=== PATIENT | female | born 1940 | race Caucasian/White ===

== ENCOUNTER 2022-01-09 09:20 | Inpatient (IN) ==
[2022-01-09] MEDS ORDERED: 0.9 % SODIUM CHLORIDE 1,000 ML IV ONE (09:34)
[2022-01-09] MEDS ORDERED: PANTOPRAZOLE 40 MG VIAL IV ONE (09:34)
[2022-01-09] MEDS ORDERED: 0.9 % SODIUM CHLORIDE 250 ML IV SCH ×4 (09:45→21:18)
[2022-01-09] MEDS ORDERED: PANTOPRAZOLE 80 MG in 0.9 % SODIUM CHLORIDE 100 ML IV SCH (09:45)
[2022-01-09] MEDS ORDERED: DESMOPRESSIN ACETATE 20 MCG in 0.9 % SODIUM CHLORIDE 50 ML IV ONE (09:49)
[2022-01-09 10:07] LABS: POC Blood Urea Nitrogen 57 mg/dL (6-20); POC CO2 9 mmol/L (22-30); POC Calcium, Ionized 1.04 mmEq/L (1.16-1.32); POC Chloride 89 mEq/L (96-108); POC Creatinine 3.7 mg/dL (0.6-1.2); POC Glucose, Random > 700 mg/dL; POC Hematocrit 40 % (36-48); POC Potassium 6.6 mEql/L (3.3-5.1); POC Sodium 118 mEq/L (133-145)
[2022-01-09] MEDS ORDERED: CALCIUM CHLORIDE 1,000 MG in DEXTROSE 5% IN WATER 50 ML IV ONE (10:12)
--- NOTE | 2022-01-09 10:13 | EKG ---
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 Measurements Intervals [place] Rate: 89 P: SC: QRS: 108 QRSD: 124 T: -24 QT: 434 QTc: 529 Interpretive Statements Accelerated junctional rhythm Right bundle branch block Inferior and Lateral ST depressions suggestive of ischemia BORDERLINE ST ELEVATION, ANTERIOR LEADS Electronically Signed On 01-09-2022 10:13:07 PDT by Darrell Carter M.D. /store/[email or web address]/[id number]
[2022-01-09] MEDS ORDERED: VANCOMYCIN 1,500 MG in 0.9 % SODIUM CHLORIDE 500 ML IV ONE (10:46)
[2022-01-09] MEDS ORDERED: CEFEPIME 2 GM VIAL IV ONE (10:46)
[2022-01-09] MEDS ORDERED: LACTATED RINGERS 1,000 ML IV ONE ×2 (10:47)
[2022-01-09] MEDS ORDERED: PHYTONADIONE 10 MG in 0.9 % SODIUM CHLORIDE 50 ML IV ONE (10:48)
[2022-01-09 10:58] LABS: Partial Thromboplastin Time 43.7 sec (20.0-37.0)
--- NOTE | 2022-01-09 11:05 | XRay Report ---
INDICATION: GI BLEED TECHNIQUE: AP supine chest x-ray COMPARISON: None FINDINGS: Right central venous catheter with its tip at the junction of the superior vena cava and right atrium. No pneumothorax identified on this AP, supine radiograph. Lungs are abnormal. Vascularity is prominent and there is probable interstitial pulmonary edema. Atypical pneumonia is possible. Heart size is at the upper limits of normal considering AP, supine positioning. IMPRESSION: 1. Right central venous catheter at the aortocaval junction 2. No pneumothorax identified on supine radiograph 3. Abnormal lungs may represent pulmonary edema or atypical pneumonia. Interpreted and Authenticated by: Darrell Wagner 01/09/22
[2022-01-09 11:16] LABS: ALT/SGPT 10 U/L (<40); AST/SGOT 10 U/L (<32); Albumin 3.5 gm/dL (3.2-5.2); Albumin/Globulin Ratio 1.3 (1.0-2.3); Alkaline Phosphatase 78 U/L (39-117); Bilirubin,Total 0.4 mg/dL (0.1-1.0); Blood Urea Nitrogen 67 mg/dL (8-23); Calcium 8.7 mg/dL (8.6-10.4); Carbon Dioxide 6 mmol/L (22-30); Chloride 73 mmol/L (96-108); Globulin 2.6 gm/dL (2.2-3.7); Glomerular Filtration Rate 10; Glucose 1253 mg/dL (70-105)
[2022-01-09] MEDS: NOREPINEPHRINE BITARTRATE 16 MG in 0.9 % SODIUM CHLORIDE 234 ML IV SCH (11:35)
[2022-01-09] MEDS: INSULIN REGULAR, HUMAN 50 UNIT in 0.9 % SODIUM CHLORIDE 99.5 ML IV SCH ×2 (11:44→21:44)
[2022-01-09 11:45] LABS: Basophils # (Auto) 0.02 K/mcL (0.00-0.30); Basophils % (Auto) 0.1 % (0.0-2.0); Eosinophils # (Auto) 0 K/mcL (0.00-0.70); Eosinophils % (Auto) 0 % (0.0-7.0); Hematocrit 41.7 % (34.1-44.9); Hemoglobin 12.5 g/dL (11.2-15.7); Lymphocytes # (Auto) 0.78 K/mcL (1.50-4.80); Lymphocytes % (Auto) 5.5 % (15.5-49.0); Mean Cell Volume 107.2 fL (80.0-100.0); Mean Platelet Volume 13.3 fL (7.4-10.4); Monocytes # (Auto) 0.51 K/mcL (0.10-0.90); Monocytes % (Auto) 3.6 % (1.0-12.0); Neutrophils % (Auto) 90.8 % (38.0-78.0); Platelet Count 107 K/mcL (140-440); RBC 3.89 M/mcL (3.59-5.38); Red Cell Distribution Width 13.2 % (11.5-14.5); WBC 14.2 K/mcL (4.5-11.0)
--- NOTE | 2022-01-09 12:51 | Emergency Department Note ---
HPI General Chief complaint: Blood Sugar Problem Stated complaint: Low blood pressure, elevated blood sugar Time Seen by Provider: 01/09/22 09:26 Source: patient and EMS Mode of arrival: EMS Limitations: no limitations History of Present Illness HPI Narrative: Narrative: 81-year-old female with history of CKD 4, diabetes, hypertension, hyperlipidemia, atrial fibrillation on anticoagulation with Coumadin, history based on prior chart with patient unable to really provide much information on her history presents via EMS for evaluation of report of syncopal events and coffee ground emesis. On EMS arrival, she is awake and alert, does not really know what happened. To me she denies any acute complaints. She denies headache or dizziness. She denies focal weakness. She denies numbness or tingling. She denies chest pain or shortness of breath. She denies any abdominal pain or nausea. She denies dysuria or frequency that she is aware of. She denies any known black tarry stools or any bloody stools. She is not really sure about any medication changes. EM caveat invoked for poor historian, but patient is alert and oriented and able to answer other questions appropriately. On arrival she is severely hypotensive, seen immediately in room Related Data Home Medications Medication Instructions Recorded Confirmed insulin lispro [Humalog KwikPen 37 units SUB-Q TID 04/13/16 01/10/22 Insulin] blood sugar diagnostic (Precision #20 each 09/10/17 01/01/22 Xtra Test) pen needle, diabetic 31 gauge x #30 each 09/10/17 01/01/22/16" (Easy Comfort Pen [place]) carvedilol 6.25 mg tablet 6.25 mg PO BID tab 04/27/18 01/09/22 iron, carbonyl 45 mg tablet 45 mg PO QHS tab 04/27/18 01/09/22 warfarin 5 mg tablet 5 mg PO QDAY tab 06/22/19 01/09/22 triamterene 37.5 1 cap PO QDAY 08/23/19 01/09/22 mg-hydrochlorothiazide 25 mg capsule alendronate 70 mg tablet 70 mg PO QWEEK 01/21/21 01/09/22 losartan 50 mg tablet 50 mg PO BID 01/09/22 01/09/22 nystatin 100,000 unit/gram topical 1 applic TOPICAL BID PRN 01/09/22 01/09/22 powder simvastatin 20 mg tablet 1 tab PO HS 01/09/22 01/09/22 Previous Rx's Medication Instructions Recorded cholecalciferol (vitamin D3) 50 2,000 unit PO QDAY #90 cap 12/20/17 mcg (2,000 unit) capsule insulin glargine 100 unit/mL (3 18 unit (0.18 mL) SUB-Q QHS #15 ml 09/19/18 mL) subcutaneous pen (Lantus Solostar U-100 Insulin) Allergies Allergy/AdvReac Type Severity Reaction Status Date / Time No Known Drug Allergies Allergy Verified 01/01/22 12:31 Review of Systems ROS ROS Narrative: Narrative: All systems ED: reviewed and negative except as stated. 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 (Chronic) CKD (chronic kidney disease) stage 4, GFR 15-29 ml/min (Chronic) Degenerative disc disease, lumbar (Acute) Secondary hyperparathyroidism of renal origin (Chronic) Localized edema due to fluid overload (Acute) Vitamin D deficiency (Chronic) Atrial fibrillation (Chronic) Iron deficiency anemia (Acute) Diastolic dysfunction (Acute) Cardiomegaly (Acute) Pulmonary hypertension (Acute) Hyperlipidemia (Acute) Hypertension (Acute) Osteoporosis (Acute) Heart trouble (Acute) Type II diabetes mellitus (Acute) Depression (Acute) Cancer (Acute) Arthritis (Acute) Medical History (Updated 01/10/22 @ 22:23 by Stan Cummins DO) Arthritis Atrial fibrillation Cancer Cardiomegaly Depression Diastolic dysfunction Heart trouble Hyperlipidemia Hypertension Iron deficiency anemia Osteoporosis Pulmonary hypertension Type II diabetes mellitus Vitamin D deficiency Surgical History Hx of colonoscopy Family History Father Stroke Social History Smoking Status: Never smoker Alcohol Intake Frequency: does not drink Substance Use: does not use Exam Narrative Narrative: Narrative: General Limitations: no limitations General appearance: Present sleepy and other (Awake but pale and acutely ill- appearing with fatigue but is able to answer questions) Head Head: Present atraumatic and normocephalic Eye Eye: Present PERRL, EOMI and other (Conjunctival pallor); Absent nystagmus ENT ENT: Present mucous membranes dry and other (Evidence of recent emesis which appears black) Neck Neck: Present normal inspection and full ROM; Absent tenderness or meningismus Chest Chest: Present normal inspection and symmetric chest wall rise; Absent tenderness Respiratory Respiratory: Present other (Tachypneic but otherwise normal); Absent respiratory distress, rales/crackles or wheezes Cardiovascular Cardiovascular: Present normal rhythm and tachycardia; Absent systolic murmur or diastolic murmur Adbominal Abdominal: Present soft; Absent distention or tenderness Rectal Rectal: Present heme (-) stool; Absent black stool Extremities Extremities: Present normal inspection and full ROM Back Back: Present normal inspection and full ROM; Absent CVA tenderness (R) or CVA tenderness (L) Neurological Neurological: Present oriented X3, CN II-XII intact and other (Sleepy but otherwise normal, answers questions poorly but oriented to person place location and events); Absent motor sensory deficit Skin Skin: Present cool, dry, pallor and other Course Vital Signs Vital signs: Vital Signs Temperature 97.4 F 01/09/22 09:24 Pulse Rate 108 H 01/09/22 09:24 Respiratory Rate 18 01/09/22 09:24 Blood Pressure 71/45 01/09/22 09:24 Pulse Oximetry (%) 98 01/09/22 09:24 Temperature 97.8 F 01/10/22 20:38 Pulse Rate 94 H 01/10/22 21:01 Respiratory Rate 33 H 01/10/22 21:01 Blood Pressure 98/64 01/10/22 21:01 Pulse Oximetry (%) 96 01/10/22 21:01 [facility] Narrative Medical decision making narrative: Narrative: Patient arrived with acute severe illness and shock with evidence of upper GI bleed with coffee-ground emesis. IV access tablets immediately and fluid bolus started, called for blood but patient is alert and oriented and refused blood transfusion. She was willing product transfused but denies blood, so deferred to crystalloid. She is on Coumadin which was reversed with 4 units of FFP. She has known severe chronic kidney disease so was given desmopressin for possible uremic bleeding. Her blood pressure did not rapidly recover, so pressors were started and central line access was obtained. She was found to be severely hyperglycemic to and following obtaining her potassium level, insulin drip was started. She was noted to be hyperkalemic and she was given calcium as well. She was given large volume fluid bolus, found to have severe metabolic acidosis likely multifactorial so bicarbonate drip was started as well. She was also found to have acute on chronic kidney disease. Given the severity of her illness, she was given day of antibiotics for possible septic etiology cultures were drawn. Lactate was elevated and did not clear with initial fluids. She is very high risk for decompensation and from this critical illness and we did closely discuss CODE STATUS, patient adamantly refuses CPR or intubation as well as any extensive surgical intervention, EGD, or dialysis. She is willing to have supportive care and see if her renal function recovers. She reports that if it is not and she is getting worse she would like to be kept comfortable but has no discomfort right now. With GI bleed edition she was given Protonix bolus, but case was discussed with GI and no indication for EGD even if patient were willing. She had prolonged stay in the emergency department and was frequently monitored for insulin adjustment, mental status, pressor changes Medical Records Medical records reviewed: Yes I reviewed the patient's medical records. Lab Data Lab results reviewed: Yes I reviewed the patient's lab results. Result diagrams: 01/10/22 17:38 01/10/22 19:54 Labs: Lab Results 01/09/22 01/09/22 01/09/22 Range/Units 09:35 09:35 09:35 WBC 14.2 H (4.5-11.0) K/mcL RBC 3.89 (3.59-5.38) M/mcL Hgb 12.5 (11.2-15.7) g/dL Hct 41.7 (34.1-44.9) % POC Hct 40 (36-48) % MCV 107.2 H (80.0-100.0) fL MCH 32.1 (26.0-34.0) pg MCHC 30.0 L (31.0-36.0) g/dL RDW 13.2 (11.5-14.5) % Plt Count 107 L (140-440) K/mcL MPV 13.3 H (7.4-10.4) fL Neut % (Auto) 90.8 H (38.0-78.0) % Lymph % (Auto) 5.5 L (15.5-49.0) % [place] % (Auto) 3.6 (1.0-12.0) % Eos % (Auto) 0 (0.0-7.0) % Baso % (Auto) 0.1 (0.0-2.0) % Lymph # (Auto) 0.78 L (1.50-4.80) K/mcL [place] # (Auto) 0.51 (0.10-0.90) K/mcL Eos # (Auto) 0 (0.00-0.70) K/mcL Baso # (Auto) 0.02 (0.00-0.30) K/mcL Absolute Neutrophils 12.84 H (1.80-8.00) K/mcL APTT 43.7 H (20.0-37.0) sec VBG Lactic Acid (0.5-2.0) mmol/L POC Sodium 118 L* (133-145) mEq/L Sodium 116 L* (133-145) mmol/L POC Potassium 6.6 H* (3.3-5.1) mEql/L Potassium 6.6 H* (3.3-5.1) mmol/L POC Chloride 89 L (96-108) mEq/L Chloride 73 L (96-108) mmol/L Carbon Dioxide 6 L* (22-30) mmol/L POC Total CO2 9 L* (22-30) mmol/L Anion Gap 37.0 H (8.0-16.0) POC BUN 57 H (6-20) mg/dL BUN 67 H (8-23) mg/dL Creatinine 3.8 H (0.6-1.1) mg/dL POC Creatinine 3.7 H (0.6-1.2) mg/dL GFR Calculation 10 Glucose 1253 H* (70-105) mg/dL POC Glucose > 700 H* mg/dL Calcium 8.7 (8.6-10.4) mg/dL POC WB Ioniz Calcium 1.04 L (1.16-1.32) mmEq/L Total Bilirubin 0.4 (0.1-1.0) mg/dL AST 10 (<32) U/L ALT 10 (<40) U/L Alkaline Phosphatase 78 (39-117) U/L Troponin T (<0.03) ng/mL Total Protein 6.1 (5.9-8.4) gm/dL Albumin 3.5 (3.2-5.2) gm/dL Globulin 2.6 (2.2-3.7) gm/dL Albumin/Globulin Ratio 1.3 (1.0-2.3) Urine Color Urine Appearance (Clear) Urine pH (5.0-9.0) Ur Specific [place] (1.000-1.035) Urine Protein (Negative) mg/dL Urine Glucose (UA) (Negative) mg/dL Urine Ketones (Negative) mg/dL Urine Occult Blood (Negative) mg/dL Urine Nitrate (Negative) Urine Bilirubin (Negative) mg/dL Urine Urobilinogen mg/dL Ur Leukocyte Esterase (Negative) /uL Urine RBC (0-3) /hpf Urine WBC (0-4) /hpf Ur Squamous Epith Cells (0-4) /hpf Urine Bacteria (0) /hpf Hyaline Casts (0-2) /lph Urine Mucus (None) /hpf Ur Culture Indicated? 01/09/22 01/09/22 01/09/22 Range/Units 09:35 09:49 12:54 WBC (4.5-11.0) K/mcL RBC (3.59-5.38) M/mcL Hgb (11.2-15.7) g/dL Hct (34.1-44.9) % POC Hct (36-48) % MCV (80.0-100.0) fL MCH (26.0-34.0) pg MCHC (31.0-36.0) g/dL RDW (11.5-14.5) % Plt Count (140-440) K/mcL MPV (7.4-10.4) fL Neut % (Auto) (38.0-78.0) % Lymph % (Auto) (15.5-49.0) % [place] % (Auto) (1.0-12.0) % Eos % (Auto) (0.0-7.0) % Baso % (Auto) (0.0-2.0) % Lymph # (Auto) (1.50-4.80) K/mcL [place] # (Auto) (0.10-0.90) K/mcL Eos # (Auto) (0.00-0.70) K/mcL Baso # (Auto) (0.00-0.30) K/mcL Absolute Neutrophils (1.80-8.00) K/mcL APTT (20.0-37.0) sec VBG Lactic Acid 4.1 H* (0.5-2.0) mmol/L POC Sodium (133-145) mEq/L Sodium 125 L (133-145) mmol/L POC Potassium (3.3-5.1) mEql/L Potassium 5.9 H* (3.3-5.1) mmol/L POC Chloride (96-108) mEq/L Chloride 81 L (96-108) mmol/L Carbon Dioxide 7 L* (22-30) mmol/L POC Total CO2 (22-30) mmol/L Anion Gap 37.0 H (8.0-16.0) POC BUN (6-20) mg/dL BUN 65 H (8-23) mg/dL Creatinine 3.6 H (0.6-1.1) mg/dL POC Creatinine (0.6-1.2) mg/dL GFR Calculation 11 Glucose 1094 H* (70-105) mg/dL POC Glucose mg/dL Calcium 8.8 (8.6-10.4) mg/dL POC WB Ioniz Calcium (1.16-1.32) mmEq/L Total Bilirubin (0.1-1.0) mg/dL AST (<32) U/L ALT (<40) U/L Alkaline Phosphatase (39-117) U/L Troponin T 0.03 H (<0.03) ng/mL Total Protein (5.9-8.4) gm/dL Albumin (3.2-5.2) gm/dL Globulin (2.2-3.7) gm/dL Albumin/Globulin Ratio (1.0-2.3) Urine Color Urine Appearance (Clear) Urine pH (5.0-9.0) Ur Specific [place] (1.000-1.035) Urine Protein (Negative) mg/dL Urine Glucose (UA) (Negative) mg/dL Urine Ketones (Negative) mg/dL Urine Occult Blood (Negative) mg/dL Urine Nitrate (Negative) Urine Bilirubin (Negative) mg/dL Urine Urobilinogen mg/dL Ur Leukocyte Esterase (Negative) /uL Urine RBC (0-3) /hpf Urine WBC (0-4) /hpf Ur Squamous Epith Cells (0-4) /hpf Urine Bacteria (0) /hpf Hyaline Casts (0-2) /lph Urine Mucus (None) /hpf Ur Culture Indicated? 01/09/22 01/09/22 01/09/22 Range/Units 12:54 13:53 14:46 WBC (4.5-11.0) K/mcL RBC (3.59-5.38) M/mcL Hgb (11.2-15.7) g/dL Hct (34.1-44.9) % POC Hct 39 (36-48) % MCV (80.0-100.0) fL MCH (26.0-34.0) pg MCHC (31.0-36.0) g/dL RDW (11.5-14.5) % Plt Count (140-440) K/mcL MPV (7.4-10.4) fL Neut % (Auto) (38.0-78.0) % Lymph % (Auto) (15.5-49.0) % [place] % (Auto) (1.0-12.0) % Eos % (Auto) (0.0-7.0) % Baso % (Auto) (0.0-2.0) % Lymph # (Auto) (1.50-4.80) K/mcL [place] # (Auto) (0.10-0.90) K/mcL Eos # (Auto) (0.00-0.70) K/mcL Baso # (Auto) (0.00-0.30) K/mcL Absolute Neutrophils (1.80-8.00) K/mcL APTT (20.0-37.0) sec VBG Lactic Acid 4.4 H* (0.5-2.0) mmol/L POC Sodium 126 L (133-145) mEq/L Sodium 123 L 123 L (133-145) mmol/L POC Potassium 5.2 H (3.3-5.1) mEql/L Potassium 5.1 5.2 H (3.3-5.1) mmol/L POC Chloride 95 L (96-108) mEq/L Chloride 81 L 82 L (96-108) mmol/L Carbon Dioxide 7 L* 8 L* (22-30) mmol/L POC Total CO2 11 L (22-30) mmol/L Anion Gap 35.0 H 33.0 H (8.0-16.0) POC BUN 63 H (6-20) mg/dL BUN 62 H 64 H (8-23) mg/dL Creatinine 3.6 H 3.7 H (0.6-1.1) mg/dL POC Creatinine 3.4 H (0.6-1.2) mg/dL GFR Calculation 11 11 Glucose 1003 H* 1001 H* (70-105) mg/dL POC Glucose > 700 H* mg/dL Calcium 9.0 8.9 (8.6-10.4) mg/dL POC WB Ioniz Calcium 1.15 L (1.16-1.32) mmEq/L Total Bilirubin (0.1-1.0) mg/dL AST (<32) U/L ALT (<40) U/L Alkaline Phosphatase (39-117) U/L Troponin T (<0.03) ng/mL Total Protein (5.9-8.4) gm/dL Albumin (3.2-5.2) gm/dL Globulin (2.2-3.7) gm/dL Albumin/Globulin Ratio (1.0-2.3) Urine Color Urine Appearance (Clear) Urine pH (5.0-9.0) Ur Specific [place] (1.000-1.035) Urine Protein (Negative) mg/dL Urine Glucose (UA) (Negative) mg/dL Urine Ketones (Negative) mg/dL Urine Occult Blood (Negative) mg/dL Urine Nitrate (Negative) Urine Bilirubin (Negative) mg/dL Urine Urobilinogen mg/dL Ur Leukocyte Esterase (Negative) /uL Urine RBC (0-3) /hpf Urine WBC (0-4) /hpf Ur Squamous Epith Cells (0-4) /hpf Urine Bacteria (0) /hpf Hyaline Casts (0-2) /lph Urine Mucus (None) /hpf Ur Culture Indicated? 01/09/22 01/09/22 01/09/22 Range/Units 15:43 16:30 17:49 WBC (4.5-11.0) K/mcL RBC (3.59-5.38) M/mcL Hgb (11.2-15.7) g/dL Hct (34.1-44.9) % POC Hct 35 L (36-48) % MCV (80.0-100.0) fL MCH (26.0-34.0) pg MCHC (31.0-36.0) g/dL RDW (11.5-14.5) % Plt Count (140-440) K/mcL MPV (7.4-10.4) fL Neut % (Auto) (38.0-78.0) % Lymph % (Auto) (15.5-49.0) % [place] % (Auto) (1.0-12.0) % Eos % (Auto) (0.0-7.0) % Baso % (Auto) (0.0-2.0) % Lymph # (Auto) (1.50-4.80) K/mcL [place] # (Auto) (0.10-0.90) K/mcL Eos # (Auto) (0.00-0.70) K/mcL Baso # (Auto) (0.00-0.30) K/mcL Absolute Neutrophils (1.80-8.00) K/mcL APTT (20.0-37.0) sec VBG Lactic Acid (0.5-2.0) mmol/L POC Sodium 128 L (133-145) mEq/L Sodium 125 L (133-145) mmol/L POC Potassium 4.5 (3.3-5.1) mEql/L Potassium 4.8 (3.3-5.1) mmol/L POC Chloride 96 (96-108) mEq/L Chloride 83 L (96-108) mmol/L Carbon Dioxide 11 L (22-30) mmol/L POC Total CO2 14 L (22-30) mmol/L Anion Gap 31.0 H (8.0-16.0) POC BUN 60 H (6-20) mg/dL BUN 64 H (8-23) mg/dL Creatinine 3.5 H (0.6-1.1) mg/dL POC Creatinine 3.4 H (0.6-1.2) mg/dL GFR Calculation 12 Glucose 921 H* (70-105) mg/dL POC Glucose > 700 H* mg/dL Calcium 9.3 (8.6-10.4) mg/dL POC WB Ioniz Calcium 1.09 L (1.16-1.32) mmEq/L Total Bilirubin (0.1-1.0) mg/dL AST (<32) U/L ALT (<40) U/L Alkaline Phosphatase (39-117) U/L Troponin T (<0.03) ng/mL Total Protein (5.9-8.4) gm/dL Albumin (3.2-5.2) gm/dL Globulin (2.2-3.7) gm/dL Albumin/Globulin Ratio (1.0-2.3) Urine Color Yellow Urine Appearance Hazy A (Clear) Urine pH 5.0 (5.0-9.0) Ur Specific [place] 1.020 (1.000-1.035) Urine Protein Negative (Negative) mg/dL Urine Glucose (UA) >=500 A (Negative) mg/dL Urine Ketones 20 A (Negative) mg/dL Urine Occult Blood 0.03 (Negative) mg/dL Urine Nitrate Negative (Negative) Urine Bilirubin Negative (Negative) mg/dL Urine Urobilinogen Negative mg/dL Ur Leukocyte Esterase Negative (Negative) /uL Urine RBC 1 (0-3) /hpf Urine WBC 3 (0-4) /hpf Ur Squamous Epith Cells 0 (0-4) /hpf Urine Bacteria None (0) /hpf Hyaline Casts 7 H (0-2) /lph Urine Mucus Few A (None) /hpf Ur Culture Indicated? No 01/09/22 01/09/22 Range/Units 18:01 19:55 WBC (4.5-11.0) K/mcL RBC (3.59-5.38) M/mcL Hgb (11.2-15.7) g/dL Hct (34.1-44.9) % POC Hct 37 (36-48) % MCV (80.0-100.0) fL MCH (26.0-34.0) pg MCHC (31.0-36.0) g/dL RDW (11.5-14.5) % Plt Count (140-440) K/mcL MPV (7.4-10.4) fL Neut % (Auto) (38.0-78.0) % Lymph % (Auto) (15.5-49.0) % [place] % (Auto) (1.0-12.0) % Eos % (Auto) (0.0-7.0) % Baso % (Auto) (0.0-2.0) % Lymph # (Auto) (1.50-4.80) K/mcL [place] # (Auto) (0.10-0.90) K/mcL Eos # (Auto) (0.00-0.70) K/mcL Baso # (Auto) (0.00-0.30) K/mcL Absolute Neutrophils (1.80-8.00) K/mcL APTT (20.0-37.0) sec VBG Lactic Acid (0.5-2.0) mmol/L POC Sodium 130 L (133-145) mEq/L Sodium 125 L (133-145) mmol/L POC Potassium 4.4 (3.3-5.1) mEql/L Potassium 4.4 (3.3-5.1) mmol/L POC Chloride 96 (96-108) mEq/L Chloride 86 L (96-108) mmol/L Carbon Dioxide 11 L (22-30) mmol/L POC Total CO2 16 L (22-30) mmol/L Anion Gap 28.0 H (8.0-16.0) POC BUN 61 H (6-20) mg/dL BUN 65 H (8-23) mg/dL Creatinine 3.6 H (0.6-1.1) mg/dL POC Creatinine 3.5 H (0.6-1.2) mg/dL GFR Calculation 11 Glucose 801 H* (70-105) mg/dL POC Glucose 658 H* mg/dL Calcium 9.0 (8.6-10.4) mg/dL POC WB Ioniz Calcium 1.14 L (1.16-1.32) mmEq/L Total Bilirubin (0.1-1.0) mg/dL AST (<32) U/L ALT (<40) U/L Alkaline Phosphatase (39-117) U/L Troponin T (<0.03) ng/mL Total Protein (5.9-8.4) gm/dL Albumin (3.2-5.2) gm/dL Globulin (2.2-3.7) gm/dL Albumin/Globulin Ratio (1.0-2.3) Urine Color Urine Appearance (Clear) Urine pH (5.0-9.0) Ur Specific [place] (1.000-1.035) Urine Protein (Negative) mg/dL Urine Glucose (UA) (Negative) mg/dL Urine Ketones (Negative) mg/dL Urine Occult Blood (Negative) mg/dL Urine Nitrate (Negative) Urine Bilirubin (Negative) mg/dL Urine Urobilinogen mg/dL Ur Leukocyte Esterase (Negative) /uL Urine RBC (0-3) /hpf Urine WBC (0-4) /hpf Ur Squamous Epith Cells (0-4) /hpf Urine Bacteria (0) /hpf Hyaline Casts (0-2) /lph Urine Mucus (None) /hpf Ur Culture Indicated? ED POC Tests ED POC Tests: KATHY - SARS Antigen Negative EKG Data EKG #1: EKG attestation: Yes I reviewed and interpreted this EKG. EKG results narrative: Atrial fibrillation at a rate of 89. Right axis. QTC 529. Right bundle branch block. Inferior T wave inversions, no acute ST changes. Abnormal EK Procedures CVP Indication: Venous access and Hemodynamically unstable Location: IJ Preparation: Sterile field and Chlorhexidine Anesthesia: Lidocaine Amount: 3mL Post Procedure: Adequate blood return, Adequate fluid flow and Equal bilateral breath sounds Patient Tolerated: Well Complications: None Other: Verbal consent obtained directly from patient. Ultrasound utilized with Seldinger technique, no complications CC TIME Critical Care Time Attestation: Approximately 180 minutes of critical care time was used in order to assess and manage the high probability of imminent or life threatening deterioration to DKA, multisystem organ failure which required my highest level of preparedness and interventions with frequent patient assessments. This time is excluding time spent on separately billable procedures. Discharge Plan Patient/Caregiver Discharge Instructions Pt seen by ASSISTANT [employer]CC[employer] COACH/PA only: No Clinical Impression: Diabetic keto-acidosis, Acute renal failure, Acute upper gastrointestinal bleeding Patient Disposition: Xfer As Inpt ([facility]) Discharge Date/Time: 01/09/22 20:56 Discharge Location: [facility]
[2022-01-09] MEDS: 0.9 % SODIUM CHLORIDE 250 ML IV SCH ×2 (13:40→23:20)
--- NOTE | 2022-01-09 14:04 | Cat Scan Report ---
INDICATION: shock, ? septic COMPARISON: Chest x-ray dated 01/09/2022 TECHNIQUE: Axial images were obtained through the abdomen and pelvis. Sagittally and coronally reformatted images. FINDINGS: Lung bases:Suboptimally evaluated as this patient is unable to suspend respiration. No parenchymal consolidation. There are interstitial infiltrates which may represent pulmonary edema. Interstitial pneumonia is possible. There is no pleural fluid. There is cardiomegaly with biatrial cardiac enlargement. Liver:Negative to the limits of noncontrast enhanced examination. Liver contour is smooth without evidence for cirrhosis Gallbladder, bilary:Previous cholecystectomy. No intrahepatic bile duct dilatation. Common bile measures 11 mm. No detectable choledocholithiasis Spleen:No splenomegaly Pancreas:No pancreatic mass. No peripancreatic abnormality Adrenal glands:Negative Kidneys,ureters,bladder:No solid renal mass. No hydronephrosis. No obstructing or nonobstructing calculi. No hydroureter. No ureteral calculus. No bladder stone. No detectable bladder mass. Gastrointestinal:Positive sigmoid diverticulosis. No diverticulitis. No detectable colonic mass Negative small bowel. No mechanical small bowel obstruction. No bowel wall thickening. No focal abnormality. Stomach is distended and fluid-filled. Esophagogastric tube should be considered Appendix: The appendix is not well visualized. No evidence for appendicitis Vascular:There is calcification of the abdominal aorta. No abdominal aortic aneurysm Lymphatic:No retroperitoneal adenopathy. No significant mesenteric adenopathy. Mesentery, peritoneum: There is minimal free pelvic fluid. No intra-abdominal abscess. No pneumoperitoneum Reproductive:Uterus is not identified. No pelvic mass Musculoskeletal:There is compression deformity of the L3 superior endplate. No evidence for acute compression fractures. No cortical destruction. No findings of osteomyelitis. Sacrum is negative. Pelvis is negative. No anterior abdominal wall or inguinal hernia. No subcutaneous gas bubbles or abscess. IMPRESSION: 1. Bibasilar pulmonary parenchymal infiltrates may represent pulmonary edema or interstitial pneumonia 2. Cardiomegaly and biatrial enlargement 3. Previous cholecystectomy. Prominent common bile duct without intrahepatic bile duct dilatation 4. Sigmoid diverticulosis. No diverticulitis 5. Distended fluid-filled stomach. Esophagogastric tube should be considered 6. Minimal free intraperitoneal fluid in the pelvis. No intra-abdominal abscess The exam was performed using radiation dose optimization techniques including, but not limited to, automated exposure control, adjustment of the mA and/or kV according to patient size and use of iterative reconstruction technique. Interpreted and Authenticated by: Darrell Wagner 01/09/22
[2022-01-09 15:06] LABS: POC Blood Urea Nitrogen 63 mg/dL (6-20); POC CO2 11 mmol/L (22-30); POC Calcium, Ionized 1.15 mmEq/L (1.16-1.32); POC Chloride 95 mEq/L (96-108); POC Creatinine 3.4 mg/dL (0.6-1.2); POC Glucose, Random > 700 mg/dL; POC Hematocrit 39 % (36-48); POC Potassium 5.2 mEql/L (3.3-5.1); POC Sodium 126 mEq/L (133-145)
[2022-01-09 15:28] LABS: Blood Urea Nitrogen 65 mg/dL (8-23); Calcium 8.8 mg/dL (8.6-10.4); Carbon Dioxide 7 mmol/L (22-30); Chloride 81 mmol/L (96-108); Glomerular Filtration Rate 11; Glucose 1094 mg/dL (70-105)
[2022-01-09] MEDS ORDERED: WATER IV ONE (15:28)
[2022-01-09] MEDS ORDERED: POTASSIUM CHLORIDE IV ONE (15:28)
[2022-01-09] MEDS ORDERED: DEXTROSE 5% IV ONE (15:28)
[2022-01-09] MEDS: SODIUM BICARBONATE VIAL 150 MEQ in WATER FOR INJECTION,STERILE 850 ML IV SCH (15:35)
[2022-01-09 15:43] LABS: Blood Urea Nitrogen 62 mg/dL (8-23); Carbon Dioxide 7 mmol/L (22-30); Chloride 81 mmol/L (96-108); Glomerular Filtration Rate 11; Glucose 1003 mg/dL (70-105)
[2022-01-09] MEDS ORDERED: INSULIN REGULAR, HUMAN 1 UNIT/0.01 ML UNIT IV ONE ×5 (15:43→23:17)
[2022-01-09 16:20] LABS: Blood Urea Nitrogen 64 mg/dL (8-23); Calcium 8.9 mg/dL (8.6-10.4); Carbon Dioxide 8 mmol/L (22-30); Chloride 82 mmol/L (96-108); Glomerular Filtration Rate 11; Glucose 1001 mg/dL (70-105)
[2022-01-09 16:40] LABS: Blood Urea Nitrogen 64 mg/dL (8-23); Calcium 9.3 mg/dL (8.6-10.4); Carbon Dioxide 11 mmol/L (22-30); Chloride 83 mmol/L (96-108)
[2022-01-09 16:58] LABS: Glomerular Filtration Rate 12; Glucose 921 mg/dL (70-105)
[2022-01-09 17:42] LABS: Appearance,Urine HAZY (Clear); Bilirubin,Urine Negative (Negative); Color,Urine YELLOW; Culture Indicated,Urine No; Glucose,Urine (UA) >=500 mg/dL (Negative); Ketones,Urine 20 mg/dL (Negative); Leukocyte Esterase,Urine Negative /uL (Negative); Mucus,Urine FEW /hpf; Nitrate,Urine Negative (Negative); Protein,Urine Negative (Negative); Urine Blood 0.03 mg/dL (Negative); Urine Hyaline Cast 7 /lph (0-2); Urine RBC 1 /hpf (0-3); Urine Squamous Epithelial Cell 0 /hpf (0-4); Urine WBC 3 /hpf (0-4); Urobilinogen,Urine Negative
[2022-01-09 18:01] LABS: POC Blood Urea Nitrogen 60 mg/dL (6-20); POC CO2 14 mmol/L (22-30); POC Calcium, Ionized 1.09 mmEq/L (1.16-1.32); POC Chloride 96 mEq/L (96-108); POC Creatinine 3.4 mg/dL (0.6-1.2); POC Glucose, Random > 700 mg/dL; POC Hematocrit 35 % (36-48); POC Potassium 4.5 mEql/L (3.3-5.1); POC Sodium 128 mEq/L (133-145)
--- NOTE | 2022-01-09 19:28 | Internal Med History&Physical ---
HPI History of Present Illness Patient information: Note initiated : 01/09/22 at 7:17 pm Service Date, if different from initiated Date: [] Patient: Maribel Reaves 81 y/o F admitted on for Low blood pressure, elevated blood sugar. Chief Complaint: [] History of present illness: Ms. Reaves is a 81 year old male with a history of hypertension, hyperlipidemia, insulin-dependent type 2 diabetes mellitus, atrial fibrillation on Coumadin, left ventricular diastolic dysfunction, pulmonary hypertension, chronic kidney disease stage IV who presented to the emergency department via EMS after a syncopal event and coffee ground emesis. In the emergency department the patient was found to be in shock, diabetic ketoacidosis as well as a lactic acidosis complicated by an acute on chronic kidney disease injury. There is concern for septic shock, the patient was started on broad-spectrum antibiotics, IV fluid resuscitation, Levophed for vasopressor support, and insulin infusion for diabetic ketoacidosis as well as a bicarbonate IV infusion for severe metabolic acidosis. Sepsis work-up included a urinalysis which was not suggestive of a UTI, chest x-ray which was suggestive of pulmonary vascular congestion, a CT abdomen pelvis showed bibasilar pulmonary parenchymal infiltrates that could represent pulmonary edema or interstitial pneumonia, cardiomegaly, previous cholecystectomy with prominent common bile duct without intrahepatic duct dilat ion, a distended fluid-filled stomach otherwise no clear reported evidence of an infectious process. Blood cultures were drawn in the ED. The patient required an right IJ central line placement. CODE STATUS was reviewed with the patient, the patient wishes to be DNR/DNI but is okay with medical management including vasopressor medications for shock. Hospital medicine was consulted for admissio n. Review of system Constitutional: no fever, fatigue, or weight loss Eyes: no vision changes or pain Cardiovascular: no chest pain, no palpitations Respiratory: no cough or dyspnea Gastrointestinal: no abdominal pain, no nausea, vomiting, or diarrhea Genitourinary: no dysuria or difficulty voiding Musculoskeletal: no arthralgia or myalgia Integumentary: no skin lesion or wound Neurological: no focal weakness or numbness Psychiatric: no anxiety or depression Physical exam Head: Atraumatic, normal inspection. Eyes: normal appearance, no scleral icterus. Neck: Right IJ central line, full ROM Respiratory: no respiratory distress. Cardiovascular: normal rate and rhythm, S1, S2. GI/Abdominal: soft, nontender, no guarding. Extremities: 1+ bilateral pitting edema. Neurological: CN II-XII intact, intact motor, intact sensation. Psychiatric: Withdrawn, impaired short-term memory. Skin: warm, normal color PFSH PFSH All Active Problems Hypertension in stage 4 chronic kidney disease due to type 2 diabetes mellitus (Chronic) CKD (chronic kidney disease) stage 4, GFR 15-29 ml/min (Chronic) Degenerative disc disease, lumbar (Acute) Secondary hyperparathyroidism of renal origin (Chronic) Localized edema due to fluid overload (Acute) Vitamin D deficiency (Chronic) Atrial fibrillation (Chronic) Iron deficiency anemia (Acute) Diastolic dysfunction (Acute) Cardiomegaly (Acute) Pulmonary hypertension (Acute) Hyperlipidemia (Acute) Hypertension (Acute) Osteoporosis (Acute) Heart trouble (Acute) Type II diabetes mellitus (Acute) Depression (Acute) Cancer (Acute) Arthritis (Acute) Medical History Arthritis Atrial fibrillation Cancer Cardiomegaly Depression Diastolic dysfunction Heart trouble Hyperlipidemia Hypertension Iron deficiency anemia Osteoporosis Pulmonary hypertension Type II diabetes mellitus Vitamin D deficiency Surgical History Hx of colonoscopy Family History Father Stroke Social History 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 marital status: physical activity: walking and swimming frequency: 3-4 times per week alcohol intake frequency: does not drink substance use type: does not use seatbelt use: always MEDS/ALLERGIES Home Medications and Allergies Home Medications Medication Instructions Recorded Confirmed Type insulin lispro [Humalog KwikPen 37 units SUB-Q TID 04/13/16 01/01/22 History Insulin] blood sugar diagnostic (Precision #20 each 09/10/17 01/01/22 History Xtra Test) pen needle, diabetic 31 gauge x #30 each 09/10/17 01/01/22 History 3/16" (Easy Comfort Pen [place]) cholecalciferol (vitamin D3) 50 2,000 unit PO QDAY #90 cap 12/20/17 01/09/22 Rx mcg (2,000 unit) capsule carvedilol 6.25 mg tablet 6.25 mg PO BID tab 04/27/18 01/09/22 History iron, carbonyl 45 mg tablet 45 mg PO QHS tab 04/27/18 01/09/22 History insulin glargine 100 unit/mL (3 18 unit (0.18 mL) SUB-Q QHS #15 ml 09/19/18 01/09/22 Rx mL) subcutaneous pen (Lantus Solostar U-100 Insulin) warfarin 5 mg tablet 5 mg PO QDAY tab 06/22/19 01/09/22 History triamterene 37.5 1 cap PO QDAY 08/23/19 01/09/22 History mg-hydrochlorothiazide 25 mg capsule alendronate 70 mg tablet 70 mg PO QWEEK 01/21/21 01/09/22 History losartan 50 mg tablet 50 mg PO BID 01/09/22 01/09/22 History nystatin 100,000 unit/gram topical 1 applic TOPICAL BID PRN 01/09/22 01/09/22 History powder simvastatin 20 mg tablet 1 tab PO HS 01/09/22 01/09/22 History Allergies Allergy/AdvReac Type Severity Reaction Status Date / Time No Known Drug Allergies Allergy Verified 01/01/22 12:31 EXAM Constitutional Vitals: Temp Pulse Resp BP Pulse Ox 97.4 F 76 18 126/78 99 01/09/22 09:24 01/09/22 18:30 01/09/22 18:40 01/09/22 18:40 01/09/22 18:40 DATA Data Completed and Pending Labs: Labs from last 24 hours 01/09/22 01/09/22 01/09/22 18:01 17:49 16:30 WBC RBC Hgb Hct POC Hct 35 L MCV MCH MCHC RDW Plt Count MPV Neut % (Auto) Lymph % (Auto) [place] % (Auto) Eos % (Auto) Baso % (Auto) Lymph # (Auto) [place] # (Auto) Eos # (Auto) Baso # (Auto) Absolute Neutrophils POC PT POC INR APTT VBG Lactic Acid POC Sodium 128 L Sodium Pending POC Potassium 4.5 Potassium Pending POC Chloride 96 Chloride Pending Carbon Dioxide Pending POC Total CO2 14 L Anion Gap Pending POC BUN 60 H BUN Pending Creatinine Pending POC Creatinine 3.4 H GFR Calculation Pending Glucose Pending POC Glucose > 700 H* Calcium Pending POC WB Ioniz Calcium 1.09 L Total Bilirubin AST ALT Alkaline Phosphatase Troponin T Total Protein Albumin Globulin Albumin/Globulin Ratio Urine Color Yellow Urine Appearance Hazy A Urine pH 5.0 Ur Specific Guild 1.020 Urine Protein Negative Urine Glucose (UA) >=500 A Urine Ketones 20 A Urine Occult Blood 0.03 Urine Nitrate Negative Urine Bilirubin Negative Urine Urobilinogen Negative Ur Leukocyte Esterase Negative Urine RBC 1 Urine WBC 3 Ur Squamous Epith Cells 0 Urine Bacteria None Hyaline Casts 7 H Urine Mucus Few A Ur Culture Indicated? No 01/09/22 01/09/22 01/09/22 15:43 14:46 13:53 WBC RBC Hgb Hct POC Hct 39 MCV MCH MCHC RDW Plt Count MPV Neut % (Auto) Lymph % (Auto) [place] % (Auto) Eos % (Auto) Baso % (Auto) Lymph # (Auto) [place] # (Auto) Eos # (Auto) Baso # (Auto) Absolute Neutrophils POC PT POC INR APTT VBG Lactic Acid POC Sodium 126 L Sodium 125 L 123 L 123 L POC Potassium 5.2 H Potassium 4.8 5.2 H 5.1 POC Chloride 95 L Chloride 83 L 82 L 81 L Carbon Dioxide 11 L 8 L* 7 L* POC Total CO2 11 L Anion Gap 31.0 H 33.0 H 35.0 H POC BUN 63 H BUN 64 H 64 H 62 H Creatinine 3.5 H 3.7 H 3.6 H POC Creatinine 3.4 H GFR Calculation 12 11 11 Glucose 921 H* 1001 H* 1003 H* POC Glucose > 700 H* Calcium 9.3 8.9 9.0 POC WB Ioniz Calcium 1.15 L Total Bilirubin AST ALT Alkaline Phosphatase Troponin T Total Protein Albumin Globulin Albumin/Globulin Ratio Urine Color Urine Appearance Urine pH Ur Specific Guild Urine Protein Urine Glucose (UA) Urine Ketones Urine Occult Blood Urine Nitrate Urine Bilirubin Urine Urobilinogen Ur Leukocyte Esterase Urine RBC Urine WBC Ur Squamous Epith Cells Urine Bacteria Hyaline Casts Urine Mucus Ur Culture Indicated? 01/09/22 01/09/22 01/09/22 12:54 12:54 09:49 WBC RBC Hgb Hct POC Hct MCV MCH MCHC RDW Plt Count MPV Neut % (Auto) Lymph % (Auto) [place] % (Auto) Eos % (Auto) Baso % (Auto) Lymph # (Auto) [place] # (Auto) Eos # (Auto) Baso # (Auto) Absolute Neutrophils POC PT POC INR APTT VBG Lactic Acid 4.4 H* 4.1 H* POC Sodium Sodium 125 L POC Potassium Potassium 5.9 H* POC Chloride Chloride 81 L Carbon Dioxide 7 L* POC Total CO2 Anion Gap 37.0 H POC BUN BUN 65 H Creatinine 3.6 H POC Creatinine GFR Calculation 11 Glucose 1094 H* POC Glucose Calcium 8.8 POC WB Ioniz Calcium Total Bilirubin AST ALT Alkaline Phosphatase Troponin T Total Protein Albumin Globulin Albumin/Globulin Ratio Urine Color Urine Appearance Urine pH Ur Specific Guild Urine Protein Urine Glucose (UA) Urine Ketones Urine Occult Blood Urine Nitrate Urine Bilirubin Urine Urobilinogen Ur Leukocyte Esterase Urine RBC Urine WBC Ur Squamous Epith Cells Urine Bacteria Hyaline Casts Urine Mucus Ur Culture Indicated? 01/09/22 01/09/22 01/09/22 09:35 09:35 09:35 WBC RBC Hgb Hct POC Hct 40 MCV MCH MCHC RDW Plt Count MPV Neut % (Auto) Lymph % (Auto) [place] % (Auto) Eos % (Auto) Baso % (Auto) Lymph # (Auto) [place] # (Auto) Eos # (Auto) Baso # (Auto) Absolute Neutrophils POC PT Pending POC INR Pending APTT 43.7 H VBG Lactic Acid POC Sodium 118 L* Sodium 116 L* POC Potassium 6.6 H* Potassium 6.6 H* POC Chloride 89 L Chloride 73 L Carbon Dioxide 6 L* POC Total CO2 9 L* Anion Gap 37.0 H POC BUN 57 H BUN 67 H Creatinine 3.8 H POC Creatinine 3.7 H GFR Calculation 10 Glucose 1253 H* POC Glucose > 700 H* Calcium 8.7 POC WB Ioniz Calcium 1.04 L Total Bilirubin 0.4 AST 10 ALT 10 Alkaline Phosphatase 78 Troponin T 0.03 H Total Protein 6.1 Albumin 3.5 Globulin 2.6 Albumin/Globulin Ratio 1.3 Urine Color Urine Appearance Urine pH Ur Specific Guild Urine Protein Urine Glucose (UA) Urine Ketones Urine Occult Blood Urine Nitrate Urine Bilirubin Urine Urobilinogen Ur Leukocyte Esterase Urine RBC Urine WBC Ur Squamous Epith Cells Urine Bacteria Hyaline Casts Urine Mucus Ur Culture Indicated? 01/09/22 09:35 WBC 14.2 H RBC 3.89 Hgb 12.5 Hct 41.7 POC Hct MCV 107.2 H MCH 32.1 MCHC 30.0 L RDW 13.2 Plt Count 107 L MPV 13.3 H Neut % (Auto) 90.8 H Lymph % (Auto) 5.5 L [place] % (Auto) 3.6 Eos % (Auto) 0 Baso % (Auto) 0.1 Lymph # (Auto) 0.78 L [place] # (Auto) 0.51 Eos # (Auto) 0 Baso # (Auto) 0.02 Absolute Neutrophils 12.84 H POC PT POC INR APTT VBG Lactic Acid POC Sodium Sodium POC Potassium Potassium POC Chloride Chloride Carbon Dioxide POC Total CO2 Anion Gap POC BUN BUN Creatinine POC Creatinine GFR Calculation Glucose POC Glucose Calcium POC WB Ioniz Calcium Total Bilirubin AST ALT Alkaline Phosphatase Troponin T Total Protein Albumin Globulin Albumin/Globulin Ratio Urine Color Urine Appearance Urine pH Ur Specific Guild Urine Protein Urine Glucose (UA) Urine Ketones Urine Occult Blood Urine Nitrate Urine Bilirubin Urine Urobilinogen Ur Leukocyte Esterase Urine RBC Urine WBC Ur Squamous Epith Cells Urine Bacteria Hyaline Casts Urine Mucus Ur Culture Indicated? A/P Narrative A/P Narrative: Assessment: 81 year old male with a history of hypertension, hyperlipidemia, insulin-dependent type 2 diabetes mellitus, atrial fibrillation on Coumadin, left ventricular diastolic dysfunction, pulmonary hypertension, chronic kidney disease stage IV who presented to the emergency department via EMS after a syncopal event and coffee ground emesis. In the emergency department, the patient was found to be hypotensive requiring vasopressor support and large amount of IV fluid. There is concern the patient has septic shock as her lactic acid was elevated at 4.4. The patient was also found to be in diabetic ketoacidosis. The patient received desmopressin in the ED for possible uremic bleeding. #Shock, possibly due to sepsis #Combined diabetic ketoacidosis and lactic acidosis #Acute on chronic kidney disease IV injury #Concern for upper GI bleed. #Syncopal episode. #Atrial fibrillation on Coumadin #Type 2 diabetes mellitus #Essential hypertension #Hyperlipidemia #Obesity BMI 33 Plan -Vancomycin and cefepime IV for now. -IV fluid with sodium bicarbonate for now. -Levophed to maintain SBP greater than 90. -Follow lactic acid until downtrending. -Follow blood cultures. -Insulin infusion per diabetic ketoacidosis protocol. -Trend VBG, renal function panel, magnesium until DKA resolved. -Trend hemoglobin, if downtrending consult GI. -Holding Coumadin. -If hemoglobin trends down, reverse INR. -Type and screen. -Protonix IV twice daily for concern of GI bleed. -Follow renal function and urine output, avoid nephrotoxic meds. -Hold home Coreg, losartan, hydrochlorothiazide, triamterene. -Consider NG tube for suctioning if the patient develops emesis. -N.p.o. for now. -DVT prophylaxis: SCD due to concern for GI bleed. -CODE STATUS: DNR/DNI -Disposition: TBD Time Spent With Patient Time: Total time spent is greater than 50% in coordination of care (as documented) at patient's floor/unit and/or counseling patient:
[2022-01-09 19:35] LABS: Blood Urea Nitrogen 65 mg/dL (8-23); Carbon Dioxide 11 mmol/L (22-30); Chloride 86 mmol/L (96-108); Glomerular Filtration Rate 11; Glucose 801 mg/dL (70-105)
[2022-01-09] MEDS ORDERED: POTASSIUM CHLORIDE 20 MEQ in DEXTROSE 5% IN WATER 100 ML IV ONE (19:37)
[2022-01-09 20:07] LABS: POC Blood Urea Nitrogen 61 mg/dL (6-20); POC CO2 16 mmol/L (22-30); POC Calcium, Ionized 1.14 mmEq/L (1.16-1.32); POC Chloride 96 mEq/L (96-108); POC Creatinine 3.5 mg/dL (0.6-1.2); POC Glucose, Random 658 mg/dL (70-105); POC Hematocrit 37 % (36-48); POC Potassium 4.4 mEql/L (3.3-5.1); POC Sodium 130 mEq/L (133-145)
[2022-01-09] MEDS ORDERED: VANCOMYCIN PER PHARMACY IV SCH (21:18)
[2022-01-09] MEDS ORDERED: INSULIN REGULAR, HUMAN 1 UNIT/0.01 ML UNIT ONE ×3 (21:39→23:25)
[2022-01-09] MEDS: 0.9 % SODIUM CHLORIDE 10 ML SYRINGE IV SCH (22:02)
[2022-01-09 22:34] LABS: POC Calcium, Ionized 1.14 mmEq/L (1.16-1.32); POC Creatinine 3.5 mg/dL (0.6-1.2); POC Potassium 4.8 mEql/L (3.3-5.1)
[2022-01-09 22:36] LABS: ABG Methemoglobin 0.2 % (0.4-1.5); Total Hemoglobin 13.7 gm/Dl (12.0-15.0); VBG Base Excess -8 (-2-3); VBG HCO3 16.6 mmol/L (24.0-28.0); VBG Oxygen Saturation 72.9 % (40.0-70.0); VBG PCO2 32.1 mmHg (41.0-51.0); VBG PH 7.33 U (7.32-7.42); VBG PO2 37.8 mmHg (25.0-40.0); VBG Total CO2 17.6 mmol/L (25.0-29.0)
[2022-01-09] MEDS: PANTOPRAZOLE 40 MG VIAL IV SCH (23:09)
[2022-01-09 23:10] LABS: ALT/SGPT 13 U/L (<40); AST/SGOT 17 U/L (<32); Albumin 3.8 gm/dL (3.2-5.2); Albumin/Globulin Ratio 1.5 (1.0-2.3); Alkaline Phosphatase 78 U/L (39-117); Bilirubin,Direct < 0.2 mg/dL (0-0.3); Bilirubin,Total 0.5 mg/dL (0.1-1.0); Blood Urea Nitrogen 65 mg/dL (8-23); Calcium 9.4 mg/dL (8.6-10.4); Carbon Dioxide 18 mmol/L (22-30); Chloride 90 mmol/L (96-108); Globulin 2.6 gm/dL (2.2-3.7); Glomerular Filtration Rate 12; Glucose 637 mg/dL (70-105); Lactate Dehydrogenase 192 U/L (135-225); Phosphorous 2.7 mg/dL (2.5-4.5); Triglycerides 120 mg/dL (<150); Uric Acid 9.7 mg/dL (2.5-8.0)
[2022-01-10] MEDS ORDERED: HALOPERIDOL LACTATE 5 MG/ML VIAL ONE ×2 (00:14→04:04)
[2022-01-10] MEDS: HALOPERIDOL LACTATE 5 MG/ML VIAL IV PRN ×5 (00:14→20:29)
[2022-01-10] MEDS ORDERED: INSULIN REGULAR, HUMAN 1 UNIT/0.01 ML UNIT IV ONE (00:16)
[2022-01-10] MEDS ORDERED: INSULIN REGULAR, HUMAN 1 UNIT/0.01 ML UNIT ONE ×2 (00:25→21:31)
[2022-01-10] MEDS ORDERED: SODIUM BICARBONATE 50 MEQ/50 ML VIAL ONE (00:29)
[2022-01-10] MEDS ORDERED: LORazepam 2 MG/ML VIAL ONE (00:45)
[2022-01-10] MEDS: LORazepam 2 MG/ML VIAL IV PRN ×5 (00:48→22:31)
[2022-01-10] MEDS: SODIUM BICARBONATE VIAL 150 MEQ in WATER FOR INJECTION,STERILE 850 ML IV SCH (01:27)
[2022-01-10 02:05] LABS: ABG Methemoglobin 0.2 % (0.4-1.5); Total Hemoglobin 12.6 gm/Dl (12.0-15.0); VBG Base Excess -2 (-2-3); VBG HCO3 23.7 mmol/L (24.0-28.0); VBG Oxygen Saturation 75.6 % (40.0-70.0); VBG PH 7.37 U (7.32-7.42); VBG PO2 40.3 mmHg (25.0-40.0)
[2022-01-10 02:27] LABS: Albumin 3.6 gm/dL (3.2-5.2); Calcium 9.1 mg/dL (8.6-10.4)
[2022-01-10] MEDS: 0.9 % SODIUM CHLORIDE 10 ML SYRINGE IV SCH ×3 (06:06→20:43)
[2022-01-10 06:27] LABS: ABG Methemoglobin 0.2 % (0.4-1.5); Total Hemoglobin 13.1 gm/Dl (12.0-15.0); VBG Base Excess 1 (-2-3); VBG HCO3 24.6 mmol/L (24.0-28.0); VBG Oxygen Saturation 93.8 % (40.0-70.0); VBG PH 7.45 U (7.32-7.42); VBG PO2 109.7 mmHg (25.0-40.0); VBG Total CO2 25.7 mmol/L (25.0-29.0)
[2022-01-10 06:38] LABS: INR 1.4 (0.9-1.1); Prothrombin Time 17.4 sec (11.9-14.5)
[2022-01-10] MEDS ORDERED: LACTATED RINGERS 1,000 ML IV SCH (06:45)
[2022-01-10] MEDS ORDERED: 0.9 % SODIUM CHLORIDE 1,000 ML IV SCH (06:45)
[2022-01-10 07:19] LABS: Albumin 3.6 gm/dL (3.2-5.2); Blood Urea Nitrogen 63 mg/dL (8-23); Calcium 8.8 mg/dL (8.6-10.4); Carbon Dioxide 23 mmol/L (22-30); Chloride 96 mmol/L (96-108); Glomerular Filtration Rate 14; Glucose 330 mg/dL (70-105); Phosphorous 2.2 mg/dL (2.5-4.5)
[2022-01-10] MEDS ORDERED: DEXTROSE 5%-1/2NS W/20MEQ KCL 1,000 ML IV SCH (07:30)
[2022-01-10 08:02] LABS: Vancomycin,Random 12.8 ug/mL
--- NOTE | 2022-01-10 09:00 | Cat Scan Report ---
INDICATION: Change in mental status, recent fall. COMPARISON: None. TECHNIQUE: Axial noncontrast-enhanced images through the brain. Sagittally and coronally reformatted images. FINDINGS: Cerebral hemispheres:No intra-axial hematoma. There is age-appropriate cerebral atrophy. There is white matter abnormality consistent with small vessel ischemic change. 4 mm left thalamic lacunar infarction is nonacute. No acute intra-axial attenuation abnormalities or localized mass effect. Brainstem and cerebellum:No intra-axial abnormality Extra-axial:No acute hemorrhage. No subdural or epidural hematoma. No subarachnoid hemorrhage. Basilar cisterns are normal Calvarial:No calvarial fracture. No lytic lesion Temporal bones are negative. No destructive lesions Soft tissue, orbits, sinuses:Orbits and visualized facial soft tissues and paranasal sinuses are negative IMPRESSION: 1. Cerebral atrophy and white matter abnormality consistent with small vessel ischemic change 2. No acute intracranial hemorrhage. No acute abnormality. The exam was performed using radiation dose optimization techniques including, but not limited to, automated exposure control, adjustment of the mA and/or kV according to patient size and use of iterative reconstruction technique. Interpreted and Authenticated by: Darrell Wagner 01/10/22
[2022-01-10] MEDS: PANTOPRAZOLE 40 MG VIAL IV SCH ×2 (09:16→17:34)
[2022-01-10] MEDS: INSULIN REGULAR, HUMAN 50 UNIT in 0.9 % SODIUM CHLORIDE 99.5 ML IV SCH (09:20)
[2022-01-10] MEDS: CEFEPIME 2 GM VIAL IV SCH (09:26)
[2022-01-10 09:51] LABS: ABG Methemoglobin 0.1 % (0.4-1.5); Total Hemoglobin 13.9 gm/Dl (12.0-15.0); VBG Base Excess 1 (-2-3); VBG HCO3 26.8 mmol/L (24.0-28.0); VBG Oxygen Saturation 67.4 % (40.0-70.0); VBG PCO2 46.1 mmHg (41.0-51.0); VBG PH 7.38 U (7.32-7.42); VBG PO2 33.2 mmHg (25.0-40.0); VBG Total CO2 28.3 mmol/L (25.0-29.0)
[2022-01-10 10:23] LABS: Albumin 3.9 gm/dL (3.2-5.2); Blood Urea Nitrogen 59 mg/dL (8-23); Calcium 9.2 mg/dL (8.6-10.4); Carbon Dioxide 27 mmol/L (22-30); Chloride 95 mmol/L (96-108); Glomerular Filtration Rate 15; Glucose 206 mg/dL (70-105)
[2022-01-10] MEDS ORDERED: DEXTROSE 31 GM ORAL.SUSP PO PRN (10:55)
[2022-01-10] MEDS ORDERED: DEXTROSE 50% 50 ML VIAL IV PRN (10:55)
[2022-01-10] MEDS ORDERED: VANCOMYCIN 1,000 MG in 0.9 % SODIUM CHLORIDE 250 ML IV ONE (11:00)
[2022-01-10] MEDS: INSULIN GLARGINE, HUMAN 1 UNIT/0.01 ML SQ SCH (11:19)
[2022-01-10] MEDS: NOREPINEPHRINE BITARTRATE 16 MG in 0.9 % SODIUM CHLORIDE 234 ML IV SCH (11:59)
[2022-01-10] MEDS: INSULIN LISPRO 1 UNIT/0.01 ML UNIT SQ SCH ×4 (12:22→20:29)
[2022-01-10 14:34] LABS: ABG Methemoglobin 0.2 % (0.4-1.5); Total Hemoglobin 12.8 gm/Dl (12.0-15.0); VBG Base Excess 3 (-2-3); VBG HCO3 26.8 mmol/L (24.0-28.0); VBG PH 7.47 U (7.32-7.42); VBG PO2 73.8 mmHg (25.0-40.0)
--- NOTE | 2022-01-10 14:34 | Internal Med Progress Note ---
SUBJECTIVE Subjective Patient information: Note initiated : 01/10/22 at 2:34 pm Service Date, if different from initiated Date: [] Patient: Maribel Reaves 81 y/o F admitted on 01/09/22 for Low blood pressure, elevated blood sugar. Chief Complaint: [] Interval history: Ms. Reaves is a 81 year old male with a history of hypertension, hyperlipidemia, insulin-dependent type 2 diabetes mellitus, atrial fibrillation on Coumadin, left ventricular diastolic dysfunction, pulmonary hypertension, chronic kidney disease stage IV who presented to the emergency department via EMS after a syncopal event and coffee ground emesis. In the emergency department the patient was found to be in shock, diabetic ketoacidosis as well as a lactic acidosis complicated by an acute on chronic kidney disease injury. There is concern for septic shock, the patient was started on broad-spectrum antibiotics, IV fluid resuscitation, Levophed for vasopressor support, and insulin infusion for diabetic ketoacidosis as well as a bicarbonate IV infusion for severe metabolic acidosis. Sepsis work-up included a urinalysis which was not suggestive of a UTI, chest x-ray which was suggestive of pulmonary vascular congestion, a CT abdomen pelvis showed bibasilar pulmonary parenchymal infiltrates that could represent pulmonary edema or interstitial pneumonia, cardiomegaly, previous cholecystectomy with prominent common bile duct without intrahepatic duct dilation, a distended fluid-filled stomach otherwise no clear reported evidence of an infectious process. Blood cultures were drawn in the ED. The patient required an right IJ central line placement. CODE STATUS was reviewed with the patient, the patient wishes to be DNR/DNI but is okay with medical management i ncluding vasopressor medications for shock. Hospital medicine was consulted for admission. 01/10 The patient was agitated overnight, pulled out the right IJ central line. Haldol prn started for agitation. Diabetic ketoacidosis resolved, transitioned off insulin infusion to subcutaneous Lantus and sliding scale Humalog. Off Levophed. Encephalopathic, CT head ordered and did not show any acute changes. INR down to 1.4, hemoglobin trend has been stable. Making urine and renal function improving. The patient has improved clinical but overall prognosis is still guarded, updated family and friends at the bedside. Physical exam Head: Atraumatic, normal inspection. Eyes: normal appearance, no scleral icterus. Neck: Right IJ central line, full ROM Respiratory: no respiratory distress. Cardiovascular: normal rate and rhythm, S1, S2. GI/Abdominal: soft, nontender, no guarding. Extremities: 1+ bilateral pitting edema. Neurological: CN II-XII intact, intact motor, intact sensation. Psychiatric: Withdrawn, impaired short-term memory. Skin: warm, normal color Constitutional Vitals: Vital Signs Temp Pulse Resp BP Pulse Ox 98.1 F 89 18 86/55 95 01/10/22 12:02 01/10/22 13:01 01/10/22 14:10 01/10/22 14:10 01/10/22 13:01 Period Temp Pulse Resp BP Sys/Simpson Pulse Ox Last 24 Hr 97.2 F-98.1 F 62-181 14-31 86-154/49-116 87-100 Intake and Output 01/10/22 01/10/22 01/10/22 05:59 13:59 21:59 Intake Total 568 1377 Output Total 1090 335 115 Balance -522 1042 -115 Weight 100.017 kg Patient Weight 01/11/22 05:59 Weight 100.017 kg Intake & Output: Intake & Output 01/10/22 01/10/22 01/10/22 05:59 13:59 21:59 Intake Total 568 1377 Output Total 1090 335 115 Balance -522 1042 -115 Weight 100.017 kg Intake: IV 568 1377 Sodium Chloride 0.9% 250 ml @ 500 20 mls/hr IV .[id number] [facility] Rx#: [id number] HumuLIN R 50 UNIT In Sodium 52 76 Chloride 0.9% 99.5 ml @ 7 UNIT/ HR 14 mls/hr IV DUR TAY Rx#: [id number] Levophed 16 mg In Sodium 23 13 Chloride 0.9% 234 ml @ 10 MCG/ MIN 9.375 mls/hr IV Q24H [facility] Rx #:[id number] Potassium Chloride 20 Meq In 65 Dextrose 5% in Water 100 ml @ 55 mls/hr IV ONCE ONE Rx#: [id number] Sodium Bicarbonate Vial 150 Meq 428 538 In Water 850 ml @ 100 mls/hr IV Q10H [facility] Rx#:[id number] Vancomycin 1,000 mg In Sodium 250 Chloride 0.9% 250 ml @ 250 mls/ hr IV ONCE ONE Rx#:[id number] Output: Urine Catheter Amount 1050 335 115 Void Amount 40 Other: Urine Appearance Clear Clear Clear Urine Color Bright Yellow Light Siri Bright Yellow Urine Odor Normal OBJ DATA Labs CBC & Chem 7: 01/10/22 09:30 01/10/22 09:30 Labs: Abnormal Lab Results 01/10/22 01/10/22 01/10/22 09:30 09:30 06:10 WBC POC Hct MCV MCHC Plt Count MPV Neut % (Auto) Lymph % (Auto) Lymph # (Auto) Absolute Neutrophils PT INR APTT ABG Methemoglobin 0.1 L 0.2 L VBG pH 7.45 H VBG pCO2 36.0 L VBG pO2 109.7 H VBG HCO3 VBG Total CO2 VBG O2 Saturation 93.8 H VBG Base Excess VBG Lactic Acid Carboxyhemoglobin 3.9 H 4.0 H POC Sodium Sodium POC Potassium Potassium POC Chloride Chloride 95 L Carbon Dioxide POC Total CO2 Anion Gap POC BUN BUN 59 H Creatinine 2.8 H POC Creatinine Glucose 206 H POC Glucose Uric Acid POC WB Ioniz Calcium Phosphorus 2.0 L Troponin T Urine Appearance Urine Glucose (UA) Urine Ketones Hyaline Casts Urine Mucus 01/10/22 01/10/22 01/10/22 06:10 06:09 01:42 WBC POC Hct MCV MCHC Plt Count MPV Neut % (Auto) Lymph % (Auto) Lymph # (Auto) Absolute Neutrophils PT 17.4 H INR 1.4 H APTT ABG Methemoglobin 0.2 L VBG pH VBG pCO2 VBG pO2 40.3 H VBG HCO3 23.7 L VBG Total CO2 VBG O2 Saturation 75.6 H VBG Base Excess VBG Lactic Acid Carboxyhemoglobin 3.5 H POC Sodium Sodium POC Potassium Potassium POC Chloride Chloride Carbon Dioxide POC Total CO2 Anion Gap POC BUN BUN 63 H Creatinine 3.0 H POC Creatinine Glucose 330 H POC Glucose Uric Acid POC WB Ioniz Calcium Phosphorus 2.2 L Troponin T Urine Appearance Urine Glucose (UA) Urine Ketones Hyaline Casts Urine Mucus 01/10/22 01/09/22 01/09/22 01:42 22:17 22:17 WBC POC Hct MCV MCHC Plt Count MPV Neut % (Auto) Lymph % (Auto) Lymph # (Auto) Absolute Neutrophils PT INR APTT ABG Methemoglobin 0.2 L VBG pH VBG pCO2 32.1 L VBG pO2 VBG HCO3 16.6 L VBG Total CO2 17.6 L VBG O2 Saturation 72.9 H VBG Base Excess -8 L VBG Lactic Acid Carboxyhemoglobin 5.3 H POC Sodium 131 L Sodium 132 L POC Potassium Potassium POC Chloride Chloride 91 L Carbon Dioxide POC Total CO2 20 L Anion Gap 18.0 H POC BUN 61 H BUN 69 H Creatinine 3.2 H POC Creatinine 3.5 H Glucose 404 H POC Glucose 610 H* Uric Acid POC WB Ioniz Calcium 1.14 L Phosphorus 2.0 L Troponin T Urine Appearance Urine Glucose (UA) Urine Ketones Hyaline Casts Urine Mucus 01/09/22 01/09/22 01/09/22 22:17 22:17 19:55 WBC POC Hct MCV MCHC Plt Count MPV Neut % (Auto) Lymph % (Auto) Lymph # (Auto) Absolute Neutrophils PT INR APTT ABG Methemoglobin VBG pH VBG pCO2 VBG pO2 VBG HCO3 VBG Total CO2 VBG O2 Saturation VBG Base Excess VBG Lactic Acid 4.5 H* Carboxyhemoglobin POC Sodium 130 L Sodium POC Potassium Potassium POC Chloride Chloride 90 L Carbon Dioxide 18 L POC Total CO2 16 L Anion Gap 25.0 H POC BUN 61 H BUN 65 H Creatinine 3.4 H POC Creatinine 3.5 H Glucose 637 H* POC Glucose 658 H* Uric Acid 9.7 H POC WB Ioniz Calcium 1.14 L Phosphorus Troponin T Urine Appearance Urine Glucose (UA) Urine Ketones Hyaline Casts Urine Mucus 01/09/22 01/09/22 01/09/22 18:01 17:49 16:30 WBC POC Hct 35 L MCV MCHC Plt Count MPV Neut % (Auto) Lymph % (Auto) Lymph # (Auto) Absolute Neutrophils PT INR APTT ABG Methemoglobin VBG pH VBG pCO2 VBG pO2 VBG HCO3 VBG Total CO2 VBG O2 Saturation VBG Base Excess VBG Lactic Acid Carboxyhemoglobin POC Sodium 128 L Sodium 125 L POC Potassium Potassium POC Chloride Chloride 86 L Carbon Dioxide 11 L POC Total CO2 14 L Anion Gap 28.0 H POC BUN 60 H BUN 65 H Creatinine 3.6 H POC Creatinine 3.4 H Glucose 801 H* POC Glucose > 700 H* Uric Acid POC WB Ioniz Calcium 1.09 L Phosphorus Troponin T Urine Appearance Hazy A Urine Glucose (UA) >=500 A Urine Ketones 20 A Hyaline Casts 7 H Urine Mucus Few A 01/09/22 01/09/22 01/09/22 15:43 14:46 13:53 WBC POC Hct MCV MCHC Plt Count MPV Neut % (Auto) Lymph % (Auto) Lymph # (Auto) Absolute Neutrophils PT INR APTT ABG Methemoglobin VBG pH VBG pCO2 VBG pO2 VBG HCO3 VBG Total CO2 VBG O2 Saturation VBG Base Excess VBG Lactic Acid Carboxyhemoglobin POC Sodium 126 L Sodium 125 L 123 L 123 L POC Potassium 5.2 H Potassium 5.2 H POC Chloride 95 L Chloride 83 L 82 L 81 L Carbon Dioxide 11 L 8 L* 7 L* POC Total CO2 11 L Anion Gap 31.0 H 33.0 H 35.0 H POC BUN 63 H BUN 64 H 64 H 62 H Creatinine 3.5 H 3.7 H 3.6 H POC Creatinine 3.4 H Glucose 921 H* 1001 H* 1003 H* POC Glucose > 700 H* Uric Acid POC WB Ioniz Calcium 1.15 L Phosphorus Troponin T Urine Appearance Urine Glucose (UA) Urine Ketones Hyaline Casts Urine Mucus 01/09/22 01/09/22 01/09/22 12:54 12:54 09:49 WBC POC Hct MCV MCHC Plt Count MPV Neut % (Auto) Lymph % (Auto) Lymph # (Auto) Absolute Neutrophils PT INR APTT ABG Methemoglobin VBG pH VBG pCO2 VBG pO2 VBG HCO3 VBG Total CO2 VBG O2 Saturation VBG Base Excess VBG Lactic Acid 4.4 H* 4.1 H* Carboxyhemoglobin POC Sodium Sodium 125 L POC Potassium Potassium 5.9 H* POC Chloride Chloride 81 L Carbon Dioxide 7 L* POC Total CO2 Anion Gap 37.0 H POC BUN BUN 65 H Creatinine 3.6 H POC Creatinine Glucose 1094 H* POC Glucose Uric Acid POC WB Ioniz Calcium Phosphorus Troponin T Urine Appearance Urine Glucose (UA) Urine Ketones Hyaline Casts Urine Mucus 01/09/22 01/09/22 01/09/22 09:35 09:35 09:35 WBC POC Hct MCV MCHC Plt Count MPV Neut % (Auto) Lymph % (Auto) Lymph # (Auto) Absolute Neutrophils PT INR APTT 43.7 H ABG Methemoglobin VBG pH VBG pCO2 VBG pO2 VBG HCO3 VBG Total CO2 VBG O2 Saturation VBG Base Excess VBG Lactic Acid Carboxyhemoglobin POC Sodium 118 L* Sodium 116 L* POC Potassium 6.6 H* Potassium 6.6 H* POC Chloride 89 L Chloride 73 L Carbon Dioxide 6 L* POC Total CO2 9 L* Anion Gap 37.0 H POC BUN 57 H BUN 67 H Creatinine 3.8 H POC Creatinine 3.7 H Glucose 1253 H* POC Glucose > 700 H* Uric Acid POC WB Ioniz Calcium 1.04 L Phosphorus Troponin T 0.03 H Urine Appearance Urine Glucose (UA) Urine Ketones Hyaline Casts Urine Mucus 01/09/22 09:35 WBC 14.2 H POC Hct MCV 107.2 H MCHC 30.0 L Plt Count 107 L MPV 13.3 H Neut % (Auto) 90.8 H Lymph % (Auto) 5.5 L Lymph # (Auto) 0.78 L Absolute Neutrophils 12.84 H PT INR APTT ABG Methemoglobin VBG pH VBG pCO2 VBG pO2 VBG HCO3 VBG Total CO2 VBG O2 Saturation VBG Base Excess VBG Lactic Acid Carboxyhemoglobin POC Sodium Sodium POC Potassium Potassium POC Chloride Chloride Carbon Dioxide POC Total CO2 Anion Gap POC BUN BUN Creatinine POC Creatinine Glucose POC Glucose Uric Acid POC WB Ioniz Calcium Phosphorus Troponin T Urine Appearance Urine Glucose (UA) Urine Ketones Hyaline Casts Urine Mucus Meds: Medications Cefepime HCl (Cefepime 2 Gm Vial) 2 gm IV Q24H [facility]; Protocol Last Admin: 01/10/22 09:26 Dose: 2 gm Documented by: Dextrose (Dextrose 50% 50 Ml Vial) 0 ml IV UD PRN PRN Reason: Per Sliding Scale Diagnostic Test (Pha) (Accu-Chek 1 Each Strip) 1 each FS Q1 [facility] Last Admin: 01/10/22 14:01 Dose: 1 each Documented by: Diagnostic Test (Pha) (Accu-Chek 1 Each Strip) 1 each FS ACHS [facility] Last Admin: 01/10/22 12:20 Dose: Not Given Documented by: Glucose (Dextrose 31 Gm Oral.Susp) 15 gm PO PRN PRN PRN Reason: Hypoglycemia Haloperidol Lactate (Haloperidol Lactate 5 Mg/Ml Vial) 2 mg IV Q4HP PRN PRN Reason: Agitation Last Admin: 01/10/22 07:58 Dose: 2 mg Documented by: Insulin Human Regular 50 unit/ (Sodium Chloride) 100 mls @ 14 mls/hr IV DUR [facility]; Protocol Last Titration: 01/10/22 12:20 Dose: 0 unit/hr, 0 mls/hr Documented by: Norepinephrine Bitartrate 16 (mg/ Sodium Chloride) 250 mls @ 9.375 mls/hr IV Q24H [facility]; Protocol Last Admin: 01/10/22 11:59 Dose: Not Given Documented by: Insulin Glargine (Insulin Glargine, Human 1 Unit/0.01 Ml) 15 unit SQ DAILY [facility] Last Admin: 01/10/22 11:19 Dose: 15 units Documented by: Insulin Human Lispro (Insulin Lispro 1 Unit/0.01 Ml Unit) 0 unit SQ ACHS [facility]; Protocol Last Admin: 01/10/22 12:26 Dose: 3 unit Documented by: Lorazepam (Lorazepam 2 Mg/Ml Vial) 0.5 mg IV Q2HP PRN PRN Reason: Agitation Last Admin: 01/10/22 08:22 Dose: 0.5 mg Documented by: Pantoprazole Sodium (Pantoprazole 40 Mg Vial) 40 mg IV BIDAC [facility] Last Admin: 01/10/22 09:16 Dose: 40 mg Documented by: Sodium Chloride (0.9 % Sodium Chloride 10 Ml Syringe) 10 ml IV Q8 [facility] Last Admin: 01/10/22 06:06 Dose: 10 ml Documented by: Vancomycin HCl (Vancomycin Per Pharmacy) 1 order IV UD [facility]; Protocol ABG Interpretation ABG results: 01/09/22 01/10/22 01/10/22 22:17 01:42 06:10 ABG Methemoglobin 0.2 L 0.2 L 0.2 L VBG pH 7.33 7.37 7.45 H VBG pCO2 32.1 L 42.0 36.0 L VBG pO2 37.8 40.3 H 109.7 H VBG HCO3 16.6 L 23.7 L 24.6 VBG Total CO2 17.6 L 25.0 25.7 VBG O2 Saturation 72.9 H 75.6 H 93.8 H VBG Base Excess -8 L -2 1 01/10/22 09:30 ABG Methemoglobin 0.1 L VBG pH 7.38 VBG pCO2 46.1 VBG pO2 33.2 VBG HCO3 26.8 VBG Total CO2 28.3 VBG O2 Saturation 67.4 VBG Base Excess 1 A/P Narrative A/P Narrative: Assessment: 81 year old male with a history of hypertension, hyperlipidemia, insulin-dependent type 2 diabetes mellitus, atrial fibrillation on Coumadin, left ventricular diastolic dysfunction, pulmonary hypertension, chronic kidney disease stage IV who presented to the emergency department via EMS after a syncopal event and coffee ground emesis. In the emergency department, the patient was found to be hypotensive requiring vasopressor support and large amount of IV fluid. There is concern the patient has septic shock as her lactic acid was elevated at 4.4. The patient was also found to be in diabetic ketoacidosis. The patient received IV Vitamin K in the ED. #Encephalopathy likely due to delirium #Resolved undifferentiated shock, possibly due to sepsis #Lactic acidosis #Resolved diabetic ketoacidosis #Improving acute on chronic kidney disease IV injury #Concern for coffee ground emesis prior to admission #Syncopal episode. #Atrial fibrillation previously on Coumadin (reversed with IV vitamin K) #Type 2 diabetes mellitus #Essential hypertension #Hyperlipidemia #Obesity BMI 33 #Guarded prognosis Plan -Vancomycin and cefepime IV for now. -Levophed prn for hypotension -Holding IV fluid now due to concern for volume overload. -Follow lactic acid until downtrending. -Follow blood cultures. -Lantus and correction insulin SSI-high. -Monitor hemoglobin. -Holding Coumadin. -Protonix IV twice daily for concern of GI bleed. -Follow renal function and urine output, avoid nephrotoxic meds. -Haldol IV prn for agitation. -CT head ordered for encephalopathy and recent syncope on Coumadin-negative for acute changes. -Hold home Coreg, losartan, hydrochlorothiazide, triamterene. -Consider NG tube for suctioning if the patient develops emesis. -N.p.o. for now. -compliance monitor. -DVT prophylaxis: SCD due to concern for GI bleed. -CODE STATUS: DNR/DNI -Disposition: TBD Time Spent With Patient Time: Total time spent is greater than 50% in coordination of care (as documented) at patient's floor/unit and/or counseling patient:
[2022-01-10 15:01] LABS: Albumin 3.7 gm/dL (3.2-5.2); Phosphorous 1.4 mg/dL (2.5-4.5)
[2022-01-10] MEDS ORDERED: POTASSIUM PHOSPHATE 40 MEQ in DEXTROSE 5% IN WATER 500 ML IV ONE (15:30)
[2022-01-10 17:59] LABS: ABG Methemoglobin 0.3 % (0.4-1.5); Total Hemoglobin 13.2 gm/Dl (12.0-15.0); VBG Base Excess 0 (-2-3); VBG HCO3 24.4 mmol/L (24.0-28.0); VBG Oxygen Saturation 68.6 % (40.0-70.0); VBG PCO2 40.5 mmHg (41.0-51.0); VBG PO2 36.3 mmHg (25.0-40.0); VBG Total CO2 25.6 mmol/L (25.0-29.0)
[2022-01-10 18:25] LABS: Albumin 3.7 gm/dL (3.2-5.2); Phosphorous 2.8 mg/dL (2.5-4.5)
--- NOTE | 2022-01-10 20:14 | XRay Report ---
INDICATION: tachypnea, concern for CHF after IV fluid TECHNIQUE: AP supine chest x-ray COMPARISON: Previous examination dated 01/09/2022 FINDINGS: There is cardiomegaly. Pulmonary vascularity is prominent. There is septal lines and peribronchial thickening consistent with interstitial pulmonary edema. Findings are worse than on previous examination. No focal consolidation IMPRESSION: 1. Cardiomegaly 2. Findings consistent with pulmonary edema, increased since 01/09/2022 Interpreted and Authenticated by: Darrell Wagner 01/10/22
[2022-01-10 20:17] LABS: ABG Methemoglobin 0.3 % (0.4-1.5); Total Hemoglobin 12.9 gm/Dl (12.0-15.0); VBG Base Excess 0 (-2-3); VBG HCO3 23.3 mmol/L (24.0-28.0); VBG Oxygen Saturation 92.8 % (40.0-70.0); VBG PCO2 33.1 mmHg (41.0-51.0); VBG PH 7.47 U (7.32-7.42); VBG PO2 94.4 mmHg (25.0-40.0); VBG Total CO2 24.3 mmol/L (25.0-29.0)
[2022-01-10 20:40] LABS: Albumin 3.4 gm/dL (3.2-5.2); Calcium 8.8 mg/dL (8.6-10.4); Phosphorous 3.1 mg/dL (2.5-4.5)
[2022-01-10] MEDS ORDERED: FUROSEMIDE 100 MG/10 ML VIAL IV ONE (21:17)
[2022-01-10] MEDS ORDERED: INSULIN REGULAR, HUMAN 50 UNIT in 0.9 % SODIUM CHLORIDE 99.5 ML IV SCH (21:30)
[2022-01-11] MEDS ORDERED: DEXTROSE 50% 50 ML SYRINGE IV ONE (00:10)
[2022-01-11] MEDS ORDERED: DEXTROSE 50% 50 ML VIAL IV ONE (00:11)
[2022-01-11] MEDS: HALOPERIDOL LACTATE 5 MG/ML VIAL IV PRN ×2 (01:00→21:12)
[2022-01-11 01:56] LABS: Albumin 3.3 gm/dL (3.2-5.2); Blood Urea Nitrogen 52 mg/dL (8-23); Calcium 8.8 mg/dL (8.6-10.4); Carbon Dioxide 26 mmol/L (22-30); Chloride 96 mmol/L (96-108); Glomerular Filtration Rate 17; Glucose 161 mg/dL (70-105); Phosphorous 2.3 mg/dL (2.5-4.5)
[2022-01-11] MEDS ORDERED: FUROSEMIDE 40 MG/4 ML VIAL IV ONE ×2 (05:38→05:55)
[2022-01-11] MEDS: 0.9 % SODIUM CHLORIDE 10 ML SYRINGE IV SCH ×3 (06:06→21:15)
[2022-01-11 07:17] LABS: Basophils # (Auto) 0.02 K/mcL (0.00-0.30); Basophils % (Auto) 0.2 % (0.0-2.0); Eosinophils # (Auto) 0.01 K/mcL (0.00-0.70); Eosinophils % (Auto) 0.1 % (0.0-7.0); Hematocrit 33.4 % (34.1-44.9); Lymphocytes % (Auto) 10.8 % (15.5-49.0); Mean Cell Volume 96.5 fL (80.0-100.0); Mean Corpuscular HGB Conc 32.9 g/dL (31.0-36.0); Mean Platelet Volume 11.9 fL (7.4-10.4); Monocytes # (Auto) 1.13 K/mcL (0.10-0.90); Monocytes % (Auto) 9.4 % (1.0-12.0); Neutrophils % (Auto) 79.5 % (38.0-78.0); Platelet Count 71 K/mcL (140-440); RBC 3.46 M/mcL (3.59-5.38); Red Cell Distribution Width 13.4 % (11.5-14.5); WBC 12.1 K/mcL (4.5-11.0)
[2022-01-11 07:38] LABS: ALT/SGPT 13 U/L (<40); AST/SGOT 30 U/L (<32); Albumin/Globulin Ratio 1.4 (1.0-2.3); Alkaline Phosphatase 62 U/L (39-117); Bilirubin,Direct 0.2 mg/dL (<0.3); Bilirubin,Total 0.6 mg/dL (0.1-1.0); Blood Urea Nitrogen 48 mg/dL (8-23); Calcium 8.5 mg/dL (8.6-10.4); Carbon Dioxide 27 mmol/L (22-30); Chloride 97 mmol/L (96-108); Globulin 2.1 gm/dL (2.2-3.7); Glomerular Filtration Rate 21; Glucose 161 mg/dL (70-105); Lactate Dehydrogenase 277 U/L (135-225); Phosphorous 2.6 mg/dL (2.5-4.5); Triglycerides 107 mg/dL (<150); Uric Acid 7.6 mg/dL (2.5-8.0)
[2022-01-11] MEDS: PANTOPRAZOLE 40 MG VIAL IV SCH ×2 (07:53→17:08)
[2022-01-11] MEDS ORDERED: POTASSIUM CHLORIDE 40 MEQ in DEXTROSE 5% IN WATER 500 ML IV ONE (08:00)
[2022-01-11 08:36] LABS: Vancomycin,Random 14.5 ug/mL
[2022-01-11] MEDS ORDERED: VANCOMYCIN 1,000 MG in 0.9 % SODIUM CHLORIDE 250 ML IV ONE (09:00)
[2022-01-11] MEDS: CEFEPIME 2 GM VIAL IV SCH (09:29)
[2022-01-11] MEDS ORDERED: DEXTROSE 31 GM ORAL.SUSP PO PRN (09:42)
[2022-01-11] MEDS ORDERED: DEXTROSE 50% 50 ML VIAL IV PRN (09:42)
--- NOTE | 2022-01-11 10:40 | Internal Med Progress Note ---
SUBJECTIVE Subjective Patient information: Note initiated : 01/11/22 at 10:37 am Service Date, if different from initiated Date: [] Patient: Maribel Reaves 81 y/o F admitted on 01/09/22 for Low blood pressure, elevated blood sugar. Chief Complaint: [] Interval history: Ms. Reaves is a 81 year old male with a history of hypertension, hyperlipidemia, insulin-dependent type 2 diabetes mellitus, atrial fibrillation on Coumadin, left ventricular diastolic dysfunction, pulmonary hypertension, chronic kidney disease stage IV who presented to the emergency department via EMS after a syncopal event and coffee ground emesis. In the emergency department the patient was found to be in shock, diabetic ketoacidosis as well as a lactic acidosis complicated by an acute on chronic kidney disease injury. There is concern for septic shock, the patient was started on broad-spectrum antibiotics, IV fluid resuscitation, Levophed for vasopressor support, and insulin infusion for diabetic ketoacidosis as well as a bicarbonate IV infusion for severe metabolic acidosis. Sepsis work-up included a urinalysis which was not suggestive of a UTI, chest x-ray which was suggestive of pulmonary vascular congestion, a CT abdomen pelvis showed bibasilar pulmonary parenchymal infiltrates that could represent pulmonary edema or interstitial pneumonia, cardiomegaly, previous cholecystectomy with prominent common bile duct without intrahepatic duct dilation, a distended fluid-filled stomach otherwise no clear reported evidence of an infectious process. Blood cultures were drawn in the ED. The patient required an right IJ central line placement. CODE STATUS was reviewed with the patient, the patient wishes to be DNR/DNI but is okay with medical management including vasopressor medications for shock. Hospital medicine was consulted for admission. 01/10 The patient was agitated overnight, pulled out the right IJ central line. Haldol prn started for agitation. Diabetic ketoacidosis resolved, transitioned off insulin infusion to subcutaneous Lantus and sliding scale Humalog. Off Levophed in the morning but was restarted for hypotension while the patient was sleeping. The patient is encephalopathic, CT head ordered and did not show any acute changes. INR down to 1.4, hemoglobin trend has been stable. Making urine and renal function improving. The patient has improved clinical but overall prognosis is still guarded, updated family and friends at the bedside. Overnight, the patient developed a anion gap and an insulin infusion was restarted. 01/11 Weaned off of Levophed, blood sugar stable on insulin infusion. Blood cultures showing no growth to date. Lactic acid decreased to 2.7. Continues on vancomycin and cefepime, renal function continues to improve. Chest x-ray showed pulmonary vascular congestion. 40 mg IV once given. Transthoracic echocardiogram ordered. Transition back to subcutaneous basal bolus insulin. Physical exam Head: Atraumatic, normal inspection. Eyes: normal appearance, no scleral icterus. Neck: Bandage over recent right IJ central line site,full ROM Respiratory: Nasal cannula oxygen, no respiratory distress. Cardiovascular: normal rate and rhythm, S1, S2. GI/Abdominal: soft, nontender, no guarding. Extremities: 1+ bilateral pitting edema. Neurological: CN II-XII intact, intact motor, intact sensation. Psychiatric: Withdrawn, impaired short-term memory. Skin: warm, normal color Constitutional Vitals: Vital Signs Temp Pulse Resp BP Pulse Ox 96.9 F L 84 24 H 104/77 99 01/11/22 08:01 01/11/22 10:06 01/11/22 10:06 01/11/22 09:33 01/11/22 10:06 Period Temp Pulse Resp BP Sys/Simpson Pulse Ox Last 24 Hr 96.9 F-98.7 F 31-181 16-58 74-182/49-120 84-100 Intake and Output 01/10/22 01/11/22 01/11/22 21:59 05:59 13:59 Intake Total 1039.0909 18 Output Total 631 558 8669 Balance 640.0909 -487 -2937 Weight 101.786 kg Intake & Output: Intake & Output 01/10/22 01/11/22 01/11/22 21:59 05:59 13:59 Intake Total 1039.0909 18 Output Total 835 499 6541 Balance 640.0909 -487 -2937 Weight 101.786 kg Intake: IV 1039.0909 18 Dextrose 5%-1/2Ns W/20Meq KCl 1 524 ,000 ml @ 75 mls/hr IV .[id number] [facility] Rx#:[id number] HumuLIN R 50 UNIT In Sodium 0 18 Chloride 0.9% 99.5 ml @ Per Protocol IV DUR [facility] Rx#: [id number] Levophed 16 mg In Sodium 6 Chloride 0.9% 234 ml @ 10 MCG/ MIN 9.375 mls/hr IV Q24H [facility] Rx #:[id number] Potassium Phosphate 40 Meq In 509.0909 Dextrose 5% in Water 500 ml @ 127.273 mls/hr IV ONCE ONE Rx#: [id number] Output: Urine Catheter Amount [phone] Other: Urine Appearance Cloudy Cloudy Clear Uretheral (Hanks) Cloudy Cloudy Clear Urine Color Dark Yellow Dark Yellow Bright Yellow Uretheral (Hanks) Dark Yellow Dark Yellow Pale Urine Odor Normal Normal OBJ DATA Labs CBC & Chem 7: 01/11/22 05:34 01/11/22 05:34 Labs: Abnormal Lab Results 01/11/22 01/11/22 01/11/22 05:34 05:34 01:12 WBC 12.1 H RBC 3.46 L Hgb 11.0 L Hct 33.4 L POC Hct MCV MCHC Plt Count 71 L MPV 11.9 H Neut % (Auto) 79.5 H Lymph % (Auto) 10.8 L Lymph # (Auto) 1.30 L [place] # (Auto) 1.13 H Absolute Neutrophils 9.62 H PT INR APTT ABG Methemoglobin VBG pH VBG pCO2 VBG pO2 VBG HCO3 VBG Total CO2 VBG O2 Saturation VBG Base Excess VBG Lactic Acid 2.7 H Carboxyhemoglobin POC Sodium Sodium POC Potassium Potassium POC Chloride Chloride Carbon Dioxide POC Total CO2 Anion Gap POC BUN BUN 48 H Creatinine 2.1 H POC Creatinine Glucose 161 H POC Glucose Uric Acid Calcium 8.5 L POC WB Ioniz Calcium Phosphorus Lactate Dehydrogenase 277 H Troponin T Total Protein 5.1 L Albumin 3.0 L Globulin 2.1 L Urine Appearance Urine Glucose (UA) Urine Ketones Hyaline Casts Urine Mucus 01/11/22 01/10/22 01/10/22 01:12 20:04 19:54 WBC RBC Hgb Hct POC Hct MCV MCHC Plt Count MPV Neut % (Auto) Lymph % (Auto) Lymph # (Auto) [place] # (Auto) Absolute Neutrophils PT INR APTT ABG Methemoglobin 0.3 L VBG pH 7.47 H VBG pCO2 33.1 L VBG pO2 94.4 H VBG HCO3 23.3 L VBG Total CO2 24.3 L VBG O2 Saturation 92.8 H VBG Base Excess VBG Lactic Acid 4.2 H* Carboxyhemoglobin 4.5 H POC Sodium Sodium POC Potassium Potassium 3.2 L POC Chloride Chloride Carbon Dioxide POC Total CO2 Anion Gap POC BUN BUN 52 H Creatinine 2.5 H POC Creatinine Glucose 161 H POC Glucose Uric Acid Calcium POC WB Ioniz Calcium Phosphorus 2.3 L Lactate Dehydrogenase Troponin T Total Protein Albumin Globulin Urine Appearance Urine Glucose (UA) Urine Ketones Hyaline Casts Urine Mucus 01/10/22 01/10/22 01/10/22 19:54 17:38 17:38 WBC RBC Hgb Hct POC Hct MCV MCHC Plt Count MPV Neut % (Auto) Lymph % (Auto) Lymph # (Auto) [place] # (Auto) Absolute Neutrophils PT INR APTT ABG Methemoglobin 0.3 L VBG pH VBG pCO2 40.5 L VBG pO2 VBG HCO3 VBG Total CO2 VBG O2 Saturation VBG Base Excess VBG Lactic Acid Carboxyhemoglobin POC Sodium Sodium 132 L POC Potassium Potassium POC Chloride Chloride 93 L 93 L Carbon Dioxide POC Total CO2 Anion Gap 17.0 H 18.0 H POC BUN BUN 56 H 56 H Creatinine 2.6 H 2.5 H POC Creatinine Glucose 271 H 303 H POC Glucose Uric Acid Calcium POC WB Ioniz Calcium Phosphorus Lactate Dehydrogenase Troponin T Total Protein Albumin Globulin Urine Appearance Urine Glucose (UA) Urine Ketones Hyaline Casts Urine Mucus 01/10/22 01/10/22 01/10/22 14:11 14:11 14:09 WBC RBC Hgb Hct POC Hct MCV MCHC Plt Count MPV Neut % (Auto) Lymph % (Auto) Lymph # (Auto) [place] # (Auto) Absolute Neutrophils PT INR APTT ABG Methemoglobin 0.2 L VBG pH 7.47 H VBG pCO2 38.0 L VBG pO2 73.8 H VBG HCO3 VBG Total CO2 VBG O2 Saturation 91.0 H VBG Base Excess VBG Lactic Acid 4.0 H* Carboxyhemoglobin 4.9 H POC Sodium Sodium POC Potassium Potassium POC Chloride Chloride 95 L Carbon Dioxide POC Total CO2 Anion Gap POC BUN BUN 59 H Creatinine 2.6 H POC Creatinine Glucose 176 H POC Glucose Uric Acid Calcium POC WB Ioniz Calcium Phosphorus 1.4 L Lactate Dehydrogenase Troponin T Total Protein Albumin Globulin Urine Appearance Urine Glucose (UA) Urine Ketones Hyaline Casts Urine Mucus 01/10/22 01/10/22 01/10/22 09:30 09:30 06:10 WBC RBC Hgb Hct POC Hct MCV MCHC Plt Count MPV Neut % (Auto) Lymph % (Auto) Lymph # (Auto) [place] # (Auto) Absolute Neutrophils PT INR APTT ABG Methemoglobin 0.1 L 0.2 L VBG pH 7.45 H VBG pCO2 36.0 L VBG pO2 109.7 H VBG HCO3 VBG Total CO2 VBG O2 Saturation 93.8 H VBG Base Excess VBG Lactic Acid Carboxyhemoglobin 3.9 H 4.0 H POC Sodium Sodium POC Potassium Potassium POC Chloride Chloride 95 L Carbon Dioxide POC Total CO2 Anion Gap POC BUN BUN 59 H Creatinine 2.8 H POC Creatinine Glucose 206 H POC Glucose Uric Acid Calcium POC WB Ioniz Calcium Phosphorus 2.0 L Lactate Dehydrogenase Troponin T Total Protein Albumin Globulin Urine Appearance Urine Glucose (UA) Urine Ketones Hyaline Casts Urine Mucus 01/10/22 01/10/22 01/10/22 06:10 06:09 01:42 WBC RBC Hgb Hct POC Hct MCV MCHC Plt Count MPV Neut % (Auto) Lymph % (Auto) Lymph # (Auto) [place] # (Auto) Absolute Neutrophils PT 17.4 H INR 1.4 H APTT ABG Methemoglobin 0.2 L VBG pH VBG pCO2 VBG pO2 40.3 H VBG HCO3 23.7 L VBG Total CO2 VBG O2 Saturation 75.6 H VBG Base Excess VBG Lactic Acid Carboxyhemoglobin 3.5 H POC Sodium Sodium POC Potassium Potassium POC Chloride Chloride Carbon Dioxide POC Total CO2 Anion Gap POC BUN BUN 63 H Creatinine 3.0 H POC Creatinine Glucose 330 H POC Glucose Uric Acid Calcium POC WB Ioniz Calcium Phosphorus 2.2 L Lactate Dehydrogenase Troponin T Total Protein Albumin Globulin Urine Appearance Urine Glucose (UA) Urine Ketones Hyaline Casts Urine Mucus 01/10/22 01/09/22 01/09/22 01:42 22:17 22:17 WBC RBC Hgb Hct POC Hct MCV MCHC Plt Count MPV Neut % (Auto) Lymph % (Auto) Lymph # (Auto) [place] # (Auto) Absolute Neutrophils PT INR APTT ABG Methemoglobin 0.2 L VBG pH VBG pCO2 32.1 L VBG pO2 VBG HCO3 16.6 L VBG Total CO2 17.6 L VBG O2 Saturation 72.9 H VBG Base Excess -8 L VBG Lactic Acid Carboxyhemoglobin 5.3 H POC Sodium 131 L Sodium 132 L POC Potassium Potassium POC Chloride Chloride 91 L Carbon Dioxide POC Total CO2 20 L Anion Gap 18.0 H POC BUN 61 H BUN 69 H Creatinine 3.2 H POC Creatinine 3.5 H Glucose 404 H POC Glucose 610 H* Uric Acid Calcium POC WB Ioniz Calcium 1.14 L Phosphorus 2.0 L Lactate Dehydrogenase Troponin T Total Protein Albumin Globulin Urine Appearance Urine Glucose (UA) Urine Ketones Hyaline Casts Urine Mucus 01/09/22 01/09/22 01/09/22 22:17 22:17 19:55 WBC RBC Hgb Hct POC Hct MCV MCHC Plt Count MPV Neut % (Auto) Lymph % (Auto) Lymph # (Auto) [place] # (Auto) Absolute Neutrophils PT INR APTT ABG Methemoglobin VBG pH VBG pCO2 VBG pO2 VBG HCO3 VBG Total CO2 VBG O2 Saturation VBG Base Excess VBG Lactic Acid 4.5 H* Carboxyhemoglobin POC Sodium 130 L Sodium POC Potassium Potassium POC Chloride Chloride 90 L Carbon Dioxide 18 L POC Total CO2 16 L Anion Gap 25.0 H POC BUN 61 H BUN 65 H Creatinine 3.4 H POC Creatinine 3.5 H Glucose 637 H* POC Glucose 658 H* Uric Acid 9.7 H Calcium POC WB Ioniz Calcium 1.14 L Phosphorus Lactate Dehydrogenase Troponin T Total Protein Albumin Globulin Urine Appearance Urine Glucose (UA) Urine Ketones Hyaline Casts Urine Mucus 01/09/22 01/09/22 01/09/22 18:01 17:49 16:30 WBC RBC Hgb Hct POC Hct 35 L MCV MCHC Plt Count MPV Neut % (Auto) Lymph % (Auto) Lymph # (Auto) [place] # (Auto) Absolute Neutrophils PT INR APTT ABG Methemoglobin VBG pH VBG pCO2 VBG pO2 VBG HCO3 VBG Total CO2 VBG O2 Saturation VBG Base Excess VBG Lactic Acid Carboxyhemoglobin POC Sodium 128 L Sodium 125 L POC Potassium Potassium POC Chloride Chloride 86 L Carbon Dioxide 11 L POC Total CO2 14 L Anion Gap 28.0 H POC BUN 60 H BUN 65 H Creatinine 3.6 H POC Creatinine 3.4 H Glucose 801 H* POC Glucose > 700 H* Uric Acid Calcium POC WB Ioniz Calcium 1.09 L Phosphorus Lactate Dehydrogenase Troponin T Total Protein Albumin Globulin Urine Appearance Hazy A Urine Glucose (UA) >=500 A Urine Ketones 20 A Hyaline Casts 7 H Urine Mucus Few A 01/09/22 01/09/22 01/09/22 15:43 14:46 13:53 WBC RBC Hgb Hct POC Hct MCV MCHC Plt Count MPV Neut % (Auto) Lymph % (Auto) Lymph # (Auto) [place] # (Auto) Absolute Neutrophils PT INR APTT ABG Methemoglobin VBG pH VBG pCO2 VBG pO2 VBG HCO3 VBG Total CO2 VBG O2 Saturation VBG Base Excess VBG Lactic Acid Carboxyhemoglobin POC Sodium 126 L Sodium 125 L 123 L 123 L POC Potassium 5.2 H Potassium 5.2 H POC Chloride 95 L Chloride 83 L 82 L 81 L Carbon Dioxide 11 L 8 L* 7 L* POC Total CO2 11 L Anion Gap 31.0 H 33.0 H 35.0 H POC BUN 63 H BUN 64 H 64 H 62 H Creatinine 3.5 H 3.7 H 3.6 H POC Creatinine 3.4 H Glucose 921 H* 1001 H* 1003 H* POC Glucose > 700 H* Uric Acid Calcium POC WB Ioniz Calcium 1.15 L Phosphorus Lactate Dehydrogenase Troponin T Total Protein Albumin Globulin Urine Appearance Urine Glucose (UA) Urine Ketones Hyaline Casts Urine Mucus 01/09/22 01/09/22 01/09/22 12:54 12:54 09:49 WBC RBC Hgb Hct POC Hct MCV MCHC Plt Count MPV Neut % (Auto) Lymph % (Auto) Lymph # (Auto) [place] # (Auto) Absolute Neutrophils PT INR APTT ABG Methemoglobin VBG pH VBG pCO2 VBG pO2 VBG HCO3 VBG Total CO2 VBG O2 Saturation VBG Base Excess VBG Lactic Acid 4.4 H* 4.1 H* Carboxyhemoglobin POC Sodium Sodium 125 L POC Potassium Potassium 5.9 H* POC Chloride Chloride 81 L Carbon Dioxide 7 L* POC Total CO2 Anion Gap 37.0 H POC BUN BUN 65 H Creatinine 3.6 H POC Creatinine Glucose 1094 H* POC Glucose Uric Acid Calcium POC WB Ioniz Calcium Phosphorus Lactate Dehydrogenase Troponin T Total Protein Albumin Globulin Urine Appearance Urine Glucose (UA) Urine Ketones Hyaline Casts Urine Mucus 01/09/22 01/09/22 01/09/22 09:35 09:35 09:35 WBC RBC Hgb Hct POC Hct MCV MCHC Plt Count MPV Neut % (Auto) Lymph % (Auto) Lymph # (Auto) [place] # (Auto) Absolute Neutrophils PT INR APTT 43.7 H ABG Methemoglobin VBG pH VBG pCO2 VBG pO2 VBG HCO3 VBG Total CO2 VBG O2 Saturation VBG Base Excess VBG Lactic Acid Carboxyhemoglobin POC Sodium 118 L* Sodium 116 L* POC Potassium 6.6 H* Potassium 6.6 H* POC Chloride 89 L Chloride 73 L Carbon Dioxide 6 L* POC Total CO2 9 L* Anion Gap 37.0 H POC BUN 57 H BUN 67 H Creatinine 3.8 H POC Creatinine 3.7 H Glucose 1253 H* POC Glucose > 700 H* Uric Acid Calcium POC WB Ioniz Calcium 1.04 L Phosphorus Lactate Dehydrogenase Troponin T 0.03 H Total Protein Albumin Globulin Urine Appearance Urine Glucose (UA) Urine Ketones Hyaline Casts Urine Mucus 01/09/22 09:35 WBC 14.2 H RBC Hgb Hct POC Hct MCV 107.2 H MCHC 30.0 L Plt Count 107 L MPV 13.3 H Neut % (Auto) 90.8 H Lymph % (Auto) 5.5 L Lymph # (Auto) 0.78 L [place] # (Auto) Absolute Neutrophils 12.84 H PT INR APTT ABG Methemoglobin VBG pH VBG pCO2 VBG pO2 VBG HCO3 VBG Total CO2 VBG O2 Saturation VBG Base Excess VBG Lactic Acid Carboxyhemoglobin POC Sodium Sodium POC Potassium Potassium POC Chloride Chloride Carbon Dioxide POC Total CO2 Anion Gap POC BUN BUN Creatinine POC Creatinine Glucose POC Glucose Uric Acid Calcium POC WB Ioniz Calcium Phosphorus Lactate Dehydrogenase Troponin T Total Protein Albumin Globulin Urine Appearance Urine Glucose (UA) Urine Ketones Hyaline Casts Urine Mucus Meds: Medications Cefepime HCl (Cefepime 2 Gm Vial) 2 gm IV Q24H [facility]; Protocol Last Admin: 01/11/22 09:29 Dose: 2 gm Documented by: Dextrose (Dextrose 50% 50 Ml Vial) 0 ml IV UD PRN PRN Reason: Per Sliding Scale Dextrose (Dextrose 50% 50 Ml Vial) 0 ml IV UD PRN PRN Reason: Per Sliding Scale Diagnostic Test (Pha) (Accu-Chek 1 Each Strip) 1 each FS ACHS [facility] Last Admin: 01/11/22 08:09 Dose: Not Given Documented by: Diagnostic Test (Pha) (Accu-Chek 1 Each Strip) 1 each FS Q1 [facility] Last Admin: 01/11/22 09:13 Dose: 1 each Documented by: Diagnostic Test (Pha) (Accu-Chek 1 Each Strip) 1 each FS [facility] Glucose (Dextrose 31 Gm Oral.Susp) 15 gm PO PRN PRN PRN Reason: Hypoglycemia Glucose (Dextrose 31 Gm Oral.Susp) 15 gm PO PRN PRN PRN Reason: Hypoglycemia Haloperidol Lactate (Haloperidol Lactate 5 Mg/Ml Vial) 2 mg IV Q4HP PRN PRN Reason: Agitation Last Admin: 01/11/22 01:00 Dose: 2 mg Documented by: Norepinephrine Bitartrate 16 (mg/ Sodium Chloride) 250 mls @ 9.375 mls/hr IV Q24H [facility]; Protocol Last Titration: 01/10/22 18:30 Dose: Infused Documented by: Insulin Human Regular 50 unit/ (Sodium Chloride) 100 mls @ 0 mls/hr IV DUR [facility]; Protocol Last Titration: 01/11/22 00:14 Dose: 1 unit/hr, 2 mls/hr Documented by: Potassium Chloride 40 meq/ (Dextrose) 520 mls @ 130 mls/hr IV ONCE ONE Stop: 01/11/22 11:59 Last Admin: 01/11/22 07:57 Dose: 130 mls/hr Documented by: Insulin Glargine (Insulin Glargine, Human 1 Unit/0.01 Ml) 15 unit SQ DAILY [facility] Last Admin: 01/10/22 11:19 Dose: 15 units Documented by: Insulin Human Lispro (Insulin Lispro 1 Unit/0.01 Ml Unit) 0 unit SQ [facility]; Protocol Lorazepam (Lorazepam 2 Mg/Ml Vial) 0.5 mg IV Q2HP PRN PRN Reason: Agitation Last Admin: 01/10/22 22:31 Dose: 0.5 mg Documented by: Pantoprazole Sodium (Pantoprazole 40 Mg Vial) 40 mg IV BIDAC [facility] Last Admin: 01/11/22 07:53 Dose: 40 mg Documented by: Sodium Chloride (0.9 % Sodium Chloride 10 Ml Syringe) 10 ml IV Q8 [facility] Last Admin: 01/11/22 06:06 Dose: 10 ml Documented by: Vancomycin HCl (Vancomycin Per Pharmacy) 1 order IV UD [facility]; Protocol ABG Interpretation ABG results: 01/09/22 01/10/22 01/10/22 22:17 01:42 06:10 ABG Methemoglobin 0.2 L 0.2 L 0.2 L VBG pH 7.33 7.37 7.45 H VBG pCO2 32.1 L 42.0 36.0 L VBG pO2 37.8 40.3 H 109.7 H VBG HCO3 16.6 L 23.7 L 24.6 VBG Total CO2 17.6 L 25.0 25.7 VBG O2 Saturation 72.9 H 75.6 H 93.8 H VBG Base Excess -8 L -2 1 01/10/22 01/10/22 01/10/22 09:30 14:11 17:38 ABG Methemoglobin 0.1 L 0.2 L 0.3 L VBG pH 7.38 7.47 H 7.40 VBG pCO2 46.1 38.0 L 40.5 L VBG pO2 33.2 73.8 H 36.3 VBG HCO3 26.8 26.8 24.4 VBG Total CO2 28.3 28.0 25.6 VBG O2 Saturation 67.4 91.0 H 68.6 VBG Base Excess 1 3 0 01/10/22 19:54 ABG Methemoglobin 0.3 L VBG pH 7.47 H VBG pCO2 33.1 L VBG pO2 94.4 H VBG HCO3 23.3 L VBG Total CO2 24.3 L VBG O2 Saturation 92.8 H VBG Base Excess 0 A/P Narrative A/P Narrative: Assessment: 81 year old male with a history of hypertension, hyperlipidemia, insulin-dependent type 2 diabetes mellitus, atrial fibrillation on Coumadin, left ventricular diastolic dysfunction, pulmonary hypertension, chronic kidney disease stage IV who presented to the emergency department via EMS after a syncopal event and coffee ground emesis. In the emergency department, the patient was found to be hypotensive requiring vasopressor support and large amount of IV fluid. There is concern the patient has septic shock as her lactic acid was elevated at 4.4. The patient was also found to be in diabetic ketoacidosis. The patient received IV Vitamin K in the ED. the patient was started on broad-spectrum antibiotics, IV fluids, insulin infusion for diabetic ketoacidosis. Diabetic ketoacidosis resolved, the patient was transition to subcutaneous basal bolus insulin however had recurrent diabetic ketoacidosis therefore was transitioned back to a insulin infusion. Lactic acidosis has improved, renal function has improved. Patient is markedly volume overloaded due to IV fluids received for treatment of sepsis, DKA and BRENDAN. She received a dose of IV Lasix, will likely need ongoing intermittent diuresis. #Encephalopathy likely due to delirium from a critical illness #Resolving undifferentiated shock, possibly due to sepsis #Resolving lactic acidosis #Resolved diabetic ketoacidosis #Improving acute on chronic kidney disease IV injury #Hypoxia secondary to congestive heart failure #Volume overload secondary to IV fluid administration #Concern for coffee ground emesis prior to admission #Thrombocytopenia #Syncopal episode. #Atrial fibrillation previously on Coumadin (reversed with IV vitamin K) #Type 2 diabetes mellitus #Essential hypertension #Hyperlipidemia #Obesity BMI 33 #Guarded prognosis Plan -Vancomycin and cefepime IV for now. -Levophed prn for hypotension -Lasix 40 mg IV once, consider ongoing intermittent diuresis. -Transthoracic echocardiogram. -Oxygen supplementation, wean as able. -Follow blood cultures-NGTD. -Start Lantus and correction insulin SSI-high, monitor for recurrent DKA. -Discontinue insulin infusion. -Monitor hemoglobin, platelets. -Holding Coumadin for now. -Protonix IV twice daily for concern of GI bleed. -Follow renal function and urine output, avoid nephrotoxic meds. -Haldol IV prn for agitation, discontinue Ativan IV as needed. -Hold home Coreg, losartan, hydrochlorothiazide, triamterene due to recent shock. -N.p.o. for now. -Speech therapy consult. -When the patient is more stable consider PT and OT consult. -hospitalist program director. -DVT prophylaxis: SCD for thrombocytopenia -CODE STATUS: DNR/DNI -Disposition: Probably nursing home facility if the patient survives this hospitalization. Time Spent With Patient Time: Total time spent is greater than 50% in coordination of care (as documented) at patient's floor/unit and/or counseling patient:
[2022-01-11] MEDS: LORazepam 2 MG/ML VIAL IV PRN (10:45)
[2022-01-11] MEDS: INSULIN GLARGINE, HUMAN 1 UNIT/0.01 ML SQ SCH (10:48)
[2022-01-11] MEDS: NOREPINEPHRINE BITARTRATE 16 MG in 0.9 % SODIUM CHLORIDE 234 ML IV SCH ×3 (11:48→23:51)
[2022-01-11] MEDS: INSULIN LISPRO 1 UNIT/0.01 ML UNIT SQ SCH ×4 (12:17→22:21)
[2022-01-11] MEDS: 0.9 % SODIUM CHLORIDE 250 ML IV SCH ×2 (12:51→23:51)
[2022-01-11] MEDS ORDERED: ALBUMIN HUMAN 12.5 GM/50 ML BAG IV ONE (14:09)
--- NOTE | 2022-01-11 14:11 | Internal Med Progress Note ---
SUBJECTIVE Subjective Patient information: Note initiated : 01/11/22 at 2:01 pm Service Date, if different from initiated Date: [] Patient: Maribel Reaves 81 y/o F admitted on 01/09/22 for Low blood pressure, elevated blood sugar. Chief Complaint: [] Interval history: Ms. Reaves is a 81 year old male with a history of hypertension, hyperlipidemia, insulin-dependent type 2 diabetes mellitus, atrial fibrillation on Coumadin, left ventricular diastolic dysfunction, pulmonary hypertension, chronic kidney disease stage IV who presented to the emergency department via EMS after a syncopal event and coffee ground emesis. In the emergency department the patient was found to be in shock, diabetic ketoacidosis as well as a lactic acidosis complicated by an acute on chronic kidney disease injury. There is concern for septic shock, the patient was started on broad-spectrum antibiotics, IV fluid resuscitation, Levophed for vasopressor support, and insulin infusion for diabetic ketoacidosis as well as a bicarbonate IV infusion for severe metabolic acidosis. Sepsis work-up included a urinalysis which was not suggestive of a UTI, chest x-ray which was suggestive of pulmonary vascular congestion, a CT abdomen pelvis showed bibasilar pulmonary parenchymal infiltrates that could represent pulmonary edema or interstitial pneumonia, cardiomegaly, previous cholecystectomy with prominent common bile duct without intrahepatic duct dilation, a distended fluid-filled stomach otherwise no clear reported evidence of an infectious process. Blood cultures were drawn in the ED. The patient required an right IJ central line placement. CODE STATUS was reviewed with the patient, the patient wishes to be DNR/DNI but is okay with medical management i ncluding vasopressor medications for shock. Hospital medicine was consulted for admission. 01/10 The patient was agitated overnight, pulled out the right IJ central line. Haldol prn started for agitation. Diabetic ketoacidosis resolved, transitioned off insulin infusion to subcutaneous Lantus and sliding scale Humalog. Off Levophed in the morning but was restarted for hypotension while the patient was sleeping. The patient is encephalopathic, CT head ordered and did not show any acute changes. INR down to 1.4, hemoglobin trend has been stable. Making urine and renal function improving. The patient has improved clinical but overall prognosis is still guarded, updated family and friends at the bedside. Overnight, the patient developed a anion gap and an insulin infusion was restarted. 01/11 Weaned off of Levophed, blood sugar stable on insulin infusion. Blood cultures showing no growth to date. Lactic acid decreased to 2.7. Continues on vancomycin and cefepime, renal function continues to improve. Chest x-ray showed pulmonary vascular congestion. 40 mg IV once given. Transthoracic echocardiogram ordered. Transition back to subcutaneous basal bolus insulin. Physical exam Head: Atraumatic, normal inspection. Eyes: normal appearance, no scleral icterus. Neck: Bandage over recent right IJ central line site,full ROM Respiratory: Nasal cannula oxygen, no respiratory distress. Cardiovascular: normal rate and rhythm, S1, S2. GI/Abdominal: soft, nontender, no guarding. Extremities: 1+ bilateral pitting edema. Neurological: CN II-XII intact, intact motor, intact sensation. Psychiatric: Withdrawn, impaired short-term memory. Skin: warm, normal color Constitutional Vitals: Vital Signs Temp Pulse Resp BP Pulse Ox 97.2 F 76 27 H 138/91 100 01/11/22 12:01 01/11/22 13:01 01/11/22 13:01 01/11/22 13:01 01/11/22 13:01 Period Temp Pulse Resp BP Sys/Simpson Pulse Ox Last 24 Hr 96.9 F-98.7 F 31-176 16-58 69-182/48-120 84-100 Intake and Output 01/11/22 01/11/22 01/11/22 05:59 13:59 21:59 Intake Total 18 794 Output Total 505 4015 Balance -487 -3221 Intake & Output: Intake & Output 01/11/22 01/11/22 01/11/22 05:59 13:59 21:59 Intake Total 18 794 Output Total 505 4015 Balance -487 -3221 Intake: IV 18 794 Sodium Chloride 0.9% 1,000 ml @ 0 75 mls/hr IV .[id number] [facility] Rx#: [id number] HumuLIN R 50 UNIT In Sodium 18 21 Chloride 0.9% 99.5 ml @ Per Protocol IV DUR [facility] Rx#: [id number] Levophed 16 mg In Sodium 3 Chloride 0.9% 234 ml @ 10 MCG/ MIN 9.375 mls/hr IV Q24H [facility] Rx #:[id number] Potassium Chloride 40 Meq In 520 Dextrose 5% in Water 500 ml @ 130 mls/hr IV ONCE ONE Rx#: [id number] Vancomycin 1,000 mg In Sodium 250 Chloride 0.9% 250 ml @ 250 mls/ hr IV ONCE ONE Rx#:[id number] Output: Urine Catheter Amount 505 4015 Other: Urine Appearance Cloudy Clear Uretheral (Hanks) Cloudy Clear Urine Color Dark Yellow Bright Yellow Uretheral (Hanks) Dark Yellow Pale Urine Odor Normal OBJ DATA Labs CBC & Chem 7: 01/11/22 05:34 01/11/22 05:34 Labs: Abnormal Lab Results 01/11/22 01/11/22 01/11/22 05:34 05:34 01:12 WBC 12.1 H RBC 3.46 L Hgb 11.0 L Hct 33.4 L POC Hct MCV MCHC Plt Count 71 L MPV 11.9 H Neut % (Auto) 79.5 H Lymph % (Auto) 10.8 L Lymph # (Auto) 1.30 L [place] # (Auto) 1.13 H Absolute Neutrophils 9.62 H PT INR APTT ABG Methemoglobin VBG pH VBG pCO2 VBG pO2 VBG HCO3 VBG Total CO2 VBG O2 Saturation VBG Base Excess VBG Lactic Acid 2.7 H Carboxyhemoglobin POC Sodium Sodium POC Potassium Potassium POC Chloride Chloride Carbon Dioxide POC Total CO2 Anion Gap POC BUN BUN 48 H Creatinine 2.1 H POC Creatinine Glucose 161 H POC Glucose Uric Acid Calcium 8.5 L POC WB Ioniz Calcium Phosphorus Lactate Dehydrogenase 277 H Troponin T Total Protein 5.1 L Albumin 3.0 L Globulin 2.1 L Urine Appearance Urine Glucose (UA) Urine Ketones Hyaline Casts Urine Mucus 01/11/22 01/10/22 01/10/22 01:12 20:04 19:54 WBC RBC Hgb Hct POC Hct MCV MCHC Plt Count MPV Neut % (Auto) Lymph % (Auto) Lymph # (Auto) [place] # (Auto) Absolute Neutrophils PT INR APTT ABG Methemoglobin 0.3 L VBG pH 7.47 H VBG pCO2 33.1 L VBG pO2 94.4 H VBG HCO3 23.3 L VBG Total CO2 24.3 L VBG O2 Saturation 92.8 H VBG Base Excess VBG Lactic Acid 4.2 H* Carboxyhemoglobin 4.5 H POC Sodium Sodium POC Potassium Potassium 3.2 L POC Chloride Chloride Carbon Dioxide POC Total CO2 Anion Gap POC BUN BUN 52 H Creatinine 2.5 H POC Creatinine Glucose 161 H POC Glucose Uric Acid Calcium POC WB Ioniz Calcium Phosphorus 2.3 L Lactate Dehydrogenase Troponin T Total Protein Albumin Globulin Urine Appearance Urine Glucose (UA) Urine Ketones Hyaline Casts Urine Mucus 01/10/22 01/10/22 01/10/22 19:54 17:38 17:38 WBC RBC Hgb Hct POC Hct MCV MCHC Plt Count MPV Neut % (Auto) Lymph % (Auto) Lymph # (Auto) [place] # (Auto) Absolute Neutrophils PT INR APTT ABG Methemoglobin 0.3 L VBG pH VBG pCO2 40.5 L VBG pO2 VBG HCO3 VBG Total CO2 VBG O2 Saturation VBG Base Excess VBG Lactic Acid Carboxyhemoglobin POC Sodium Sodium 132 L POC Potassium Potassium POC Chloride Chloride 93 L 93 L Carbon Dioxide POC Total CO2 Anion Gap 17.0 H 18.0 H POC BUN BUN 56 H 56 H Creatinine 2.6 H 2.5 H POC Creatinine Glucose 271 H 303 H POC Glucose Uric Acid Calcium POC WB Ioniz Calcium Phosphorus Lactate Dehydrogenase Troponin T Total Protein Albumin Globulin Urine Appearance Urine Glucose (UA) Urine Ketones Hyaline Casts Urine Mucus 01/10/22 01/10/22 01/10/22 14:11 14:11 14:09 WBC RBC Hgb Hct POC Hct MCV MCHC Plt Count MPV Neut % (Auto) Lymph % (Auto) Lymph # (Auto) [place] # (Auto) Absolute Neutrophils PT INR APTT ABG Methemoglobin 0.2 L VBG pH 7.47 H VBG pCO2 38.0 L VBG pO2 73.8 H VBG HCO3 VBG Total CO2 VBG O2 Saturation 91.0 H VBG Base Excess VBG Lactic Acid 4.0 H* Carboxyhemoglobin 4.9 H POC Sodium Sodium POC Potassium Potassium POC Chloride Chloride 95 L Carbon Dioxide POC Total CO2 Anion Gap POC BUN BUN 59 H Creatinine 2.6 H POC Creatinine Glucose 176 H POC Glucose Uric Acid Calcium POC WB Ioniz Calcium Phosphorus 1.4 L Lactate Dehydrogenase Troponin T Total Protein Albumin Globulin Urine Appearance Urine Glucose (UA) Urine Ketones Hyaline Casts Urine Mucus 01/10/22 01/10/22 01/10/22 09:30 09:30 06:10 WBC RBC Hgb Hct POC Hct MCV MCHC Plt Count MPV Neut % (Auto) Lymph % (Auto) Lymph # (Auto) [place] # (Auto) Absolute Neutrophils PT INR APTT ABG Methemoglobin 0.1 L 0.2 L VBG pH 7.45 H VBG pCO2 36.0 L VBG pO2 109.7 H VBG HCO3 VBG Total CO2 VBG O2 Saturation 93.8 H VBG Base Excess VBG Lactic Acid Carboxyhemoglobin 3.9 H 4.0 H POC Sodium Sodium POC Potassium Potassium POC Chloride Chloride 95 L Carbon Dioxide POC Total CO2 Anion Gap POC BUN BUN 59 H Creatinine 2.8 H POC Creatinine Glucose 206 H POC Glucose Uric Acid Calcium POC WB Ioniz Calcium Phosphorus 2.0 L Lactate Dehydrogenase Troponin T Total Protein Albumin Globulin Urine Appearance Urine Glucose (UA) Urine Ketones Hyaline Casts Urine Mucus 01/10/22 01/10/22 01/10/22 06:10 06:09 01:42 WBC RBC Hgb Hct POC Hct MCV MCHC Plt Count MPV Neut % (Auto) Lymph % (Auto) Lymph # (Auto) [place] # (Auto) Absolute Neutrophils PT 17.4 H INR 1.4 H APTT ABG Methemoglobin 0.2 L VBG pH VBG pCO2 VBG pO2 40.3 H VBG HCO3 23.7 L VBG Total CO2 VBG O2 Saturation 75.6 H VBG Base Excess VBG Lactic Acid Carboxyhemoglobin 3.5 H POC Sodium Sodium POC Potassium Potassium POC Chloride Chloride Carbon Dioxide POC Total CO2 Anion Gap POC BUN BUN 63 H Creatinine 3.0 H POC Creatinine Glucose 330 H POC Glucose Uric Acid Calcium POC WB Ioniz Calcium Phosphorus 2.2 L Lactate Dehydrogenase Troponin T Total Protein Albumin Globulin Urine Appearance Urine Glucose (UA) Urine Ketones Hyaline Casts Urine Mucus 01/10/22 01/09/22 01/09/22 01:42 22:17 22:17 WBC RBC Hgb Hct POC Hct MCV MCHC Plt Count MPV Neut % (Auto) Lymph % (Auto) Lymph # (Auto) [place] # (Auto) Absolute Neutrophils PT INR APTT ABG Methemoglobin 0.2 L VBG pH VBG pCO2 32.1 L VBG pO2 VBG HCO3 16.6 L VBG Total CO2 17.6 L VBG O2 Saturation 72.9 H VBG Base Excess -8 L VBG Lactic Acid Carboxyhemoglobin 5.3 H POC Sodium 131 L Sodium 132 L POC Potassium Potassium POC Chloride Chloride 91 L Carbon Dioxide POC Total CO2 20 L Anion Gap 18.0 H POC BUN 61 H BUN 69 H Creatinine 3.2 H POC Creatinine 3.5 H Glucose 404 H POC Glucose 610 H* Uric Acid Calcium POC WB Ioniz Calcium 1.14 L Phosphorus 2.0 L Lactate Dehydrogenase Troponin T Total Protein Albumin Globulin Urine Appearance Urine Glucose (UA) Urine Ketones Hyaline Casts Urine Mucus 01/09/22 01/09/22 01/09/22 22:17 22:17 19:55 WBC RBC Hgb Hct POC Hct MCV MCHC Plt Count MPV Neut % (Auto) Lymph % (Auto) Lymph # (Auto) [place] # (Auto) Absolute Neutrophils PT INR APTT ABG Methemoglobin VBG pH VBG pCO2 VBG pO2 VBG HCO3 VBG Total CO2 VBG O2 Saturation VBG Base Excess VBG Lactic Acid 4.5 H* Carboxyhemoglobin POC Sodium 130 L Sodium POC Potassium Potassium POC Chloride Chloride 90 L Carbon Dioxide 18 L POC Total CO2 16 L Anion Gap 25.0 H POC BUN 61 H BUN 65 H Creatinine 3.4 H POC Creatinine 3.5 H Glucose 637 H* POC Glucose 658 H* Uric Acid 9.7 H Calcium POC WB Ioniz Calcium 1.14 L Phosphorus Lactate Dehydrogenase Troponin T Total Protein Albumin Globulin Urine Appearance Urine Glucose (UA) Urine Ketones Hyaline Casts Urine Mucus 01/09/22 01/09/22 01/09/22 18:01 17:49 16:30 WBC RBC Hgb Hct POC Hct 35 L MCV MCHC Plt Count MPV Neut % (Auto) Lymph % (Auto) Lymph # (Auto) [place] # (Auto) Absolute Neutrophils PT INR APTT ABG Methemoglobin VBG pH VBG pCO2 VBG pO2 VBG HCO3 VBG Total CO2 VBG O2 Saturation VBG Base Excess VBG Lactic Acid Carboxyhemoglobin POC Sodium 128 L Sodium 125 L POC Potassium Potassium POC Chloride Chloride 86 L Carbon Dioxide 11 L POC Total CO2 14 L Anion Gap 28.0 H POC BUN 60 H BUN 65 H Creatinine 3.6 H POC Creatinine 3.4 H Glucose 801 H* POC Glucose > 700 H* Uric Acid Calcium POC WB Ioniz Calcium 1.09 L Phosphorus Lactate Dehydrogenase Troponin T Total Protein Albumin Globulin Urine Appearance Hazy A Urine Glucose (UA) >=500 A Urine Ketones 20 A Hyaline Casts 7 H Urine Mucus Few A 01/09/22 01/09/22 01/09/22 15:43 14:46 13:53 WBC RBC Hgb Hct POC Hct MCV MCHC Plt Count MPV Neut % (Auto) Lymph % (Auto) Lymph # (Auto) [place] # (Auto) Absolute Neutrophils PT INR APTT ABG Methemoglobin VBG pH VBG pCO2 VBG pO2 VBG HCO3 VBG Total CO2 VBG O2 Saturation VBG Base Excess VBG Lactic Acid Carboxyhemoglobin POC Sodium 126 L Sodium 125 L 123 L 123 L POC Potassium 5.2 H Potassium 5.2 H POC Chloride 95 L Chloride 83 L 82 L 81 L Carbon Dioxide 11 L 8 L* 7 L* POC Total CO2 11 L Anion Gap 31.0 H 33.0 H 35.0 H POC BUN 63 H BUN 64 H 64 H 62 H Creatinine 3.5 H 3.7 H 3.6 H POC Creatinine 3.4 H Glucose 921 H* 1001 H* 1003 H* POC Glucose > 700 H* Uric Acid Calcium POC WB Ioniz Calcium 1.15 L Phosphorus Lactate Dehydrogenase Troponin T Total Protein Albumin Globulin Urine Appearance Urine Glucose (UA) Urine Ketones Hyaline Casts Urine Mucus 01/09/22 01/09/22 01/09/22 12:54 12:54 09:49 WBC RBC Hgb Hct POC Hct MCV MCHC Plt Count MPV Neut % (Auto) Lymph % (Auto) Lymph # (Auto) [place] # (Auto) Absolute Neutrophils PT INR APTT ABG Methemoglobin VBG pH VBG pCO2 VBG pO2 VBG HCO3 VBG Total CO2 VBG O2 Saturation VBG Base Excess VBG Lactic Acid 4.4 H* 4.1 H* Carboxyhemoglobin POC Sodium Sodium 125 L POC Potassium Potassium 5.9 H* POC Chloride Chloride 81 L Carbon Dioxide 7 L* POC Total CO2 Anion Gap 37.0 H POC BUN BUN 65 H Creatinine 3.6 H POC Creatinine Glucose 1094 H* POC Glucose Uric Acid Calcium POC WB Ioniz Calcium Phosphorus Lactate Dehydrogenase Troponin T Total Protein Albumin Globulin Urine Appearance Urine Glucose (UA) Urine Ketones Hyaline Casts Urine Mucus 01/09/22 01/09/22 01/09/22 09:35 09:35 09:35 WBC RBC Hgb Hct POC Hct MCV MCHC Plt Count MPV Neut % (Auto) Lymph % (Auto) Lymph # (Auto) [place] # (Auto) Absolute Neutrophils PT INR APTT 43.7 H ABG Methemoglobin VBG pH VBG pCO2 VBG pO2 VBG HCO3 VBG Total CO2 VBG O2 Saturation VBG Base Excess VBG Lactic Acid Carboxyhemoglobin POC Sodium 118 L* Sodium 116 L* POC Potassium 6.6 H* Potassium 6.6 H* POC Chloride 89 L Chloride 73 L Carbon Dioxide 6 L* POC Total CO2 9 L* Anion Gap 37.0 H POC BUN 57 H BUN 67 H Creatinine 3.8 H POC Creatinine 3.7 H Glucose 1253 H* POC Glucose > 700 H* Uric Acid Calcium POC WB Ioniz Calcium 1.04 L Phosphorus Lactate Dehydrogenase Troponin T 0.03 H Total Protein Albumin Globulin Urine Appearance Urine Glucose (UA) Urine Ketones Hyaline Casts Urine Mucus 01/09/22 09:35 WBC 14.2 H RBC Hgb Hct POC Hct MCV 107.2 H MCHC 30.0 L Plt Count 107 L MPV 13.3 H Neut % (Auto) 90.8 H Lymph % (Auto) 5.5 L Lymph # (Auto) 0.78 L [place] # (Auto) Absolute Neutrophils 12.84 H PT INR APTT ABG Methemoglobin VBG pH VBG pCO2 VBG pO2 VBG HCO3 VBG Total CO2 VBG O2 Saturation VBG Base Excess VBG Lactic Acid Carboxyhemoglobin POC Sodium Sodium POC Potassium Potassium POC Chloride Chloride Carbon Dioxide POC Total CO2 Anion Gap POC BUN BUN Creatinine POC Creatinine Glucose POC Glucose Uric Acid Calcium POC WB Ioniz Calcium Phosphorus Lactate Dehydrogenase Troponin T Total Protein Albumin Globulin Urine Appearance Urine Glucose (UA) Urine Ketones Hyaline Casts Urine Mucus Meds: Medications Cefepime HCl (Cefepime 2 Gm Vial) 2 gm IV Q24H [facility]; Protocol Last Admin: 01/11/22 09:29 Dose: 2 gm Documented by: Dextrose (Dextrose 50% 50 Ml Vial) 0 ml IV UD PRN PRN Reason: Per Sliding Scale Dextrose (Dextrose 50% 50 Ml Vial) 0 ml IV UD PRN PRN Reason: Per Sliding Scale Diagnostic Test (Pha) (Accu-Chek 1 Each Strip) 1 each FS Q1 [facility] Last Admin: 01/11/22 13:00 Dose: 1 each Documented by: Diagnostic Test (Pha) (Accu-Chek 1 Each Strip) 1 each FS ACHS [facility] Last Admin: 01/11/22 11:49 Dose: Not Given Documented by: Glucose (Dextrose 31 Gm Oral.Susp) 15 gm PO PRN PRN PRN Reason: Hypoglycemia Glucose (Dextrose 31 Gm Oral.Susp) 15 gm PO PRN PRN PRN Reason: Hypoglycemia Haloperidol Lactate (Haloperidol Lactate 5 Mg/Ml Vial) 2 mg IV Q4HP PRN PRN Reason: Agitation Last Admin: 01/11/22 01:00 Dose: 2 mg Documented by: Norepinephrine Bitartrate 16 (mg/ Sodium Chloride) 250 mls @ 9.375 mls/hr IV Q24H [facility]; Protocol Last Titration: 01/11/22 13:05 Dose: 2 mcg/min, 1.875 mls/hr Documented by: Insulin Human Regular 50 unit/ (Sodium Chloride) 100 mls @ 0 mls/hr IV DUR [facility]; Protocol Last Titration: 01/11/22 10:30 Dose: 2 unit/hr, 4 mls/hr Documented by: Sodium Chloride (Sodium Chloride 0.9%) 250 mls @ 20 mls/hr IV .[id number] [facility] Last Admin: 01/11/22 12:51 Dose: 20 mls/hr Documented by: Insulin Glargine (Insulin Glargine, Human 1 Unit/0.01 Ml) 15 unit SQ DAILY [facility] Last Admin: 01/11/22 10:48 Dose: 15 units Documented by: Insulin Human Lispro (Insulin Lispro 1 Unit/0.01 Ml Unit) 0 unit SQ ACHS [facility]; Protocol Last Admin: 01/11/22 12:17 Dose: 12 units Documented by: Pantoprazole Sodium (Pantoprazole 40 Mg Vial) 40 mg IV BIDAC [facility] Last Admin: 01/11/22 07:53 Dose: 40 mg Documented by: Sodium Chloride (0.9 % Sodium Chloride 10 Ml Syringe) 10 ml IV Q8 [facility] Last Admin: 01/11/22 12:48 Dose: 10 ml Documented by: Vancomycin HCl (Vancomycin Per Pharmacy) 1 order IV UD [facility]; Protocol ABG Interpretation ABG results: 01/09/22 01/10/22 01/10/22 22:17 01:42 06:10 ABG Methemoglobin 0.2 L 0.2 L 0.2 L VBG pH 7.33 7.37 7.45 H VBG pCO2 32.1 L 42.0 36.0 L VBG pO2 37.8 40.3 H 109.7 H VBG HCO3 16.6 L 23.7 L 24.6 VBG Total CO2 17.6 L 25.0 25.7 VBG O2 Saturation 72.9 H 75.6 H 93.8 H VBG Base Excess -8 L -2 1 01/10/22 01/10/22 01/10/22 09:30 14:11 17:38 ABG Methemoglobin 0.1 L 0.2 L 0.3 L VBG pH 7.38 7.47 H 7.40 VBG pCO2 46.1 38.0 L 40.5 L VBG pO2 33.2 73.8 H 36.3 VBG HCO3 26.8 26.8 24.4 VBG Total CO2 28.3 28.0 25.6 VBG O2 Saturation 67.4 91.0 H 68.6 VBG Base Excess 1 3 0 01/10/22 19:54 ABG Methemoglobin 0.3 L VBG pH 7.47 H VBG pCO2 33.1 L VBG pO2 94.4 H VBG HCO3 23.3 L VBG Total CO2 24.3 L VBG O2 Saturation 92.8 H VBG Base Excess 0 A/P Narrative A/P Narrative: A: #undifferentiated shock, possibly due to sepsis: -BC neg #Encephalopathy: 2/2 delirium from a critical illness #Lactic acidosis: improving #DKA: Resolved #BRENDAN on CKD IV: improving #Acute hypoxic respiratory failure: 2/2 chf #Acute on diastolic chronic CHF: #Volume overload: IV fluid resuscitation #Concern for coffee ground emesis prior to admission #Thrombocytopenia: #Syncopal episode #Atrial fibrillation: previously on Coumadin (reversed with IV vitamin K) #DM 2: #HTN/HLD: #Obesity: BMI 33 #Guarded prognosis Plan -Vancomycin/cefepime IV for now -Levophed or albumin prn for hypotension -Lasix 40 mg IV once, consider ongoing intermittent diuresis -Transthoracic echocardiogram pending -Oxygen supplementation, wean as able -Start Lantus and SSI-high -Monitor hemoglobin, platelets -Holding Coumadin for now -Protonix IV twice daily for concern of GI bleed -Haldol IV prn for agitation, discontinue Ativan IV as needed -Hold home Coreg/losartan/hydrochlorothiazide/triamterene due to recent shock -N.p.o. for now -Speech therapy consult. -pt/ot when able -Case management for likely SNF when stable -ppx: SCD (given thrombocytopenia) / ppi CODE STATUS: DNR/DNI Time Spent With Patient Time: Total time spent is greater than 50% in coordination of care (as documented) at patient's floor/unit and/or counseling patient:
[2022-01-11 16:48] LABS: Albumin 3.7 gm/dL (3.2-5.2); Blood Urea Nitrogen 42 mg/dL (8-23); Calcium 8.5 mg/dL (8.6-10.4); Carbon Dioxide 33 mmol/L (22-30); Chloride 89 mmol/L (96-108); Glomerular Filtration Rate 23; Glucose 179 mg/dL (70-105); Phosphorous 1.8 mg/dL (2.5-4.5)
[2022-01-11] MEDS ORDERED: POTASSIUM PHOSPHATE 40 MEQ in DEXTROSE 5% IN WATER 500 ML IV ONE (17:41)
[2022-01-11] MEDS: NEUTRA PHOS 1 PACKET PO SCH ×2 (18:34→20:40)
[2022-01-11] MEDS ORDERED: POTASSIUM CHLORIDE 20 MEQ/10 ML VIAL IV ONE (18:50)
[2022-01-11] MEDS ORDERED: POTASSIUM PHOSPHATE 66 MEQ/15 ML VIAL IV ONE (19:07)
[2022-01-11] MEDS ORDERED: INSULIN LISPRO 1 UNIT/0.01 ML UNIT SQ ONE (22:28)
[2022-01-12] MEDS: INSULIN LISPRO 1 UNIT/0.01 ML UNIT SQ SCH ×6 (00:17→19:59)
[2022-01-12] MEDS: HALOPERIDOL LACTATE 5 MG/ML VIAL IV PRN ×2 (01:37→19:42)
[2022-01-12] MEDS: 0.9 % SODIUM CHLORIDE 10 ML SYRINGE IV SCH ×3 (05:55→21:34)
[2022-01-12 06:56] LABS: Basophils # (Auto) 0.02 K/mcL (0.00-0.30); Basophils % (Auto) 0.2 % (0.0-2.0); Eosinophils # (Auto) 0.11 K/mcL (0.00-0.70); Eosinophils % (Auto) 1.3 % (0.0-7.0); Hematocrit 35.6 % (34.1-44.9); Hemoglobin 12.1 g/dL (11.2-15.7); Lymphocytes # (Auto) 1.13 K/mcL (1.50-4.80); Lymphocytes % (Auto) 13.3 % (15.5-49.0); Mean Cell Volume 95.4 fL (80.0-100.0); Mean Platelet Volume 11.4 fL (7.4-10.4); Monocytes % (Auto) 8.3 % (1.0-12.0); Neutrophils % (Auto) 76.9 % (38.0-78.0); Platelet Count 72 K/mcL (140-440); RBC 3.73 M/mcL (3.59-5.38); Red Cell Distribution Width 13.1 % (11.5-14.5); WBC 8.5 K/mcL (4.5-11.0)
[2022-01-12 07:31] LABS: Vancomycin,Random 18.2 ug/mL
[2022-01-12 07:42] LABS: ALT/SGPT 11 U/L (<40); AST/SGOT 21 U/L (<32); Albumin/Globulin Ratio 1.5 (1.0-2.3); Alkaline Phosphatase 67 U/L (39-117); Bilirubin,Direct 0.3 mg/dL (<0.3); Bilirubin,Total 0.7 mg/dL (0.1-1.0); Blood Urea Nitrogen 35 mg/dL (8-23); Calcium 7.9 mg/dL (8.6-10.4); Carbon Dioxide 28 mmol/L (22-30); Chloride 92 mmol/L (96-108); Glomerular Filtration Rate 32; Glucose 149 mg/dL (70-105); Lactate Dehydrogenase 263 U/L (135-225); Phosphorous 3.3 mg/dL (2.5-4.5); Triglycerides 83 mg/dL (<150); Uric Acid 6.7 mg/dL (2.5-8.0)
[2022-01-12] MEDS: PANTOPRAZOLE 40 MG VIAL IV SCH ×2 (07:52→16:15)
[2022-01-12] MEDS ORDERED: ALBUMIN HUMAN 12.5 GM/50 ML BAG IV ONE ×2 (08:03→15:30)
[2022-01-12] MEDS ORDERED: FUROSEMIDE 40 MG/4 ML VIAL IV ONE (08:03)
[2022-01-12] MEDS ORDERED: MAGNESIUM SULFATE 2 GM/50 ML BAG IV ONE (08:12)
--- NOTE | 2022-01-12 08:13 | Internal Med Progress Note ---
SUBJECTIVE Subjective Patient information: Note initiated : 01/12/22 at 8:02 am Service Date, if different from initiated Date: [] Patient: Maribel Reaves 81 y/o F admitted on 01/09/22 for Low blood pressure, elevated blood sugar. Chief Complaint: [] Interval history: Ms. Reaves is a 81 year old male with a history of hypertension, hyperlipidemia, insulin-dependent type 2 diabetes mellitus, atrial fibrillation on Coumadin, left ventricular diastolic dysfunction, pulmonary hypertension, chronic kidney disease stage IV who presented to the emergency department via EMS after a syncopal event and coffee ground emesis. In the emergency department the patient was found to be in shock, diabetic ketoacidosis as well as a lactic acidosis complicated by an acute on chronic kidney disease injury. There is concern for septic shock, the patient was started on broad-spectrum antibiotics, IV fluid resuscitation, Levophed for vasopressor support, and insulin infusion for diabetic ketoacidosis as well as a bicarbonate IV infusion for severe metabolic acidosis. Sepsis work-up included a urinalysis which was not suggestive of a UTI, chest x-ray which was suggestive of pulmonary vascular congestion, a CT abdomen pelvis showed bibasilar pulmonary parenchymal infiltrates that could represent pulmonary edema or interstitial pneumonia, cardiomegaly, previous cholecystectomy with prominent common bile duct without intrahepatic duct dilation, a distended fluid-filled stomach otherwise no clear reported evidence of an infectious process. Blood cultures were drawn in the ED. The patient required an right IJ central line placement. CODE STATUS was reviewed with the patient, the patient wishes to be DNR/DNI but is okay with medical management i ncluding vasopressor medications for shock. Hospital medicine was consulted for admission. 01/10 The patient was agitated overnight, pulled out the right IJ central line. Haldol prn started for agitation. Diabetic ketoacidosis resolved, transitioned off insulin infusion to subcutaneous Lantus and sliding scale Humalog. Off Levophed in the morning but was restarted for hypotension while the patient was sleeping. The patient is encephalopathic, CT head ordered and did not show any acute changes. INR down to 1.4, hemoglobin trend has been stable. Making urine and renal function improving. The patient has improved clinical but overall prognosis is still guarded, updated family and friends at the bedside. Overnight, the patient developed a anion gap and an insulin infusion was restarted. 01/11 Weaned off of Levophed, blood sugar stable on insulin infusion. Blood cultures showing no growth to date. Lactic acid decreased to 2.7. Continues on vancomycin and cefepime, renal function continues to improve. Chest x-ray showed pulmonary vascular congestion. 40 mg IV once given. Transthoracic echocardiogram ordered. Transition back to subcutaneous basal bolus insulin. 01/12 Patient became agitated and pulled out a lot of her lines overnight. Received Haldol. Drowsy this morning but does answer questions slowly. Unable to take p.o. at this point and will start tube feedings. Had to start vasopressor back on. Leukocytosis improved. Hypokalemia/ hypomagnesemia. Creatinine better. Awaiting stool sample for occult blood test. Review of Systems: denies headache/fever/chills/nausea/vomiting/chest or abdominal pain/cough/dyspnea/diarrhea. Otherwise see above. Constitutional Vitals: Vital Signs Temp Pulse Resp BP Pulse Ox 97.5 F 94 H 26 H 136/103 97 01/12/22 07:50 01/12/22 07:50 01/12/22 07:50 01/12/22 07:50 01/12/22 07:50 Period Temp Pulse Resp BP Sys/Simpson Pulse Ox Last 24 Hr 97.2 F-98.2 F 58-118 16-70 69-151/44-103 90-100 Intake and Output 01/11/22 01/12/22 01/12/22 21:59 05:59 13:59 Intake Total 872 124.3105 5 Output Total 1620 460 69 Balance -1423 54.0909 -64 Weight 99.507 kg Intake & Output: Intake & Output 01/11/22 01/12/22 01/12/22 21:59 05:59 13:59 Intake Total 948 438.0040 5 Output Total 1620 460 69 Balance -1423 54.0909 -64 Weight 99.507 kg Intake: IV 354 012.6435 5 Sodium Chloride 0.9% 250 ml @ 143 20 mls/hr IV .[id number] [facility] Rx#: [id number] HumuLIN R 50 UNIT In Sodium 0 Chloride 0.9% 99.5 ml @ Per Protocol IV DUR [facility] Rx#: [id number] Levophed 16 mg In Sodium 4 5 5 Chloride 0.9% 234 ml @ 10 MCG/ MIN 9.375 mls/hr IV Q24H [facility] Rx #:[id number] Potassium Phosphate 40 Meq In 509.0909 Dextrose 5% in Water 500 ml @ 127.273 mls/hr IV ONCE ONE Rx#: [id number] Output: Urine Catheter Amount 1620 435 69 Void Amount 25 Other: Urine Appearance Clear Clear Uretheral (Hanks) Clear Clear Urine Color Bright Yellow Dark Yellow Uretheral (Hanks) Bright Yellow Bright Yellow Urine Odor Normal Uretheral (Hanks) Foul Exam: General: Drowsy, No acute Distress, obese Eyes/N/T: EOMI, Head/Neck: neck supple, normocephalic atraumatic CV: RRR, No murmurs, normal s1/s2 Pulm: Clear b/l, no wheezing/rhonchi/rales Abd: soft, nontender, +BS x4 Ext: no clubbing/cyanosis, b/l LE 1+ edema Neuro: Drowsy but does move extremities and answers questions slowly, no focal deficits, Skin: warm/dry OBJ DATA Labs CBC & Chem 7: 01/12/22 05:19 01/12/22 05:19 Labs: Abnormal Lab Results 01/12/22 01/12/22 01/11/22 05:19 05:19 15:36 WBC RBC Hgb Hct POC Hct MCV MCHC Plt Count 72 L MPV 11.4 H Neut % (Auto) Lymph % (Auto) 13.3 L Lymph # (Auto) 1.13 L Crenshaw # (Auto) Absolute Neutrophils PT INR APTT ABG Methemoglobin VBG pH VBG pCO2 VBG pO2 VBG HCO3 VBG Total CO2 VBG O2 Saturation VBG Base Excess VBG Lactic Acid Carboxyhemoglobin POC Sodium Sodium POC Potassium Potassium 3.1 L 3.1 L POC Chloride Chloride 92 L 89 L Carbon Dioxide 33 H POC Total CO2 Anion Gap POC BUN BUN 35 H 42 H Creatinine 1.5 H 2.0 H POC Creatinine Glucose 149 H 179 H POC Glucose Uric Acid Calcium 7.9 L 8.5 L POC WB Ioniz Calcium Phosphorus 1.8 L Magnesium 1.5 L Direct Bilirubin 0.3 H Lactate Dehydrogenase 263 H Troponin T Total Protein 5.0 L Albumin 3.0 L Globulin 2.0 L Urine Appearance Urine Glucose (UA) Urine Ketones Hyaline Casts Urine Mucus 01/11/22 01/11/2222 05:34 05:34 01:12 WBC 12.1 H RBC 3.46 L Hgb 11.0 L Hct 33.4 L POC Hct MCV MCHC Plt Count 71 L MPV 11.9 H Neut % (Auto) 79.5 H Lymph % (Auto) 10.8 L Lymph # (Auto) 1.30 L Crenshaw # (Auto) 1.13 H Absolute Neutrophils 9.62 H PT INR APTT ABG Methemoglobin VBG pH VBG pCO2 VBG pO2 VBG HCO3 VBG Total CO2 VBG O2 Saturation VBG Base Excess VBG Lactic Acid 2.7 H Carboxyhemoglobin POC Sodium Sodium POC Potassium Potassium POC Chloride Chloride Carbon Dioxide POC Total CO2 Anion Gap POC BUN BUN 48 H Creatinine 2.1 H POC Creatinine Glucose 161 H POC Glucose Uric Acid Calcium 8.5 L POC WB Ioniz Calcium Phosphorus Magnesium Direct Bilirubin Lactate Dehydrogenase 277 H Troponin T Total Protein 5.1 L Albumin 3.0 L Globulin 2.1 L Urine Appearance Urine Glucose (UA) Urine Ketones Hyaline Casts Urine Mucus 01/11/22 01/10/22 01/10/22 01:12 20:04 19:54 WBC RBC Hgb Hct POC Hct MCV MCHC Plt Count MPV Neut % (Auto) Lymph % (Auto) Lymph # (Auto) Crenshaw # (Auto) Absolute Neutrophils PT INR APTT ABG Methemoglobin 0.3 L VBG pH 7.47 H VBG pCO2 33.1 L VBG pO2 94.4 H VBG HCO3 23.3 L VBG Total CO2 24.3 L VBG O2 Saturation 92.8 H VBG Base Excess VBG Lactic Acid 4.2 H* Carboxyhemoglobin 4.5 H POC Sodium Sodium POC Potassium Potassium 3.2 L POC Chloride Chloride Carbon Dioxide POC Total CO2 Anion Gap POC BUN BUN 52 H Creatinine 2.5 H POC Creatinine Glucose 161 H POC Glucose Uric Acid Calcium POC WB Ioniz Calcium Phosphorus 2.3 L Magnesium Direct Bilirubin Lactate Dehydrogenase Troponin T Total Protein Albumin Globulin Urine Appearance Urine Glucose (UA) Urine Ketones Hyaline Casts Urine Mucus 01/10/22 01/10/22 01/10/22 19:54 17:38 17:38 WBC RBC Hgb Hct POC Hct MCV MCHC Plt Count MPV Neut % (Auto) Lymph % (Auto) Lymph # (Auto) Crenshaw # (Auto) Absolute Neutrophils PT INR APTT ABG Methemoglobin 0.3 L VBG pH VBG pCO2 40.5 L VBG pO2 VBG HCO3 VBG Total CO2 VBG O2 Saturation VBG Base Excess VBG Lactic Acid Carboxyhemoglobin POC Sodium Sodium 132 L POC Potassium Potassium POC Chloride Chloride 93 L 93 L Carbon Dioxide POC Total CO2 Anion Gap 17.0 H 18.0 H POC BUN BUN 56 H 56 H Creatinine 2.6 H 2.5 H POC Creatinine Glucose 271 H 303 H POC Glucose Uric Acid Calcium POC WB Ioniz Calcium Phosphorus Magnesium Direct Bilirubin Lactate Dehydrogenase Troponin T Total Protein Albumin Globulin Urine Appearance Urine Glucose (UA) Urine Ketones Hyaline Casts Urine Mucus 01/10/22 01/10/22 01/10/22 14:11 14:11 14:09 WBC RBC Hgb Hct POC Hct MCV MCHC Plt Count MPV Neut % (Auto) Lymph % (Auto) Lymph # (Auto) Crenshaw # (Auto) Absolute Neutrophils PT INR APTT ABG Methemoglobin 0.2 L VBG pH 7.47 H VBG pCO2 38.0 L VBG pO2 73.8 H VBG HCO3 VBG Total CO2 VBG O2 Saturation 91.0 H VBG Base Excess VBG Lactic Acid 4.0 H* Carboxyhemoglobin 4.9 H POC Sodium Sodium POC Potassium Potassium POC Chloride Chloride 95 L Carbon Dioxide POC Total CO2 Anion Gap POC BUN BUN 59 H Creatinine 2.6 H POC Creatinine Glucose 176 H POC Glucose Uric Acid Calcium POC WB Ioniz Calcium Phosphorus 1.4 L Magnesium Direct Bilirubin Lactate Dehydrogenase Troponin T Total Protein Albumin Globulin Urine Appearance Urine Glucose (UA) Urine Ketones Hyaline Casts Urine Mucus 01/10/22 01/10/22 01/10/22 09:30 09:30 06:10 WBC RBC Hgb Hct POC Hct MCV MCHC Plt Count MPV Neut % (Auto) Lymph % (Auto) Lymph # (Auto) Crenshaw # (Auto) Absolute Neutrophils PT INR APTT ABG Methemoglobin 0.1 L 0.2 L VBG pH 7.45 H VBG pCO2 36.0 L VBG pO2 109.7 H VBG HCO3 VBG Total CO2 VBG O2 Saturation 93.8 H VBG Base Excess VBG Lactic Acid Carboxyhemoglobin 3.9 H 4.0 H POC Sodium Sodium POC Potassium Potassium POC Chloride Chloride 95 L Carbon Dioxide POC Total CO2 Anion Gap POC BUN BUN 59 H Creatinine 2.8 H POC Creatinine Glucose 206 H POC Glucose Uric Acid Calcium POC WB Ioniz Calcium Phosphorus 2.0 L Magnesium Direct Bilirubin Lactate Dehydrogenase Troponin T Total Protein Albumin Globulin Urine Appearance Urine Glucose (UA) Urine Ketones Hyaline Casts Urine Mucus 01/10/22 01/10/22 01/10/22 06:10 06:09 01:42 WBC RBC Hgb Hct POC Hct MCV MCHC Plt Count MPV Neut % (Auto) Lymph % (Auto) Lymph # (Auto) Crenshaw # (Auto) Absolute Neutrophils PT 17.4 H INR 1.4 H APTT ABG Methemoglobin 0.2 L VBG pH VBG pCO2 VBG pO2 40.3 H VBG HCO3 23.7 L VBG Total CO2 VBG O2 Saturation 75.6 H VBG Base Excess VBG Lactic Acid Carboxyhemoglobin 3.5 H POC Sodium Sodium POC Potassium Potassium POC Chloride Chloride Carbon Dioxide POC Total CO2 Anion Gap POC BUN BUN 63 H Creatinine 3.0 H POC Creatinine Glucose 330 H POC Glucose Uric Acid Calcium POC WB Ioniz Calcium Phosphorus 2.2 L Magnesium Direct Bilirubin Lactate Dehydrogenase Troponin T Total Protein Albumin Globulin Urine Appearance Urine Glucose (UA) Urine Ketones Hyaline Casts Urine Mucus 01/10/22 01/09/22 01/09/22 01:42 22:17 22:17 WBC RBC Hgb Hct POC Hct MCV MCHC Plt Count MPV Neut % (Auto) Lymph % (Auto) Lymph # (Auto) C[place]shaw # (Auto) Absolute Neutrophils PT INR APTT ABG Methemoglobin 0.2 L VBG pH VBG pCO2 32.1 L VBG pO2 VBG HCO3 16.6 L VBG Total CO2 17.6 L VBG O2 Saturation 72.9 H VBG Base Excess -8 L VBG Lactic Acid Carboxyhemoglobin 5.3 H POC Sodium 131 L Sodium 132 L POC Potassium Potassium POC Chloride Chloride 91 L Carbon Dioxide POC Total CO2 20 L Anion Gap 18.0 H POC BUN 61 H BUN 69 H Creatinine 3.2 H POC Creatinine 3.5 H Glucose 404 H POC Glucose 610 H* Uric Acid Calcium POC WB Ioniz Calcium 1.14 L Phosphorus 2.0 L Magnesium Direct Bilirubin Lactate Dehydrogenase Troponin T Total Protein Albumin Globulin Urine Appearance Urine Glucose (UA) Urine Ketones Hyaline Casts Urine Mucus 01/09/22 01/09/22 01/09/22 22:17 22:17 19:55 WBC RBC Hgb Hct POC Hct MCV MCHC Plt Count MPV Neut % (Auto) Lymph % (Auto) Lymph # (Auto) C[place]shaw # (Auto) Absolute Neutrophils PT INR APTT ABG Methemoglobin VBG pH VBG pCO2 VBG pO2 VBG HCO3 VBG Total CO2 VBG O2 Saturation VBG Base Excess VBG Lactic Acid 4.5 H* Carboxyhemoglobin POC Sodium 130 L Sodium POC Potassium Potassium POC Chloride Chloride 90 L Carbon Dioxide 18 L POC Total CO2 16 L Anion Gap 25.0 H POC BUN 61 H BUN 65 H Creatinine 3.4 H POC Creatinine 3.5 H Glucose 637 H* POC Glucose 658 H* Uric Acid 9.7 H Calcium POC WB Ioniz Calcium 1.14 L Phosphorus Magnesium Direct Bilirubin Lactate Dehydrogenase Troponin T Total Protein Albumin Globulin Urine Appearance Urine Glucose (UA) Urine Ketones Hyaline Casts Urine Mucus 01/09/22 01/09/22 01/09/22 18:01 17:49 16:30 WBC RBC Hgb Hct POC Hct 35 L MCV MCHC Plt Count MPV Neut % (Auto) Lymph % (Auto) Lymph # (Auto) C[place]shaw # (Auto) Absolute Neutrophils PT INR APTT ABG Methemoglobin VBG pH VBG pCO2 VBG pO2 VBG HCO3 VBG Total CO2 VBG O2 Saturation VBG Base Excess VBG Lactic Acid Carboxyhemoglobin POC Sodium 128 L Sodium 125 L POC Potassium Potassium POC Chloride Chloride 86 L Carbon Dioxide 11 L POC Total CO2 14 L Anion Gap 28.0 H POC BUN 60 H BUN 65 H Creatinine 3.6 H POC Creatinine 3.4 H Glucose 801 H* POC Glucose > 700 H* Uric Acid Calcium POC WB Ioniz Calcium 1.09 L Phosphorus Magnesium Direct Bilirubin Lactate Dehydrogenase Troponin T Total Protein Albumin Globulin Urine Appearance Hazy A Urine Glucose (UA) >=500 A Urine Ketones 20 A Hyaline Casts 7 H Urine Mucus Few A 01/09/22 01/09/22 01/09/22 15:43 14:46 13:53 WBC RBC Hgb Hct POC Hct MCV MCHC Plt Count MPV Neut % (Auto) Lymph % (Auto) Lymph # (Auto) C[place]shaw # (Auto) Absolute Neutrophils PT INR APTT ABG Methemoglobin VBG pH VBG pCO2 VBG pO2 VBG HCO3 VBG Total CO2 VBG O2 Saturation VBG Base Excess VBG Lactic Acid Carboxyhemoglobin POC Sodium 126 L Sodium 125 L 123 L 123 L POC Potassium 5.2 H Potassium 5.2 H POC Chloride 95 L Chloride 83 L 82 L 81 L Carbon Dioxide 11 L 8 L* 7 L* POC Total CO2 11 L Anion Gap 31.0 H 33.0 H 35.0 H POC BUN 63 H BUN 64 H 64 H 62 H Creatinine 3.5 H 3.7 H 3.6 H POC Creatinine 3.4 H Glucose 921 H* 1001 H* 1003 H* POC Glucose > 700 H* Uric Acid Calcium POC WB Ioniz Calcium 1.15 L Phosphorus Magnesium Direct Bilirubin Lactate Dehydrogenase Troponin T Total Protein Albumin Globulin Urine Appearance Urine Glucose (UA) Urine Ketones Hyaline Casts Urine Mucus 01/09/22 01/09/22 01/09/22 12:54 12:54 09:49 WBC RBC Hgb Hct POC Hct MCV MCHC Plt Count MPV Neut % (Auto) Lymph % (Auto) Lymph # (Auto) C[place]shaw # (Auto) Absolute Neutrophils PT INR APTT ABG Methemoglobin VBG pH VBG pCO2 VBG pO2 VBG HCO3 VBG Total CO2 VBG O2 Saturation VBG Base Excess VBG Lactic Acid 4.4 H* 4.1 H* Carboxyhemoglobin POC Sodium Sodium 125 L POC Potassium Potassium 5.9 H* POC Chloride Chloride 81 L Carbon Dioxide 7 L* POC Total CO2 Anion Gap 37.0 H POC BUN BUN 65 H Creatinine 3.6 H POC Creatinine Glucose 1094 H* POC Glucose Uric Acid Calcium POC WB Ioniz Calcium Phosphorus Magnesium Direct Bilirubin Lactate Dehydrogenase Troponin T Total Protein Albumin Globulin Urine Appearance Urine Glucose (UA) Urine Ketones Hyaline Casts Urine Mucus 01/09/22 01/09/22 01/09/22 09:35 09:35 09:35 WBC RBC Hgb Hct POC Hct MCV MCHC Plt Count MPV Neut % (Auto) Lymph % (Auto) Lymph # (Auto) C[place]shaw # (Auto) Absolute Neutrophils PT INR APTT 43.7 H ABG Methemoglobin VBG pH VBG pCO2 VBG pO2 VBG HCO3 VBG Total CO2 VBG O2 Saturation VBG Base Excess VBG Lactic Acid Carboxyhemoglobin POC Sodium 118 L* Sodium 116 L* POC Potassium 6.6 H* Potassium 6.6 H* POC Chloride 89 L Chloride 73 L Carbon Dioxide 6 L* POC Total CO2 9 L* Anion Gap 37.0 H POC BUN 57 H BUN 67 H Creatinine 3.8 H POC Creatinine 3.7 H Glucose 1253 H* POC Glucose > 700 H* Uric Acid Calcium POC WB Ioniz Calcium 1.04 L Phosphorus Magnesium Direct Bilirubin Lactate Dehydrogenase Troponin T 0.03 H Total Protein Albumin Globulin Urine Appearance Urine Glucose (UA) Urine Ketones Hyaline Casts Urine Mucus 01/09/22 09:35 WBC 14.2 H RBC Hgb Hct POC Hct MCV 107.2 H MCHC 30.0 L Plt Count 107 L MPV 13.3 H Neut % (Auto) 90.8 H Lymph % (Auto) 5.5 L Lymph # (Auto) 0.78 L Crenshaw # (Auto) Absolute Neutrophils 12.84 H PT INR APTT ABG Methemoglobin VBG pH VBG pCO2 VBG pO2 VBG HCO3 VBG Total CO2 VBG O2 Saturation VBG Base Excess VBG Lactic Acid Carboxyhemoglobin POC Sodium Sodium POC Potassium Potassium POC Chloride Chloride Carbon Dioxide POC Total CO2 Anion Gap POC BUN BUN Creatinine POC Creatinine Glucose POC Glucose Uric Acid Calcium POC WB Ioniz Calcium Phosphorus Magnesium Direct Bilirubin Lactate Dehydrogenase Troponin T Total Protein Albumin Globulin Urine Appearance Urine Glucose (UA) Urine Ketones Hyaline Casts Urine Mucus Meds: Medications Cefepime HCl (Cefepime 2 Gm Vial) 2 gm IV Q24H [facility]; Protocol Last Admin: 01/11/22 09:29 Dose: 2 gm Documented by: Dextrose (Dextrose 50% 50 Ml Vial) 0 ml IV UD PRN PRN Reason: Per Sliding Scale Dextrose (Dextrose 50% 50 Ml Vial) 0 ml IV UD PRN PRN Reason: Per Sliding Scale Diagnostic Test (Pha) (Accu-Chek 1 Each Strip) 1 each FS Q4 [facility] Last Admin: 01/12/22 07:52 Dose: 1 each Documented by: Glucose (Dextrose 31 Gm Oral.Susp) 15 gm PO PRN PRN PRN Reason: Hypoglycemia Glucose (Dextrose 31 Gm Oral.Susp) 15 gm PO PRN PRN PRN Reason: Hypoglycemia Haloperidol Lactate (Haloperidol Lactate 5 Mg/Ml Vial) 2 mg IV Q4HP PRN PRN Reason: Agitation Last Admin: 01/12/22 01:37 Dose: 2 mg Documented by: Norepinephrine Bitartrate 16 (mg/ Sodium Chloride) 250 mls @ 9.375 mls/hr IV Q24H [facility]; Protocol Last Titration: 01/12/22 07:56 Dose: 0 mcg/min, 0 mls/hr Documented by: Insulin Human Regular 50 unit/ (Sodium Chloride) 100 mls @ 0 mls/hr IV DUR [facility]; Protocol Last Titration: 01/11/22 19:59 Dose: Infused Documented by: Sodium Chloride (Sodium Chloride 0.9%) 250 mls @ 20 mls/hr IV .[id number] [facility] Last Admin: 01/11/22 23:51 Dose: 20 mls/hr Documented by: Insulin Glargine (Insulin Glargine, Human 1 Unit/0.01 Ml) 15 unit SQ DAILY [facility] Last Admin: 01/11/22 10:48 Dose: 15 units Documented by: Insulin Human Lispro (Insulin Lispro 1 Unit/0.01 Ml Unit) 0 unit SQ Q4 [facility]; Protocol Last Admin: 01/12/22 07:52 Dose: 6 unit Documented by: Pantoprazole Sodium (Pantoprazole 40 Mg Vial) 40 mg IV BIDAC [facility] Last Admin: 01/12/22 07:52 Dose: 40 mg Documented by: Sodium Chloride (0.9 % Sodium Chloride 10 Ml Syringe) 10 ml IV Q8 [facility] Last Admin: 01/12/22 05:55 Dose: Not Given Documented by: Vancomycin HCl (Vancomycin Per Pharmacy) 1 order IV UD [facility]; Protocol ABG Interpretation ABG results: 01/09/22 01/10/22 01/10/22 22:17 01:42 06:10 ABG Methemoglobin 0.2 L 0.2 L 0.2 L VBG pH 7.33 7.37 7.45 H VBG pCO2 32.1 L 42.0 36.0 L VBG pO2 37.8 40.3 H 109.7 H VBG HCO3 16.6 L 23.7 L 24.6 VBG Total CO2 17.6 L 25.0 25.7 VBG O2 Saturation 72.9 H 75.6 H 93.8 H VBG Base Excess -8 L -2 1 01/10/22 01/10/22 01/10/22 09:30 14:11 17:38 ABG Methemoglobin 0.1 L 0.2 L 0.3 L VBG pH 7.38 7.47 H 7.40 VBG pCO2 46.1 38.0 L 40.5 L VBG pO2 33.2 73.8 H 36.3 VBG HCO3 26.8 26.8 24.4 VBG Total CO2 28.3 28.0 25.6 VBG O2 Saturation 67.4 91.0 H 68.6 VBG Base Excess 1 3 0 01/10/22 19:54 ABG Methemoglobin 0.3 L VBG pH 7.47 H VBG pCO2 33.1 L VBG pO2 94.4 H VBG HCO3 23.3 L VBG Total CO2 24.3 L VBG O2 Saturation 92.8 H VBG Base Excess 0 A/P Narrative A/P Narrative: A: #undifferentiated shock, possibly due to sepsis: -BC/UC neg #Encephalopathy: 2/2 delirium from a critical illness #Lactic acidosis: improving #DKA: Resolved #BRENDAN on CKD IV: improving #Acute hypoxic respiratory failure: 2/2 chf -now on room air #Acute on diastolic(III) chronic CHF w/Pulm Edema & Right Heart Failure & mod TR: f/u cxr in AM -echo with EF 50-55%, apical/basal WMA, diastolic III #Volume overload: IV fluid resuscitation #Concern for coffee ground emesis prior to admission: check FOBT #Thrombocytopenia: stable #Syncopal episode: #Atrial fibrillation: previously on Coumadin (reversed with IV vitamin K) #DM 2: #HTN/HLD: #Obesity: BMI 33 #hypomag/hypokal/hypophos: replace #Guarded prognosis Plan: -Vancomycin/cefepime IV for now, check mrsa screen -Levophed or albumin prn for hypotension -Lasix 40 mg IV today -Oxygen supplementation, wean as able -Started Lantus(titrate up once PO intake) and SSI-high q4 -Monitor hemoglobin/platelets -FOBT -Protonix IV twice daily for concern of GI bleed -Haldol IV prn for agitation, discontinue Ativan IV as needed -Hold home Coreg/losartan/hydrochlorothiazide/triamterene due to recent shock -Speech therapy consult -pt/ot when able -TF's start -Case management for likely SNF when stable -ppx: SCD, restart wafarin as along as PLT >50k and if FOBT neg / ppi CODE STATUS: DNR/DNI Time Spent With Patient Time: Total time spent is greater than 50% in coordination of care (as documented) at patient's floor/unit and/or counseling patient: Total time spent with greater than 50% in coordination of care (as documented) at patient's floor/unit and/or counseling patient:: 35 - 50 minutes
[2022-01-12] MEDS ORDERED: POTASSIUM PHOSPHATE 40 MEQ in DEXTROSE 5% IN WATER 500 ML IV ONE (09:00)
[2022-01-12] MEDS ORDERED: VANCOMYCIN 500 MG in 0.9 % SODIUM CHLORIDE 100 ML IV ONE (09:00)
[2022-01-12] MEDS: INSULIN GLARGINE, HUMAN 1 UNIT/0.01 ML SQ SCH (09:37)
[2022-01-12] MEDS: CEFEPIME 2 GM VIAL IV SCH (09:37)
[2022-01-12] MEDS: NOREPINEPHRINE BITARTRATE 16 MG in 0.9 % SODIUM CHLORIDE 234 ML IV SCH (13:35)
--- NOTE | 2022-01-12 13:36 | EKG ---
[facility] Test Date: 2022-01-09 Pat Name: Maribel Reaves Department: ICU Room: 120C Gender: Female Collator: : 1940 Requested By: Joaquin Correa Order Number: [id number] Reading MD: Amilcar Armstrong Measurements Intervals Goff Rate: 68 P: OR: QRS: 63 QRSD: 84 T: 203 QT: 408 QTc: 434 Interpretive Statements Atrial flutter Low voltage, extremity and precordial leads Probable anteroseptal infarct, old Nonspecific T abnormalities, lateral leads Electronically Signed On 01-12-2022 13:36:43 PDT by Amilcar Armstrong /store/[email or web address]/[id number]/[email or web address]/[id number]
[2022-01-12] MEDS: 0.9 % SODIUM CHLORIDE 250 ML IV SCH ×2 (14:47→21:25)
[2022-01-12] MEDS ORDERED: METOPROLOL TARTRATE 5 MG/5 ML VIAL IV PRN (16:11)
[2022-01-12] MEDS ORDERED: diphenhydrAMINE 50 MG/ML VIAL IV ONE (21:20)
[2022-01-12] MEDS ORDERED: HALOPERIDOL LACTATE 5 MG/ML VIAL IV ONE (21:21)
[2022-01-12] MEDS: MUPIROCIN OINT 2% 22GM NARES SCH (21:53)
[2022-01-12] MEDS ORDERED: LORazepam 2 MG/ML VIAL IV ONE (22:24)
[2022-01-12] MEDS ORDERED: LORazepam 2 MG/ML VIAL ONE (22:34)
[2022-01-13] MEDS: INSULIN LISPRO 1 UNIT/0.01 ML UNIT SQ SCH ×6 (00:48→19:45)
[2022-01-13] MEDS: HALOPERIDOL LACTATE 5 MG/ML VIAL IV PRN (00:50)
[2022-01-13] MEDS: 0.9 % SODIUM CHLORIDE 250 ML IV SCH (03:24)
[2022-01-13] MEDS: 0.9 % SODIUM CHLORIDE 10 ML SYRINGE IV SCH ×4 (05:35→21:04)
[2022-01-13 06:56] LABS: Basophils # (Auto) 0.04 K/mcL (0.00-0.30); Basophils % (Auto) 0.4 % (0.0-2.0); Eosinophils # (Auto) 0.23 K/mcL (0.00-0.70); Eosinophils % (Auto) 2.3 % (0.0-7.0); Hematocrit 40.1 % (34.1-44.9); Hemoglobin 13.2 g/dL (11.2-15.7); Lymphocytes # (Auto) 2.01 K/mcL (1.50-4.80); Mean Cell Volume 95.5 fL (80.0-100.0); Mean Corpuscular HGB Conc 32.9 g/dL (31.0-36.0); Mean Platelet Volume 12.3 fL (7.4-10.4); Monocytes # (Auto) 1.06 K/mcL (0.10-0.90); Monocytes % (Auto) 10.6 % (1.0-12.0); Neutrophils % (Auto) 66.7 % (38.0-78.0); Platelet Count 80 K/mcL (140-440)
[2022-01-13 07:00] LABS: INR 1.2 (0.9-1.1); Prothrombin Time 15.6 sec (11.9-14.5)
[2022-01-13 07:06] LABS: ALT/SGPT 12 U/L (<40); AST/SGOT 22 U/L (<32); Albumin 3.4 gm/dL (3.2-5.2); Albumin/Globulin Ratio 1.4 (1.0-2.3); Alkaline Phosphatase 77 U/L (39-117); Bilirubin,Direct 0.3 mg/dL (<0.3); Blood Urea Nitrogen 27 mg/dL (8-23); Calcium 8.3 mg/dL (8.6-10.4); Carbon Dioxide 29 mmol/L (22-30); Chloride 92 mmol/L (96-108); Globulin 2.4 gm/dL (2.2-3.7); Glomerular Filtration Rate 35; Glucose 106 mg/dL (70-105); Lactate Dehydrogenase 318 U/L (135-225); Phosphorous 2.4 mg/dL (2.5-4.5); Triglycerides 86 mg/dL (<150); Uric Acid 6.3 mg/dL (2.5-8.0)
[2022-01-13] MEDS: PANTOPRAZOLE 40 MG VIAL IV SCH ×2 (07:33→16:54)
--- NOTE | 2022-01-13 07:36 | XRay Report ---
INDICATION: f/u pulm edema TECHNIQUE: AP portable semiupright chest x-ray COMPARISON: Previous chest x-rays dated 01/10/2022, 01/09/2022 FINDINGS: Chest x-ray is improved. Pulmonary vascularity is improved with decreased pulmonary edema. Mild cardiomegaly, probably improved although present examination is performed in semiupright position and is compared with a supine study. No acute parenchymal infiltrate or mass. IMPRESSION: Improved chest x-ray as above Interpreted and Authenticated by: Darrell Wagner 01/13/22
[2022-01-13] MEDS: CEFEPIME 2 GM VIAL IV SCH (07:47)
[2022-01-13] MEDS: MUPIROCIN OINT 2% 22GM NARES SCH ×2 (07:47→21:03)
[2022-01-13] MEDS: INSULIN GLARGINE, HUMAN 1 UNIT/0.01 ML SQ SCH (07:47)
--- NOTE | 2022-01-13 08:13 | Internal Med Progress Note ---
SUBJECTIVE Subjective Patient information: Note initiated : 01/13/22 at 8:05 am Service Date, if different from initiated Date: [] Patient: Maribel Reaves 81 y/o F admitted on 01/09/22 for Low blood pressure, elevated blood sugar. Chief Complaint: [] Interval history: Interval history: Ms. Reaves is a 81 year old male with a history of hypertension, hyperlipidemia, insulin-dependent type 2 diabetes mellitus, atrial fibrillation on Coumadin, left ventricular diastolic dysfunction, pulmonary hypertension, chronic kidney disease stage IV who presented to the emergency department via EMS after a syncopal event and coffee ground emesis. In the emergency department the patient was found to be in shock, diabetic ketoacidosis as well as a lactic acidosis complicated by an acute on chronic kidney disease injury. There is concern for septic shock, the patient was started on broad-spectrum antibiotics, IV fluid resuscitation, Levophed for vasopressor support, and insulin infusion for diabetic ketoacidosis as well as a bicarbonate IV infusion for severe metabolic acidosis. Sepsis work-up included a urinalysis which was not suggestive of a UT I, chest x-ray which was suggestive of pulmonary vascular congestion, a CT abdomen pelvis showed bibasilar pulmonary parenchymal infiltrates that could represent pulmonary edema or interstitial pneumonia, cardiomegaly, previous cholecystectomy with prominent common bile duct without intrahepatic duct dilation, a distended fluid-filled stomach otherwise no clear reported evidence of an infectious process. Blood cultures were drawn in the ED. The patient required an right IJ central line placement. CODE STATUS was reviewed with the patient, the patient wishes to be DNR/DNI but is okay with medical management including vasopressor medications for shock. Hospital medicine was consulted for admission. 01/10 The patient was agitated overnight, pulled out the right IJ central line. Haldol prn started for agitation. Diabetic ketoacidosis resolved, transitioned off insulin infusion to subcutaneous Lantus and sliding scale Humalog. Off Levophed in the morning but was restarted for hypotension while the patient was sleeping. The patient is encephalopathic, CT head ordered and did not show any acute changes. INR down to 1.4, hemoglobin trend has been stable. Making urine and renal function improving. The patient has improved clinical but overall prognosis is still guarded, updated family and friends at the bedside. Overnight, the patient developed a anion gap and an insulin infusion was restarted. 01/11 Weaned off of Levophed, blood sugar stable on insulin infusion. Blood cultures showing no growth to date. Lactic acid decreased to 2.7. Continues on vancomycin and cefepime, renal function continues to improve. Chest x-ray showed pulmonary vascular congestion. 40 mg IV once given. Transthoracic echocardiogram ordered. Transition back to subcutaneous basal bolus insulin. 01/12 Patient became agitated and pulled out a lot of her lines overnight. Received Haldol. Drowsy this morning but does answer questions slowly. Unable to take p.o. at this point and will start tube feedings. Had to start vasopressor back on. Leukocytosis improved. Hypokalemia/ hypomagnesemia. Creatinine better. Awaiting stool sample for occult blood test. 01/13 Patient became quite agitated last night during a lines required IV Haldol Benadryl and subsequently Ativan to calm her. Patient appears to be resting comfortably and mildly drowsy but opens eyes and answers questions appropriately. Digital rectal exam reveals dark stool and was tested and is guaiac positive. Review of Systems: denies headache/fever/chills/nausea/vomiting/chest or abdominal pain/cough/dyspnea/diarrhea. Otherwise see above. Constitutional Vitals: Vital Signs Temp Pulse Resp BP Pulse Ox 97.1 F 113 H 20 110/67 100 01/13/22 04:00 01/12/22 15:01 01/13/22 07:26 01/13/22 07:15 01/13/22 07:26 Period Temp Pulse Resp BP Sys/Simpson Pulse Ox Last 24 Hr 97.0 F-97.9 F 79-116 13-42 57-149/35-113 84-100 Intake and Output 01/12/22 01/13/22 01/13/22 21:59 05:59 13:59 Intake Total 1054.0909 14 0 Output Total 715 565 120 Balance 339.0909 -551 -120 Weight 99.79 kg Intake & Output: Intake & Output 01/12/22 01/13/22 01/13/22 21:59 05:59 13:59 Intake Total 1054.0909 14 0 Output Total 715 565 120 Balance 339.0909 -551 -120 Weight 99.79 kg Intake: Nourishment/Supplement quantity 235 (ml) IV 819.0909 14 0 Sodium Chloride 0.9% 250 ml @ 250 20 mls/hr IV .[id number] [facility] Rx#: [id number] Levophed 16 mg In Sodium 10 14 0 Chloride 0.9% 234 ml @ 10 MCG/ MIN 9.375 mls/hr IV Q24H [facility] Rx #:[id number] Potassium Phosphate 40 Meq In 509.0909 Dextrose 5% in Water 500 ml @ 127.273 mls/hr IV ONCE ONE Rx#: [id number] Output: Urine Catheter Amount 715 565 120 Other: Meal Nourishment/Supplement Nourishment/Supplement name glucerna Urine Appearance Clear Clear Clear Uretheral (Hanks) Clear Clear Urine Color Bright Yellow Bright Yellow Dark Yellow Uretheral (Hanks) Bright Yellow Bright Yellow Stool Size Moderate Stool Color Black # of times incontinent of 1 Bowels Exam: General: awakens, No acute Distress, obese Eyes/N/T: EOMI, Head/Neck: neck supple, CV: RRR, No murmurs, normal s1/s2 Pulm: Clear b/l, no wheezing/rhonchi/rales Abd: soft, nontender, +BS x4 Ext: no clubbing/cyanosis, b/l LE 1+ edema Neuro: Drowsy awakens and answers questions appropriately, moves all extremities Skin: warm/dry OBJ DATA Labs CBC & Chem 7: 01/13/22 05:10 01/13/22 05:10 Labs: Abnormal Lab Results 01/13/22 01/13/22 01/13/22 05:10 05:10 05:10 WBC RBC Hgb Hct Plt Count 80 L MPV 12.3 H Neut % (Auto) Lymph % (Auto) Lymph # (Auto) [place] # (Auto) 1.06 H Absolute Neutrophils PT 15.6 H INR 1.2 H ABG Methemoglobin VBG pH VBG pCO2 VBG pO2 VBG HCO3 VBG Total CO2 VBG O2 Saturation VBG Lactic Acid Carboxyhemoglobin Sodium Potassium Chloride 92 L Carbon Dioxide Anion Gap BUN 27 H Creatinine 1.4 H Glucose 106 H Calcium 8.3 L Phosphorus 2.4 L Magnesium Direct Bilirubin 0.3 H Lactate Dehydrogenase 318 H Total Protein 5.8 L Albumin Globulin 01/12/22 01/12/22 01/11/22 05:19 05:19 15:36 WBC RBC Hgb Hct Plt Count 72 L MPV 11.4 H Neut % (Auto) Lymph % (Auto) 13.3 L Lymph # (Auto) 1.13 L [place] # (Auto) Absolute Neutrophils PT INR ABG Methemoglobin VBG pH VBG pCO2 VBG pO2 VBG HCO3 VBG Total CO2 VBG O2 Saturation VBG Lactic Acid Carboxyhemoglobin Sodium Potassium 3.1 L 3.1 L Chloride 92 L 89 L Carbon Dioxide 33 H Anion Gap BUN 35 H 42 H Creatinine 1.5 H 2.0 H Glucose 149 H 179 H Calcium 7.9 L 8.5 L Phosphorus 1.8 L Magnesium 1.5 L Direct Bilirubin 0.3 H Lactate Dehydrogenase 263 H Total Protein 5.0 L Albumin 3.0 L Globulin 2.0 L 01/11/22 01/11/22 01/11/22 05:34 05:34 01:12 WBC 12.1 H RBC 3.46 L Hgb 11.0 L Hct 33.4 L Plt Count 71 L MPV 11.9 H Neut % (Auto) 79.5 H Lymph % (Auto) 10.8 L Lymph # (Auto) 1.30 L [place] # (Auto) 1.13 H Absolute Neutrophils 9.62 H PT INR ABG Methemoglobin VBG pH VBG pCO2 VBG pO2 VBG HCO3 VBG Total CO2 VBG O2 Saturation VBG Lactic Acid 2.7 H Carboxyhemoglobin Sodium Potassium Chloride Carbon Dioxide Anion Gap BUN 48 H Creatinine 2.1 H Glucose 161 H Calcium 8.5 L Phosphorus Magnesium Direct Bilirubin Lactate Dehydrogenase 277 H Total Protein 5.1 L Albumin 3.0 L Globulin 2.1 L 01/11/22 01/10/22 01/10/22 01:12 20:04 19:54 WBC RBC Hgb Hct Plt Count MPV Neut % (Auto) Lymph % (Auto) Lymph # (Auto) [place] # (Auto) Absolute Neutrophils PT INR ABG Methemoglobin 0.3 L VBG pH 7.47 H VBG pCO2 33.1 L VBG pO2 94.4 H VBG HCO3 23.3 L VBG Total CO2 24.3 L VBG O2 Saturation 92.8 H VBG Lactic Acid 4.2 H* Carboxyhemoglobin 4.5 H Sodium Potassium 3.2 L Chloride Carbon Dioxide Anion Gap BUN 52 H Creatinine 2.5 H Glucose 161 H Calcium Phosphorus 2.3 L Magnesium Direct Bilirubin Lactate Dehydrogenase Total Protein Albumin Globulin 01/10/22 01/10/22 01/10/22 19:54 17:38 17:38 WBC RBC Hgb Hct Plt Count MPV Neut % (Auto) Lymph % (Auto) Lymph # (Auto) [place] # (Auto) Absolute Neutrophils PT INR ABG Methemoglobin 0.3 L VBG pH VBG pCO2 40.5 L VBG pO2 VBG HCO3 VBG Total CO2 VBG O2 Saturation VBG Lactic Acid Carboxyhemoglobin Sodium 132 L Potassium Chloride 93 L 93 L Carbon Dioxide Anion Gap 17.0 H 18.0 H BUN 56 H 56 H Creatinine 2.6 H 2.5 H Glucose 271 H 303 H Calcium Phosphorus Magnesium Direct Bilirubin Lactate Dehydrogenase Total Protein Albumin Globulin 01/10/22 01/10/22 01/10/22 14:11 14:11 14:09 WBC RBC Hgb Hct Plt Count MPV Neut % (Auto) Lymph % (Auto) Lymph # (Auto) [place] # (Auto) Absolute Neutrophils PT INR ABG Methemoglobin 0.2 L VBG pH 7.47 H VBG pCO2 38.0 L VBG pO2 73.8 H VBG HCO3 VBG Total CO2 VBG O2 Saturation 91.0 H VBG Lactic Acid 4.0 H* Carboxyhemoglobin 4.9 H Sodium Potassium Chloride 95 L Carbon Dioxide Anion Gap BUN 59 H Creatinine 2.6 H Glucose 176 H Calcium Phosphorus 1.4 L Magnesium Direct Bilirubin Lactate Dehydrogenase Total Protein Albumin Globulin 01/10/22 01/10/22 09:30 09:30 WBC RBC Hgb Hct Plt Count MPV Neut % (Auto) Lymph % (Auto) Lymph # (Auto) [place] # (Auto) Absolute Neutrophils PT INR ABG Methemoglobin 0.1 L VBG pH VBG pCO2 VBG pO2 VBG HCO3 VBG Total CO2 VBG O2 Saturation VBG Lactic Acid Carboxyhemoglobin 3.9 H Sodium Potassium Chloride 95 L Carbon Dioxide Anion Gap BUN 59 H Creatinine 2.8 H Glucose 206 H Calcium Phosphorus 2.0 L Magnesium Direct Bilirubin Lactate Dehydrogenase Total Protein Albumin Globulin Meds: Medications Cefepime HCl (Cefepime 2 Gm Vial) 2 gm IV Q24H [facility]; Protocol Last Admin: 01/13/22 07:47 Dose: 2 gm Documented by: Dextrose (Dextrose 50% 50 Ml Vial) 0 ml IV UD PRN PRN Reason: Per Sliding Scale Dextrose (Dextrose 50% 50 Ml Vial) 0 ml IV UD PRN PRN Reason: Per Sliding Scale Diagnostic Test (Pha) (Accu-Chek 1 Each Strip) 1 each FS Q4 [facility] Last Admin: 01/13/22 07:43 Dose: 1 each Documented by: Glucose (Dextrose 31 Gm Oral.Susp) 15 gm PO PRN PRN PRN Reason: Hypoglycemia Glucose (Dextrose 31 Gm Oral.Susp) 15 gm PO PRN PRN PRN Reason: Hypoglycemia Haloperidol Lactate (Haloperidol Lactate 5 Mg/Ml Vial) 2 mg IV Q4HP PRN PRN Reason: Agitation Last Admin: 01/13/22 00:50 Dose: 2 mg Documented by: Norepinephrine Bitartrate 16 (mg/ Sodium Chloride) 250 mls @ 9.375 mls/hr IV Q24H [facility]; Protocol Last Titration: 01/13/22 07:39 Dose: Infused Documented by: Insulin Human Regular 50 unit/ (Sodium Chloride) 100 mls @ 0 mls/hr IV DUR [facility]; Protocol Last Titration: 01/11/22 19:59 Dose: Infused Documented by: Sodium Chloride (Sodium Chloride 0.9%) 250 mls @ 20 mls/hr IV .[id number] [facility] Last Admin: 01/13/22 03:24 Dose: Not Given Documented by: Insulin Glargine (Insulin Glargine, Human 1 Unit/0.01 Ml) 15 unit SQ DAILY [facility] Last Admin: 01/13/22 07:47 Dose: 15 units Documented by: Insulin Human Lispro (Insulin Lispro 1 Unit/0.01 Ml Unit) 0 unit SQ Q4 [facility]; Protocol Last Admin: 01/13/22 07:47 Dose: 3 unit Documented by: Metoprolol Tartrate (Metoprolol Tartrate 5 Mg/5 Ml Vial) 5 mg IV Q4HP PRN PRN Reason: Tachyarrhythmias Last Admin: 01/12/22 16:14 Dose: 5 mg Documented by: Mupirocin (Mupirocin Oint 2% 22gm) 1 dose NARES BID [facility] Stop: 01/17/22 21:00 Last Admin: 01/13/22 07:47 Dose: 1 dose Documented by: Pantoprazole Sodium (Pantoprazole 40 Mg Vial) 40 mg IV BIDAC [facility] Last Admin: 01/13/22 07:33 Dose: 40 mg Documented by: Sodium Chloride (0.9 % Sodium Chloride 10 Ml Syringe) 10 ml IV Q8 [facility] Last Admin: 01/13/22 07:47 Dose: 10 ml Documented by: Vancomycin HCl (Vancomycin Per Pharmacy) 1 order IV UD [facility]; Protocol ABG Interpretation ABG results: 01/09/22 01/10/22 01/10/22 22:17 01:42 06:10 ABG Methemoglobin 0.2 L 0.2 L 0.2 L VBG pH 7.33 7.37 7.45 H VBG pCO2 32.1 L 42.0 36.0 L VBG pO2 37.8 40.3 H 109.7 H VBG HCO3 16.6 L 23.7 L 24.6 VBG Total CO2 17.6 L 25.0 25.7 VBG O2 Saturation 72.9 H 75.6 H 93.8 H VBG Base Excess -8 L -2 1 01/10/22 01/10/22 01/10/22 09:30 14:11 17:38 ABG Methemoglobin 0.1 L 0.2 L 0.3 L VBG pH 7.38 7.47 H 7.40 VBG pCO2 46.1 38.0 L 40.5 L VBG pO2 33.2 73.8 H 36.3 VBG HCO3 26.8 26.8 24.4 VBG Total CO2 28.3 28.0 25.6 VBG O2 Saturation 67.4 91.0 H 68.6 VBG Base Excess 1 3 0 01/10/22 19:54 ABG Methemoglobin 0.3 L VBG pH 7.47 H VBG pCO2 33.1 L VBG pO2 94.4 H VBG HCO3 23.3 L VBG Total CO2 24.3 L VBG O2 Saturation 92.8 H VBG Base Excess 0 A/P Narrative A/P Narrative: A: #undifferentiated shock, possibly due to sepsis: -BC/UC neg -did require levophed o/n for brief time #Encephalopathy/Delirium with severe agitation at times: -required haldol/benadryl/and subsequently Ativan #Lactic acidosis: improving #DKA: Resolved #BRENDAN on CKD IV: improved #Acute hypoxic respiratory failure: 2/2 chf -improved, but now back on O2 1-2L #Acute on diastolic(III) chronic CHF w/Pulm Edema& Right Heart Failure& mod TR: f/u cxr in AM -echo with EF 50-55%, apical/basal WMA, diastolic III -cxr improved #Volume overload: from IV fluid resuscitation #GI bleed, likely upper: report of coffee ground emesis [employer]: [place]OD with guaiac positive stool #Thrombocytopenia: stable #Syncopal episode: #Atrial fibrillation: previously on Coumadin (reversed with IV vitamin K on admit) #DM 2: #HTN/HLD: #Obesity: BMI 33 #hypomag/hypokal/hypophos: replace #Guarded prognosis: Plan: -Vancomycin/cefepime - deescalate, mrsa screen positive (decol protocol) -Levophed or albumin prn for hypotension -IV Lasix w/albumin today, monitor fluid balance -prn Oxygen supplementation -Lantus(titrate up once PO intake) and SSI-high q4 -Monitor hemoglobin/platelets -Protonix IV bid -discuss with GI/surgery for endoscopy when stable -Haldol IV prn for agitation, discontinue Ativan IV as needed -Hold home Coreg/losartan/hydrochlorothiazide/triamterene due to recent shock -pt/ot when able -encourage oral intake -Case management for likely SNF when stable -ppx: SCD (no chemical given GIB) / ppi CODE STATUS: DNR/DNI Time Spent With Patient Time: Total time spent is greater than 50% in coordination of care (as documented) at patient's floor/unit and/or counseling patient: Total time spent with greater than 50% in coordination of care (as documented) at patient's floor/unit and/or counseling patient:: 35 - 50 minutes
[2022-01-13] MEDS ORDERED: ALBUMIN HUMAN 12.5 GM/50 ML BAG IV ONE (09:24)
[2022-01-13] MEDS ORDERED: FUROSEMIDE 40 MG/4 ML VIAL IV ONE (09:24)
[2022-01-13 11:28] LABS: Vancomycin,Random 15.6 ug/mL
[2022-01-13] MEDS: NOREPINEPHRINE BITARTRATE 16 MG in 0.9 % SODIUM CHLORIDE 234 ML IV SCH (11:54)
[2022-01-14] MEDS ORDERED: DEXTROSE 50% 50 ML SYRINGE IV ONE (00:01)
[2022-01-14] MEDS: INSULIN LISPRO 1 UNIT/0.01 ML UNIT SQ SCH ×8 (00:05→20:42)
[2022-01-14] MEDS: 0.9 % SODIUM CHLORIDE 10 ML SYRINGE IV SCH ×3 (05:29→20:51)
[2022-01-14 06:50] LABS: ALT/SGPT 9 U/L (<40); AST/SGOT 16 U/L (<32); Albumin 3.1 gm/dL (3.2-5.2); Albumin/Globulin Ratio 1.5 (1.0-2.3); Alkaline Phosphatase 65 U/L (39-117); Bilirubin,Direct 0.3 mg/dL (<0.3); Bilirubin,Total 0.7 mg/dL (0.1-1.0); Blood Urea Nitrogen 27 mg/dL (8-23); Calcium 7.9 mg/dL (8.6-10.4); Carbon Dioxide 29 mmol/L (22-30); Chloride 92 mmol/L (96-108); Glomerular Filtration Rate 35; Glucose 163 mg/dL (70-105); Lactate Dehydrogenase 250 U/L (135-225); Phosphorous 2.7 mg/dL (2.5-4.5); Triglycerides 78 mg/dL (<150); Uric Acid 6.8 mg/dL (2.5-8.0)
[2022-01-14] MEDS ORDERED: NOREPINEPHRINE BITARTRATE 16 MG in 0.9 % SODIUM CHLORIDE 234 ML IV PRN (07:30)
[2022-01-14] MEDS: PANTOPRAZOLE 40 MG VIAL IV SCH ×2 (07:38→17:08)
[2022-01-14] MEDS ORDERED: ALBUMIN HUMAN 12.5 GM/50 ML BAG IV ONE (08:00)
--- NOTE | 2022-01-14 08:00 | Internal Med Progress Note ---
SUBJECTIVE Subjective Patient information: Note initiated : 01/14/22 at 7:58 am Service Date, if different from initiated Date: [] Patient: Maribel Reaves 81 y/o F admitted on 01/09/22 for Low blood pressure, elevated blood sugar. Chief Complaint: [] Interval history: Interval history: Ms. Reaves is a 81 year old male with a history of hypertension, hyperlipidemia, insulin-dependent type 2 diabetes mellitus, atrial fibrillation on Coumadin, left ventricular diastolic dysfunction, pulmonary hypertension, chronic kidney disease stage IV who presented to the emergency department via EMS after a syncopal event and coffee ground emesis. In the emergency department the patient was found to be in shock, diabetic ketoacidosis as well as a lactic acidosis complicated by an acute on chronic kidney disease injury. There is concern for septic shock, the patient was started on broad-spectrum antibiotics, IV fluid resuscitation, Levophed for vasopressor support, and insulin infusion for diabetic ketoacidosis as well as a bicarbonate IV infusion for severe metabolic acidosis. Sepsis work-up included a urinalysis which was not suggestive of a UT I, chest x-ray which was suggestive of pulmonary vascular congestion, a CT abdomen pelvis showed bibasilar pulmonary parenchymal infiltrates that could represent pulmonary edema or interstitial pneumonia, cardiomegaly, previous cholecystectomy with prominent common bile duct without intrahepatic duct dilation, a distended fluid-filled stomach otherwise no clear reported evidence of an infectious process. Blood cultures were drawn in the ED. The patient required an right IJ central line placement. CODE STATUS was reviewed with the patient, the patient wishes to be DNR/DNI but is okay with medical management including vasopressor medications for shock. Hospital medicine was consulted for admission. 01/10 The patient was agitated overnight, pulled out the right IJ central line. Haldol prn started for agitation. Diabetic ketoacidosis resolved, transitioned off insulin infusion to subcutaneous Lantus and sliding scale Humalog. Off Levophed in the morning but was restarted for hypotension while the patient was sleeping. The patient is encephalopathic, CT head ordered and did not show any acute changes. INR down to 1.4, hemoglobin trend has been stable. Making urine and renal function improving. The patient has improved clinical but overall prognosis is still guarded, updated family and friends at the bedside. Overnight, the patient developed a anion gap and an insulin infusion was restarted. 01/11 Weaned off of Levophed, blood sugar stable on insulin infusion. Blood cultures showing no growth to date. Lactic acid decreased to 2.7. Continues on vancomycin and cefepime, renal function continues to improve. Chest x-ray showed pulmonary vascular congestion. 40 mg IV once given. Transthoracic echocardiogram ordered. Transition back to subcutaneous basal bolus insulin. 01/12 Patient became agitated and pulled out a lot of her lines overnight. Received Haldol. Drowsy this morning but does answer questions slowly. Unable to take p.o. at this point and will start tube feedings. Had to start vasopressor back on. Leukocytosis improved. Hypokalemia/ hypomagnesemia. Creatinine better. Awaiting stool sample for occult blood test. 01/13 Patient became quite agitated last night during a lines required IV Haldol Benadryl and subsequently Ativan to calm her. Patient appears to be resting comfortably and mildly drowsy but opens eyes and answers questions appropriately. Digital rectal exam reveals dark stool and was tested and is guaiac positive. 01/14 Blood pressure low last night but not enough to require Levophed. Patient started to eat a little bit more yesterday. No sedation needed for agitation last night. Patient drowsy this morning but does answer questions appropriately. Review of Systems: denies headache/fever/chills/nausea/vomiting/chest or abdominal pain/cough/dyspnea/diarrhea. Otherwise see above. Constitutional Vitals: Vital Signs Temp Pulse Resp BP Pulse Ox 97.8 F 113 H 27 H 84/58 96 01/14/22 04:06 01/12/22 15:01 01/14/22 07:26 01/14/22 07:03 01/14/22 07:26 Period Temp Pulse Resp BP Sys/Simpson Pulse Ox Last 24 Hr 96.1 F-99.8 F 15-47 76-119/42-77 82-99 Intake and Output 01/13/22 01/14/22 01/14/22 21:59 05:59 13:59 Intake Total 557 100 Output Total 680 465 60 Balance -123 -365 -60 Weight 99.025 kg Intake & Output: Intake & Output 01/13/22 01/14/22 01/14/22 21:59 05:59 13:59 Intake Total 557 100 Output Total 680 465 60 Balance -123 -365 -60 Weight 99.025 kg Intake: Nourishment/Supplement quantity 437 (ml) Oral 120 100 Output: Urine Catheter Amount 680 465 60 Other: Meal Dinner Percent of Meal Consumed 50% Nourishment/Supplement name Glucsanjana Urine Appearance Clear Clear Clear Uretheral (Hanks) Clear Clear Urine Color Bright Yellow Dark Yellow Bright Yellow Uretheral (Hanks) Bright Yellow Bright Yellow Urine Odor Normal Exam: General: awakens, No acute Distress, obese Eyes/N/T: EOMI, Head/Neck: neck supple, CV: irreg irreg, No murmurs, normal s1/s2 Pulm: Clear b/l, no wheezing/rhonchi/rales Abd: soft, nontender, +BS x4 Ext: no clubbing/cyanosis, b/l LE 1+ edema Neuro: Drowsy but awakens and answers questions appropriately, moves all extremities Skin: warm/dry OBJ DATA Labs CBC & Chem 7: 01/13/22 05:10 01/14/22 05:08 Labs: Abnormal Lab Results 01/14/22 01/13/22 01/13/22 05:08 05:10 05:10 Plt Count MPV Lymph % (Auto) Lymph # (Auto) [place] # (Auto) PT 15.6 H INR 1.2 H Potassium Chloride 92 L 92 L Carbon Dioxide BUN 27 H 27 H Creatinine 1.4 H 1.4 H Glucose 163 H 106 H Calcium 7.9 L 8.3 L Phosphorus 2.4 L Magnesium Direct Bilirubin 0.3 H 0.3 H Lactate Dehydrogenase 250 H 318 H Total Protein 5.1 L 5.8 L Albumin 3.1 L Globulin 2.0 L 01/13/22 01/12/22 01/12/22 05:10 05:19 05:19 Plt Count 80 L 72 L MPV 12.3 H 11.4 H Lymph % (Auto) 13.3 L Lymph # (Auto) 1.13 L [place] # (Auto) 1.06 H PT INR Potassium 3.1 L Chloride 92 L Carbon Dioxide BUN 35 H Creatinine 1.5 H Glucose 149 H Calcium 7.9 L Phosphorus Magnesium 1.5 L Direct Bilirubin 0.3 H Lactate Dehydrogenase 263 H Total Protein 5.0 L Albumin 3.0 L Globulin 2.0 L 01/11/22 15:36 Plt Count MPV Lymph % (Auto) Lymph # (Auto) [place] # (Auto) PT INR Potassium 3.1 L Chloride 89 L Carbon Dioxide 33 H BUN 42 H Creatinine 2.0 H Glucose 179 H Calcium 8.5 L Phosphorus 1.8 L Magnesium Direct Bilirubin Lactate Dehydrogenase Total Protein Albumin Globulin Meds: Medications Cefepime HCl (Cefepime 2 Gm Vial) 2 gm IV Q12H [facility]; Protocol Dextrose (Dextrose 50% 50 Ml Vial) 0 ml IV UD PRN PRN Reason: Per Sliding Scale Diagnostic Test (Pha) (Accu-Chek 1 Each Strip) 1 each FS Q4 [facility] Last Admin: 01/14/22 07:45 Dose: 1 each Documented by: Glucose (Dextrose 31 Gm Oral.Susp) 15 gm PO PRN PRN PRN Reason: Hypoglycemia Haloperidol Lactate (Haloperidol Lactate 5 Mg/Ml Vial) 2 mg IV Q4HP PRN PRN Reason: Agitation Last Admin: 01/13/22 00:50 Dose: 2 mg Documented by: Insulin Human Regular 50 unit/ (Sodium Chloride) 100 mls @ 0 mls/hr IV DUR [facility]; Protocol Last Titration: 01/11/22 19:59 Dose: Infused Documented by: Norepinephrine Bitartrate 16 (mg/ Sodium Chloride) 250 mls @ 9.375 mls/hr IV Q24HP PRN; Protocol PRN Reason: Hypotension Insulin Glargine (Insulin Glargine, Human 1 Unit/0.01 Ml) 15 unit SQ DAILY [facility] Last Admin: 01/13/22 07:47 Dose: 15 units Documented by: Insulin Human Lispro (Insulin Lispro 1 Unit/0.01 Ml Unit) 0 unit SQ Q4 [facility]; Protocol Last Admin: 01/14/22 04:00 Dose: Not Given Documented by: Metoprolol Tartrate (Metoprolol Tartrate 5 Mg/5 Ml Vial) 5 mg IV Q4HP PRN PRN Reason: Tachyarrhythmias Last Admin: 01/12/22 16:14 Dose: 5 mg Documented by: Mupirocin (Mupirocin Oint 2% 22gm) 1 dose NARES BID [facility] Stop: 01/17/22 21:00 Last Admin: 01/13/22 21:03 Dose: 1 dose Documented by: Pantoprazole Sodium (Pantoprazole 40 Mg Vial) [facility] Last Admin: 01/14/22 07:38 Dose: 40 mg Documented by: Sodium Chloride (0.9 % Sodium Chloride 10 Ml Syringe) 10 ml IV Q8 [facility] Last Admin: 01/14/22 05:29 Dose: 10 ml Documented by: ABG Interpretation ABG results: 01/09/22 01/10/22 01/10/22 22:17 01:42 06:10 ABG Methemoglobin 0.2 L 0.2 L 0.2 L VBG pH 7.33 7.37 7.45 H VBG pCO2 32.1 L 42.0 36.0 L VBG pO2 37.8 40.3 H 109.7 H VBG HCO3 16.6 L 23.7 L 24.6 VBG Total CO2 17.6 L 25.0 25.7 VBG O2 Saturation 72.9 H 75.6 H 93.8 H VBG Base Excess -8 L -2 1 01/10/22 01/10/22 01/10/22 09:30 14:11 17:38 ABG Methemoglobin 0.1 L 0.2 L 0.3 L VBG pH 7.38 7.47 H 7.40 VBG pCO2 46.1 38.0 L 40.5 L VBG pO2 33.2 73.8 H 36.3 VBG HCO3 26.8 26.8 24.4 VBG Total CO2 28.3 28.0 25.6 VBG O2 Saturation 67.4 91.0 H 68.6 VBG Base Excess 1 3 0 01/10/22 19:54 ABG Methemoglobin 0.3 L VBG pH 7.47 H VBG pCO2 33.1 L VBG pO2 94.4 H VBG HCO3 23.3 L VBG Total CO2 24.3 L VBG O2 Saturation 92.8 H VBG Base Excess 0 A/P Narrative A/P Narrative: A: #undifferentiated shock, possibly due to sepsis: -BC/UC neg -did require levophed the other night #Encephalopathy/Delirium with severe agitation at times: likely superimposed on MCI or Dementia of some degree -has required haldol/benadryl/and subsequently Ativan at times -CT brain with cerebral atrophy and small vessel ischemic dz, and old infarct #Lactic acidosis: improved #DKA: Resolved #BRENDAN on CKD IV: improved #Acute hypoxic respiratory failure: 2/2 chf -improved, but now back on O2 1-2L #Acute on diastolic(III) chronic CHF w/Pulm Edema& Right Heart Failure& mod TR: f/u cxr in AM -echo with EF 50-55%, apical/basal WMA, diastolic III -cxr improved #Volume overload: from IV fluid resuscitation #GI bleed, likely upper: report of coffee ground emesis [employer]: LINWOOD with guaiac positive stool -H&H stable #Thrombocytopenia: stable #Syncopal episode: #Atrial fibrillation: previously on Coumadin (reversed with IV vitamin K on admit) #h/o CVA: per incidental finding on CT brain #DM 2: #HTN/HLD: #Obesity: BMI 33 #hypomag/hypokal/hypophos: replace #Guarded prognosis: Plan: -cefepime, vanco stopped -Levophed or albumin prn for hypotension -hold IV Lasix today -prn Oxygen supplementation -zyprexa qhs, Haldol IV prn for agitation, discontinue Ativan IV as needed -Lantus(titrate up once better PO intake) and SSI -Monitor hemoglobin/platelets -Protonix IV bid -discuss with GI/surgery for endoscopy when stable -Hold home Coreg/losartan/hydrochlorothiazide/triamterene due to recent shock -pt/ot when able -encourage oral intake -Case management for likely SNF when stable -ppx: SCD (no chemical given GIB) / ppi CODE STATUS: DNR/DNI Time Spent With Patient Time: Total time spent is greater than 50% in coordination of care (as documented) at patient's floor/unit and/or counseling patient: Total time spent with greater than 50% in coordination of care (as documented) at patient's floor/unit and/or counseling patient:: 25 - 35 minutes
[2022-01-14] MEDS: CEFEPIME 2 GM VIAL IV SCH ×2 (08:30→20:50)
[2022-01-14] MEDS: INSULIN GLARGINE, HUMAN 1 UNIT/0.01 ML SQ SCH (08:30)
[2022-01-14] MEDS: MUPIROCIN OINT 2% 22GM NARES SCH ×2 (08:31→20:49)
[2022-01-14] MEDS: ACETAMINOPHEN 1,000 MG/100 ML BAG IV PRN (12:15)
[2022-01-14] MEDS ORDERED: traMADol 50 MG TABLET PO ONE (13:43)
[2022-01-14] MEDS: HALOPERIDOL LACTATE 5 MG/ML VIAL IV PRN ×2 (14:30→23:07)
[2022-01-14] MEDS: OLANZapine 5 MG TABLET PO SCH (19:11)
[2022-01-15] MEDS: 0.9 % SODIUM CHLORIDE 10 ML SYRINGE IV SCH ×5 (05:33→21:30)
[2022-01-15] MEDS: PANTOPRAZOLE 40 MG VIAL IV SCH (07:45)
[2022-01-15] MEDS: INSULIN LISPRO 1 UNIT/0.01 ML UNIT SQ SCH ×4 (07:52→20:56)
--- NOTE | 2022-01-15 08:09 | Internal Med Progress Note ---
SUBJECTIVE Subjective Patient information: Note initiated : 01/15/22 at 8:04 am Service Date, if different from initiated Date: [] Patient: Maribel Reaves 81 y/o F admitted on 01/09/22 for Low blood pressure, elevated blood sugar. Chief Complaint: [] Interval history: Interval history: Ms. Reaves is a 81 year old male with a history of hypertension, hyperlipidemia, insulin-dependent type 2 diabetes mellitus, atrial fibrillation on Coumadin, left ventricular diastolic dysfunction, pulmonary hypertension, chronic kidney disease stage IV who presented to the emergency department via EMS after a syncopal event and coffee ground emesis. In the emergency department the patient was found to be in shock, diabetic ketoacidosis as well as a lactic acidosis complicated by an acute on chronic kidney disease injury. There is concern for septic shock, the patient was started on broad-spectrum antibiotics, IV fluid resuscitation, Levophed for vasopressor support, and insulin infusion for diabetic ketoacidosis as well as a bicarbonate IV infusion for severe metabolic acidosis. Sepsis work-up included a urinalysis which was not suggestive of a UT I, chest x-ray which was suggestive of pulmonary vascular congestion, a CT abdomen pelvis showed bibasilar pulmonary parenchymal infiltrates that could represent pulmonary edema or interstitial pneumonia, cardiomegaly, previous cholecystectomy with prominent common bile duct without intrahepatic duct dilation, a distended fluid-filled stomach otherwise no clear reported evidence of an infectious process. Blood cultures were drawn in the ED. The patient required an right IJ central line placement. CODE STATUS was reviewed with the patient, the patient wishes to be DNR/DNI but is okay with medical management including vasopressor medications for shock. Hospital medicine was consulted for admission. 01/10 The patient was agitated overnight, pulled out the right IJ central line. Haldol prn started for agitation. Diabetic ketoacidosis resolved, transitioned off insulin infusion to subcutaneous Lantus and sliding scale Humalog. Off Levophed in the morning but was restarted for hypotension while the patient was sleeping. The patient is encephalopathic, CT head ordered and did not show any acute changes. INR down to 1.4, hemoglobin trend has been stable. Making urine and renal function improving. The patient has improved clinical but overall prognosis is still guarded, updated family and friends at the bedside. Overnight, the patient developed a anion gap and an insulin infusion was restarted. 01/11 Weaned off of Levophed, blood sugar stable on insulin infusion. Blood cultures showing no growth to date. Lactic acid decreased to 2.7. Continues on vancomycin and cefepime, renal function continues to improve. Chest x-ray showed pulmonary vascular congestion. 40 mg IV once given. Transthoracic echocardiogram ordered. Transition back to subcutaneous basal bolus insulin. 01/12 Patient became agitated and pulled out a lot of her lines overnight. Received Haldol. Drowsy this morning but does answer questions slowly. Unable to take p.o. at this point and will start tube feedings. Had to start vasopressor back on. Leukocytosis improved. Hypokalemia/ hypomagnesemia. Creatinine better. Awaiting stool sample for occult blood test. 01/13 Patient became quite agitated last night during a lines required IV Haldol Benadryl and subsequently Ativan to calm her. Patient appears to be resting comfortably and mildly drowsy but opens eyes and answers questions appropriately. Digital rectal exam reveals dark stool and was tested and is guaiac positive. 01/14 Blood pressure low last night but not enough to require Levophed. Patient started to eat a little bit more yesterday. No sedation needed for agitation last night. Patient drowsy this morning but does answer questions appropriately. 01/15 Patient did not require any Levophed last night. However she did require some IV Haldol for agitation and pulling at lines. Seems calm and cooperative this morning. Stable on sliding scale insulin no need for drip. Review of Systems: denies headache/fever/chills/nausea/vomiting/chest or abdominal pain/cough/dyspnea/diarrhea. Otherwise see above. Constitutional Vitals: Vital Signs Temp Pulse Resp BP Pulse Ox 97.8 F 113 H 25 H 131/72 90 01/15/22 04:10 01/12/22 15:01 01/15/22 07:41 01/15/22 07:23 01/15/22 07:41 Period Temp Pulse Resp BP Sys/Simpson Pulse Ox Last 24 Hr 96.7 F-97.8 F 10-61 88-134/49-88 89-99 Intake and Output 01/14/22 01/15/22 01/15/22 21:59 05:59 13:59 Intake Total 150 75 Output Total 605 495 225 Balance -455 -420 -225 Weight 98.656 kg Intake & Output: Intake & Output 01/14/22 01/15/22 01/15/22 21:59 05:59 13:59 Intake Total 150 75 Output Total 605 495 225 Balance -690 -420 -723 Weight 98.656 kg Intake: Oral 150 75 Output: Urine Catheter Amount 605 495 225 Other: Urine Appearance Clear Clear Clear Urine Color Bright Yellow Dark Yellow Bright Yellow Exam: General: awakens, No acute Distress, obese Eyes/N/T: EOMI, Head/Neck: neck supple, CV: irreg irreg, No murmurs, normal s1/s2 Pulm: Clear b/l, no wheezing/rhonchi/rales Abd: soft, nontender, +BS x4 Ext: no clubbing/cyanosis, b/l LE 1+ edema Neuro: Sleeping but easily awakens and answers questions appropriately, moves all extremities Skin: warm/dry OBJ DATA Labs CBC & Chem 7: 01/13/22 05:10 01/14/22 05:08 Labs: Abnormal Lab Results 01/14/22 01/13/22 01/13/22 05:08 05:10 05:10 Plt Count MPV [place] # (Auto) PT 15.6 H INR 1.2 H Chloride 92 L 92 L BUN 27 H 27 H Creatinine 1.4 H 1.4 H Glucose 163 H 106 H Calcium 7.9 L 8.3 L Phosphorus 2.4 L Direct Bilirubin 0.3 H 0.3 H Lactate Dehydrogenase 250 H 318 H Total Protein 5.1 L 5.8 L Albumin 3.1 L Globulin 2.0 L 01/13/22 05:10 Plt Count 80 L MPV 12.3 H [place] # (Auto) 1.06 H PT INR Chloride BUN Creatinine Glucose Calcium Phosphorus Direct Bilirubin Lactate Dehydrogenase Total Protein Albumin Globulin Meds: Medications Cefepime HCl (Cefepime 2 Gm Vial) 2 gm IV Q12H [facility]; Protocol Last Admin: 01/14/22 20:50 Dose: 2 gm Documented by: Dextrose (Dextrose 50% 50 Ml Vial) 0 ml IV UD PRN PRN Reason: Per Sliding Scale Diagnostic Test (Pha) (Accu-Chek 1 Each Strip) 1 each FS ACHS [facility] Last Admin: 01/15/22 07:52 Dose: 1 each Documented by: Glucose (Dextrose 31 Gm Oral.Susp) 15 gm PO PRN PRN PRN Reason: Hypoglycemia Haloperidol Lactate (Haloperidol Lactate 5 Mg/Ml Vial) 2 mg IV Q4HP PRN PRN Reason: Agitation Last Admin: 01/14/22 23:07 Dose: 2 mg Documented by: Insulin Human Regular 50 unit/ (Sodium Chloride) 100 mls @ 0 mls/hr IV DUR [facility]; Protocol Last Titration: 01/11/22 19:59 Dose: Infused Documented by: Norepinephrine Bitartrate 16 (mg/ Sodium Chloride) 250 mls @ 9.375 mls/hr IV Q24HP PRN; Protocol PRN Reason: Hypotension Acetaminophen (Ofirmev) 1,000 mg in 100 mls @ 200 mls/hr IV Q6HP PRN; Protocol PRN Reason: PAIN/FEVER > 101 Last Infusion: 01/14/22 12:59 Dose: Infused Documented by: Insulin Glargine (Insulin Glargine, Human 1 Unit/0.01 Ml) 15 unit SQ DAILY [facility] Last Admin: 01/14/22 08:30 Dose: 15 units Documented by: Insulin Human Lispro (Insulin Lispro 1 Unit/0.01 Ml Unit) 0 unit SQ [facility]; Protocol Last Admin: 01/15/22 07:52 Dose: 4 units Documented by: Metoprolol Tartrate (Metoprolol Tartrate 5 Mg/5 Ml Vial) 5 mg IV Q4HP PRN PRN Reason: Tachyarrhythmias Last Admin: 01/12/22 16:14 Dose: 5 mg Documented by: Mupirocin (Mupirocin Oint 2% 22gm) 1 dose NARES BID [facility] Stop: 01/17/22 21:00 Last Admin: 01/14/22 20:49 Dose: 1 dose Documented by: Olanzapine (Olanzapine 5 Mg Tablet) 5 mg PO HS [facility] Last Admin: 01/14/22 19:11 Dose: 5 mg Documented by: Pantoprazole Sodium (Pantoprazole 40 Mg Vial) 40 mg IV BIDAC [facility] Last Admin: 01/15/22 07:45 Dose: 40 mg Documented by: Sodium Chloride (0.9 % Sodium Chloride 10 Ml Syringe) 10 ml IV Q8 [facility] Last Admin: 01/15/22 05:33 Dose: 10 ml Documented by: ABG Interpretation ABG results: 01/09/22 01/10/22 01/10/22 22:17 01:42 06:10 ABG Methemoglobin 0.2 L 0.2 L 0.2 L VBG pH 7.33 7.37 7.45 H VBG pCO2 32.1 L 42.0 36.0 L VBG pO2 37.8 40.3 H 109.7 H VBG HCO3 16.6 L 23.7 L 24.6 VBG Total CO2 17.6 L 25.0 25.7 VBG O2 Saturation 72.9 H 75.6 H 93.8 H VBG Base Excess -8 L -2 1 01/10/22 01/10/22 01/10/22 09:30 14:11 17:38 ABG Methemoglobin 0.1 L 0.2 L 0.3 L VBG pH 7.38 7.47 H 7.40 VBG pCO2 46.1 38.0 L 40.5 L VBG pO2 33.2 73.8 H 36.3 VBG HCO3 26.8 26.8 24.4 VBG Total CO2 28.3 28.0 25.6 VBG O2 Saturation 67.4 91.0 H 68.6 VBG Base Excess 1 3 0 01/10/22 19:54 ABG Methemoglobin 0.3 L VBG pH 7.47 H VBG pCO2 33.1 L VBG pO2 94.4 H VBG HCO3 23.3 L VBG Total CO2 24.3 L VBG O2 Saturation 92.8 H VBG Base Excess 0 A/P Narrative A/P Narrative: A: #undifferentiated shock, possibly due to sepsis or simply volume depletion from DKA: -BC/UC neg -no levophed for 2nd night #Encephalopathy/Delirium with severe agitation at times: likely superimposed on MCI or Dementia of some degree -has required haldol/benadryl/and subsequently Ativan at times -CT brain with cerebral atrophy and small vessel ischemic dz, and old infarct #Likely underlying Dementia with sundowning &/or ICU delerium: #Lactic acidosis: improved #DKA: Resolved #BRENDAN on CKD IV: improved #Acute hypoxic respiratory failure: 2/2 chf -improved, but now back on O2 1-2L #Acute on diastolic(III) chronic CHF w/Pulm Edema& Right Heart Failure& mod TR: f/u cxr in AM -echo with EF 50-55%, apical/basal WMA, diastolic III -cxr improved #Volume overload: from IV fluid resuscitation #GI bleed, likely upper: report of coffee ground emesis [employer]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: LINWOOD with guaiac positive stool -H&H stable #Thrombocytopenia: stable #Syncopal episode: #Atrial fibrillation: previously on Coumadin (reversed with IV vitamin K on admit) #h/o CVA: per incidental finding on CT brain #DM 2: #HTN/HLD: #Obesity: BMI 33 #hypomag/hypokal/hypophos: replace #Guarded prognosis: Plan: -cefepime d/c, no source of infection found -hold IV Lasix today -prn Oxygen supplementation -zyprexa qhs, Haldol IV prn for agitation, discontinue Ativan IV as needed -Lantus(titrate up once better PO intake) and SSI -Monitor hemoglobin/platelets -Protonix bid -discuss with GI/surgery for endoscopy when stable -Hold home Coreg/losartan/hydrochlorothiazide/triamterene due to recent shock -pt/ot when able -encourage oral intake -Case management for likely SNF when stable -ppx: SCD (no chemical given GIB) / ppi CODE STATUS: DNR/DNI Time Spent With Patient Time: Total time spent is greater than 50% in coordination of care (as documented) at patient's floor/unit and/or counseling patient: Total time spent with greater than 50% in coordination of care (as documented) at patient's floor/unit and/or counseling patient:: 25 - 35 minutes
[2022-01-15] MEDS: INSULIN GLARGINE, HUMAN 1 UNIT/0.01 ML SQ SCH (09:21)
[2022-01-15] MEDS: CEFEPIME 2 GM VIAL IV SCH (09:22)
[2022-01-15] MEDS: MUPIROCIN OINT 2% 22GM NARES SCH ×2 (09:22→21:03)
[2022-01-15 11:20] LABS: Hematocrit 37.5 % (34.1-44.9); Hemoglobin 12.5 g/dL (11.2-15.7)
[2022-01-15] MEDS: ACETAMINOPHEN 1,000 MG/100 ML BAG IV PRN (12:59)
[2022-01-15] MEDS: POLYETHYLENE GLYCOL 3350 17 GM PACKET PO PRN (15:17)
[2022-01-15] MEDS: traMADol 50 MG TABLET PO PRN (15:52)
[2022-01-15] MEDS: PANTOPRAZOLE 40 MG PACKET PO SCH (15:53)
[2022-01-15] MEDS ORDERED: MAGNESIUM SULFATE 8.12 MEQ in DEXTROSE 5% IN WATER 50 ML IV ONE (20:02)
[2022-01-15] MEDS ORDERED: MAGNESIUM SULFATE 8.12 MEQ/2 ML VIAL ONE (20:35)
[2022-01-15] MEDS: OLANZapine 5 MG TABLET PO SCH (20:56)
[2022-01-16] MEDS: 0.9 % SODIUM CHLORIDE 10 ML SYRINGE IV SCH ×4 (05:38→22:00)
[2022-01-16 06:49] LABS: Hematocrit 34.8 % (34.1-44.9); Hemoglobin 11.9 g/dL (11.2-15.7)
[2022-01-16] MEDS: INSULIN LISPRO 1 UNIT/0.01 ML UNIT SQ SCH ×4 (07:18→20:54)
[2022-01-16 07:19] LABS: Blood Urea Nitrogen 20 mg/dL (8-23); Calcium 9.3 mg/dL (8.6-10.4); Carbon Dioxide 29 mmol/L (22-30); Chloride 99 mmol/L (96-108); Glomerular Filtration Rate 38; Glucose 123 mg/dL (70-105)
[2022-01-16] MEDS: PANTOPRAZOLE 40 MG PACKET PO SCH ×2 (07:35→16:56)
--- NOTE | 2022-01-16 07:53 | Internal Med Progress Note ---
SUBJECTIVE Subjective Patient information: Note initiated : 01/16/22 at 7:49 am Service Date, if different from initiated Date: [] Patient: Maribel Reaves 81 y/o F admitted on 01/09/22 for Low blood pressure, elevated blood sugar. Chief Complaint: [] Interval history: Interval history: Ms. Reaves is a 81 year old male with a history of hypertension, hyperlipidemia, insulin-dependent type 2 diabetes mellitus, atrial fibrillation on Coumadin, left ventricular diastolic dysfunction, pulmonary hypertension, chronic kidney disease stage IV who presented to the emergency department via EMS after a syncopal event and coffee ground emesis. In the emergency department the patient was found to be in shock, diabetic ketoacidosis as well as a lactic acidosis complicated by an acute on chronic kidney disease injury. There is concern for septic shock, the patient was started on broad-spectrum antibiotics, IV fluid resuscitation, Levophed for vasopressor support, and insulin infusion for diabetic ketoacidosis as well as a bicarbonate IV infusion for severe metabolic acidosis. Sepsis work-up included a urinalysis which was not suggestive of a UT I, chest x-ray which was suggestive of pulmonary vascular congestion, a CT abdomen pelvis showed bibasilar pulmonary parenchymal infiltrates that could represent pulmonary edema or interstitial pneumonia, cardiomegaly, previous cholecystectomy with prominent common bile duct without intrahepatic duct dilation, a distended fluid-filled stomach otherwise no clear reported evidence of an infectious process. Blood cultures were drawn in the ED. The patient required an right IJ central line placement. CODE STATUS was reviewed with the patient, the patient wishes to be DNR/DNI but is okay with medical management including vasopressor medications for shock. Hospital medicine was consulted for admission. 01/10 The patient was agitated overnight, pulled out the right IJ central line. Haldol prn started for agitation. Diabetic ketoacidosis resolved, transitioned off insulin infusion to subcutaneous Lantus and sliding scale Humalog. Off Levophed in the morning but was restarted for hypotension while the patient was sleeping. The patient is encephalopathic, CT head ordered and did not show any acute changes. INR down to 1.4, hemoglobin trend has been stable. Making urine and renal function improving. The patient has improved clinical but overall prognosis is still guarded, updated family and friends at the bedside. Overnight, the patient developed a anion gap and an insulin infusion was restarted. 01/11 Weaned off of Levophed, blood sugar stable on insulin infusion. Blood cultures showing no growth to date. Lactic acid decreased to 2.7. Continues on vancomycin and cefepime, renal function continues to improve. Chest x-ray showed pulmonary vascular congestion. 40 mg IV once given. Transthoracic echocardiogram ordered. Transition back to subcutaneous basal bolus insulin. 01/12 Patient became agitated and pulled out a lot of her lines overnight. Received Haldol. Drowsy this morning but does answer questions slowly. Unable to take p.o. at this point and will start tube feedings. Had to start vasopressor back on. Leukocytosis improved. Hypokalemia/ hypomagnesemia. Creatinine better. Awaiting stool sample for occult blood test. 01/13 Patient became quite agitated last night during a lines required IV Haldol Benadryl and subsequently Ativan to calm her. Patient appears to be resting comfortably and mildly drowsy but opens eyes and answers questions appropriately. Digital rectal exam reveals dark stool and was tested and is guaiac positive. 01/14 Blood pressure low last night but not enough to require Levophed. Patient started to eat a little bit more yesterday. No sedation needed for agitation last night. Patient drowsy this morning but does answer questions appropriately. 01/15 Patient did not require any Levophed last night. However she did require some IV Haldol for agitation and pulling at lines. Seems calm and cooperative this morning. Stable on sliding scale insulin no need for drip. 01/16 Patient doing well quite improved. Sitting up in bed eating breakfast. No agitation medications needed last night. Feeling better. No GI bleeding noted. Renal function stable and improved. Review of Systems: denies headache/fever/chills/nausea/vomiting/chest or abdominal pain/cough/dyspnea/diarrhea. Otherwise see above. Constitutional Vitals: Vital Signs Temp Pulse Resp BP Pulse Ox 97.2 F 113 H 20 123/89 96 01/16/22 04:05 01/12/22 15:01 01/16/22 06:10 01/16/22 06:01 01/16/22 04:22 Period Temp Pulse Resp BP Sys/Simpson Pulse Ox Last 24 Hr 97.0 F-97.3 F 12-25 69-127/44-105 89-100 Intake and Output 04/01/16/22 01/16/22 21:59 05:59 13:59 Intake Total 902 Output Total 392 500 Balance 510 -500 Weight 96.615 kg Intake & Output: Intake & Output 01/15/22 01/16/22 01/16/22 21:59 05:59 13:59 Intake Total 902 Output Total 392 500 Balance 510 -500 Weight 96.615 kg Intake: Nourishment/Supplement quantity 200 (ml) IV 52 Magnesium Sulfate 8.12 Meq In 52 Dextrose 5% in Water 50 ml @ 52 mls/hr IV ONCE ONE Rx#: [id number] Oral 650 Output: Urine Catheter Amount 392 500 Other: Meal Dinner Percent of Meal Consumed 50% Feeding Ability Independent Nourishment/Supplement name Glucerna Urine Appearance Clear Clear Uretheral (Hanks) Clear Urine Color Bright Yellow Bright Yellow Uretheral (Hanks) Bright Yellow Urine Odor Normal Strong Exam: General: awake, No acute Distress, obese Eyes/N/T: EOMI, Head/Neck: neck supple, CV: irreg irreg, No murmurs, normal s1/s2 Pulm: Clear b/l, no wheezing/rhonchi/rales Abd: soft, nontender, +BS x4 Ext: no clubbing/cyanosis, b/l LE 1+ edema Neuro: Awake and alert, answers questions appropriately, moves all extremities Skin: warm/dry OBJ DATA Labs CBC & Chem 7: 01/16/22 05:45 01/16/22 05:45 Labs: Abnormal Lab Results 01/16/22 01/14/22 05:45 05:08 Chloride 92 L BUN 27 H Creatinine 1.3 H 1.4 H Glucose 123 H 163 H Calcium 7.9 L Direct Bilirubin 0.3 H Lactate Dehydrogenase 250 H Total Protein 5.1 L Albumin 3.1 L Globulin 2.0 L Meds: Medications Dextrose (Dextrose 50% 50 Ml Vial) 0 ml IV UD PRN PRN Reason: Per Sliding Scale Diagnostic Test (Pha) (Accu-Chek 1 Each Strip) 1 each FS ACHS TAY Last Admin: 01/16/22 07:17 Dose: 1 each Documented by: Glucose (Dextrose 31 Gm Oral.Susp) 15 gm PO PRN PRN PRN Reason: Hypoglycemia Haloperidol Lactate (Haloperidol Lactate 5 Mg/Ml Vial) 2 mg IV Q4HP PRN PRN Reason: Agitation Last Admin: 01/14/22 23:07 Dose: 2 mg Documented by: Acetaminophen (Ofirmev) 1,000 mg in 100 mls @ 200 mls/hr IV Q6HP PRN; Protocol PRN Reason: PAIN/FEVER > 101 Last Infusion: 01/15/22 13:29 Dose: Infused Documented by: Insulin Glargine (Insulin Glargine, Human 1 Unit/0.01 Ml) 15 unit SQ DAILY [facility] Last Admin: 01/15/22 09:21 Dose: 15 units Documented by: Insulin Human Lispro (Insulin Lispro 1 Unit/0.01 Ml Unit) 0 unit SQ ACHS [facility]; Protocol Last Admin: 01/16/22 07:18 Dose: Not Given Documented by: Metoprolol Tartrate (Metoprolol Tartrate 5 Mg/5 Ml Vial) 5 mg IV Q4HP PRN PRN Reason: Tachyarrhythmias Last Admin: 01/12/22 16:14 Dose: 5 mg Documented by: Mupirocin (Mupirocin Oint 2% 22gm) 1 dose NARES BID [facility] Stop: 01/17/22 21:00 Last Admin: 01/15/22 21:03 Dose: 1 dose Documented by: Olanzapine (Olanzapine 5 Mg Tablet) 5 mg PO HS [facility] Last Admin: 01/15/22 20:56 Dose: 5 mg Documented by: Pantoprazole Sodium (Pantoprazole 40 Mg Packet) 40 mg PO BIDAC [facility] Last Admin: 01/16/22 07:35 Dose: 40 mg Documented by: Polyethylene Glycol (Polyethylene Glycol 3350 17 Gm Packet) 17 gm PO DAILYP PRN PRN Reason: Constipation Last Admin: 01/15/22 15:17 Dose: 17 gm Documented by: Sodium Chloride (0.9 % Sodium Chloride 10 Ml Syringe) 10 ml IV Q8 TAY Last Admin: 01/16/22 05:39 Dose: 10 ml Documented by: Tramadol HCl (Tramadol 50 Mg Tablet) 50 mg PO Q8HP PRN; Protocol PRN Reason: Pain Last Admin: 01/15/22 15:52 Dose: 50 mg Documented by: ABG Interpretation ABG results: 01/09/22 01/10/22 01/10/22 22:17 01:42 06:10 ABG Methemoglobin 0.2 L 0.2 L 0.2 L VBG pH 7.33 7.37 7.45 H VBG pCO2 32.1 L 42.0 36.0 L VBG pO2 37.8 40.3 H 109.7 H VBG HCO3 16.6 L 23.7 L 24.6 VBG Total CO2 17.6 L 25.0 25.7 VBG O2 Saturation 72.9 H 75.6 H 93.8 H VBG Base Excess -8 L -2 1 01/10/22 01/10/22 01/10/22 09:30 14:11 17:38 ABG Methemoglobin 0.1 L 0.2 L 0.3 L VBG pH 7.38 7.47 H 7.40 VBG pCO2 46.1 38.0 L 40.5 L VBG pO2 33.2 73.8 H 36.3 VBG HCO3 26.8 26.8 24.4 VBG Total CO2 28.3 28.0 25.6 VBG O2 Saturation 67.4 91.0 H 68.6 VBG Base Excess 1 3 0 01/10/22 19:54 ABG Methemoglobin 0.3 L VBG pH 7.47 H VBG pCO2 33.1 L VBG pO2 94.4 H VBG HCO3 23.3 L VBG Total CO2 24.3 L VBG O2 Saturation 92.8 H VBG Base Excess 0 A/P Narrative A/P Narrative: A: #undifferentiated shock, possibly due to sepsis or simply volume depletion from DKA: -BC/UC neg -no levophed needed #Encephalopathy/Delirium with severe agitation at times: likely superimposed on MCI or Dementia of some degree -has required haldol/benadryl/and subsequently Ativan at times -CT brain with cerebral atrophy and small vessel ischemic dz, and old infarct -Improving, no haldol needed #Likely underlying Dementia with sundowning &/or ICU delerium: #Lactic acidosis: improved #DKA: Resolved #BRENDAN on CKD IV: improved #Acute hypoxic respiratory failure: 2/2 chf -improved, but now back on O2 1-2L #Acute on diastolic(III) chronic CHF w/Pulm Edema& Right Heart Failure& mod TR: f/u cxr in AM -echo with EF 50-55%, apical/basal WMA, diastolic III -cxr improved #Volume overload: from IV fluid resuscitation #GI bleed, likely upper and mild: report of coffee ground emesis 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 appears to have stopped & was minimal otherwise #Thrombocytopenia: stable #Syncopal episode: #Atrial fibrillation: previously on Coumadin (reversed with IV vitamin K on adm it) #h/o CVA: per incidental finding on CT brain #DM 2: #HTN/HLD: #Obesity: BMI 33 #hypomag/hypokal/hypophos: replace #Guarded prognosis: Plan: -hold IV Lasix today -prn Oxygen supplementation -zyprexa qhs, Haldol IV prn for agitation, discontinue Ativan IV as needed -Lantus(titrate up once better PO intake) and SSI -Hold home Coreg/losartan/hydrochlorothiazide/triamterene due to recent shock, r estart BB at lower dose -pt/ot when able -encourage oral intake -Case management for likely SNF when stable -f/u with Dr. Claudio outpt for EGD -cont ppi bid -ppx: SCD (no chemical given GIB) / ppi CODE STATUS: DNR/DNI Time Spent With Patient Time: Total time spent is greater than 50% in coordination of care (as documented) at patient's floor/unit and/or counseling patient:
[2022-01-16] MEDS ORDERED: SENNOSIDES 1 TABLET PO PRN (08:02)
[2022-01-16] MEDS: MUPIROCIN OINT 2% 22GM NARES SCH ×2 (09:11→20:39)
[2022-01-16] MEDS: INSULIN GLARGINE, HUMAN 1 UNIT/0.01 ML SQ SCH (09:11)
--- NOTE | 2022-01-16 10:00 | Discharge Summary ---
Discharge Provider Provider Patient information: Note initiated : 01/16/22 at 9:55 am Service Date, if different from initiated Date: [] Patient: Maribel Reaves 81 y/o F admitted on 01/09/22 for Low blood pressure, elevated blood sugar. Chief Complaint: [] Date of admission: 01/09/22 20:56 Discharge date: 01/16/22 Primary care physician: Adeola Salhe Consults: 01/09/22 Consult to Physician [CONS] Stat Comment: Consulting Provider: Joaquin Correa Reason For Exam: Physician to Consult Discharge Meds Discharge Medications Home Medications insulin lispro [Humalog KwikPen Insulin] 37 units SUB-Q TID 04/13/16 [History Confirmed 01/10/22 Last Taken Unknown] blood sugar diagnostic (Precision Xtra Test) #20 each 09/10/17 [History Confirmed 01/01/22 Last Taken Unknown] pen needle, diabetic 31 gauge x 3/16" (Easy Comfort Pen [place]) #30 each 09/10/17 [History Confirmed 01/01/22 Last Taken Unknown] cholecalciferol (vitamin D3) 50 mcg (2,000 unit) capsule 2,000 unit PO QDAY #90 cap 12/20/17 [Rx Confirmed 01/09/22 Last Taken Unknown] iron, carbonyl 45 mg tablet 45 mg PO QHS tab 04/27/18 [History Confirmed 01/09/22 Last Taken Unknown] insulin glargine 100 unit/mL (3 mL) subcutaneous pen (Lantus Solostar U-100 Insulin) 18 unit (0.18 mL) SUB-Q QHS #15 ml 09/19/18 [Rx Confirmed 01/09/22 Last Taken Unknown] alendronate 70 mg tablet 70 mg PO QWEEK 01/21/21 [History Confirmed 01/09/22 Last Taken Unknown] nystatin 100,000 unit/gram topical powder 1 applic TOPICAL BID PRN 01/09/22 [History Confirmed 01/09/22 Last Taken Unknown] simvastatin 20 mg tablet 1 tab PO HS 01/09/22 [History Confirmed 01/09/22 Last Taken Unknown] carvedilol 6.25 mg tablet 3.125 mg PO BID #1 tab 01/16/22 [Rx Last Taken Unknown] dapagliflozin 10 mg tablet 10 mg PO QAM #30 tab 01/16/22 [Rx Last Taken Unknown] losartan 50 mg tablet 25 mg PO DAILY #1 tab 01/16/22 [Rx Last Taken Unknown] pantoprazole 40 mg granules delayed-release for susp in packet 40 mg PO BIDAC #60 ea 01/16/22 [Rx Last Taken Unknown] spironolactone 25 mg tablet 12.5 mg PO QDAY #30 tab 01/16/22 [Rx Last Taken Unknown] COURSE Hospital Course Hospital course: Interval history: Ms. Reaves is a 81 year old male with a history of hypertension, hyperlipidemia, insulin-dependent type 2 diabetes mellitus, atrial fibrillation on Coumadin, left ventricular diastolic dysfunction, pulmonary hypertension, chronic kidney disease stage IV who presented to the emergency department via EMS after a syncopal event and coffee ground emesis. In the emergency department the patient was found to be in shock, diabetic ketoacidosis as well as a lactic acidosis complicated by an acute on chronic kidney disease injury. There is concern for septic shock, the patient was started on broad-spectrum antibiotics, IV fluid resuscitation, Levophed for vasopressor support, and insulin infusion for diabetic ketoacidosis as well as a bicarbonate IV infusion for severe metabolic acidosis. Sepsis work-up included a urinalysis which was not suggestive of a UTI, chest x-ray which was suggestive of pulmonary vascular congestion, a CT abdomen pelvis showed bibasilar pulmonary parenchymal infiltrates that could represent pulmonary edema or interstitial pneumonia, cardiomegaly, previous cholecystectomy with prominent common bile duct without intrahepatic duct dilation, a distended fluid-filled stomach otherwise no clear reported evidence of an infectious process. Blood cultures were drawn in the ED. The patient required an right IJ central line placement. CODE STATUS was reviewed with the patient, the patient wishes to be DNR/DNI but is okay with medical management including vasopressor medications for shock. Hospital medicine was consulted for admission. 01/10 The patient was agitated overnight, pulled out the right IJ central line. Haldol prn started for agitation. Diabetic ketoacidosis resolved, transitioned off insulin infusion to subcutaneous Lantus and sliding scale Humalog. Off Levophed in the morning but was restarted for hypotension while the patient was sleeping. The patient is encephalopathic, CT head ordered and did not show any acute changes. INR down to 1.4, hemoglobin trend has been stable. Making urine and renal function improving. The patient has improved clinical but overall prognosis is still guarded, updated family and friends at the bedside. Overnight, the patient developed a anion gap and an insulin infusion was restarted. 01/11 Weaned off of Levophed, blood sugar stable on insulin infusion. Blood cultures showing no growth to date. Lactic acid decreased to 2.7. Continues on vancomycin and cefepime, renal function continues to improve. Chest x-ray showed pulmonary vascular congestion. 40 mg IV once given. Transthoracic echoca rdiogram ordered. Transition back to subcutaneous basal bolus insulin. 01/12 Patient became agitated and pulled out a lot of her lines overnight. Received Haldol. Drowsy this morning but does answer questions slowly. Unable to take p.o. at this point and will start tube feedings. Had to start vasopressor back on. Leukocytosis improved. Hypokalemia/ hypomagnesemia. Creatinine better. Awaiting stool sample for occult blood test. 01/13 Patient became quite agitated last night during a lines required IV Haldol Benadryl and subsequently Ativan to calm her. Patient appears to be resting comfortably and mildly drowsy but opens eyes and answers questions appropriately. Digital rectal exam reveals dark stool and was tested and is guaiac positive. 01/14 Blood pressure low last night but not enough to require Levophed. Patient started to eat a little bit more yesterday. No sedation needed for agitation last night. Patient drowsy this morning but does answer questions appropriately. 01/15 Patient did not require any Levophed last night. However she did require some IV Haldol for agitation and pulling at lines. Seems calm and cooperative this morning. Stable on sliding scale insulin no need for drip. 01/16 Patient doing well quite improved. Sitting up in bed eating breakfast. No agitation medications needed last night. Feeling better. No GI bleeding noted. Renal function stable and improved. Extremely high risk for readmission given age and comorbidities A: #undifferentiated shock, possibly due to sepsis or simply volume depletion from DKA: -BC/UC neg #Encephalopathy/Delirium with severe agitation at times: likely superimposed on MCI or Dementia of some degree -CT brain with cerebral atrophy and small vessel ischemic dz, and old infarct #Likely underlying Dementia with sundowning &/or ICU delerium: #Lactic acidosis: improved #DKA: Resolved #BRENDAN on CKD IV: improved #Acute hypoxic respiratory failure: 2/2 chf #Acute on diastolic(III) chronic CHF w/Pulm Edema& Right Heart Failure& mod TR: f/u cxr in AM -echo with EF 50-55%, apical/basal WMA, diastolic III #Volume overload: from IV fluid resuscitation #GI bleed, likely upper and mild: report of 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 appears to have stopped & was minimal otherwise #Thrombocytopenia: stable #Syncopal episode: #Atrial fibrillation: previously on Coumadin (reversed with IV vitamin K on admit) #h/o CVA: per incidental finding on CT brain #DM 2: #HTN/HLD: #Obesity: BMI 33 #hypomag/hypokal/hypophos: replace #Guarded prognosis: Plan: -hold warfarin until f/u with Gen surg for EGD -cont home coreg at lower dose, decrease ARB, d/c HCTZ/triamterene and start SGLT-2 & MRA for HFpEF -f/u with Dr. González bakerpt for EGD -cont ppi bid Discharge diagnosis: Hypovolemic shock DKA lactic acidosis acute on chronic kidney disease acute Secondary discharge diagnosis: Acute on chronic kidney disease acute hypoxic respite failure acute on chronic d iastolic heart failure and right heart failure volume overload GI bleed thrombocytopenia syncopal event A. fib stroke diabetes hypertension obesity dementia Time Spent with Patient Time attestation: Total time spent providing and/or coordinating discharge services: Time spent: Greater than 30 minutes EXAM Constitutional Vitals: Temp Pulse Resp BP Pulse Ox 97.4 F 113 H 16 124/82 94 01/16/22 08:05 01/12/22 15:01 01/16/22 08:05 01/16/22 08:05 01/16/22 08:05 Discharge Data Data Completed and Pending Labs on day of discharge: Labs from last 24 hours 01/16/22 01/16/22 01/16/22 09:11 05:45 05:45 Hgb Hct Plt Count Pending TNP Sodium 141 Potassium 3.6 Chloride 99 Carbon Dioxide 29 Anion Gap 13.0 BUN 20 Creatinine 1.3 H GFR Calculation 38 Glucose 123 H Calcium 9.3 01/16/22 01/15/22 05:45 10:41 Hgb 11.9 12.5 Hct 34.8 37.5 Plt Count Sodium Potassium Chloride Carbon Dioxide Anion Gap BUN Creatinine GFR Calculation Glucose Calcium Discharge Plan Patient/Caregiver Discharge Instructions Activity: increase activity as tolerated Diet: Consistent Carbohydrate Activity Restrictions/Additional Instructions: Hold home warfarin until seen by general surgery for EGD. Monitor your blood pressure twice daily, keep a log and bring to PCP. Keep a log of your blood glucose readings and bring to PCP. Prescriptions: New dapagliflozin 10 mg tablet 10 mg PO QAM Qty: 30 0RF spironolactone 25 mg tablet 12.5 mg PO QDAY Qty: 30 0RF pantoprazole [address] For Susp In Packet 40 mg PO BIDAC Qty: 60 0RF Continued insulin lispro 37 units SUB-Q TID 0RF (DME) blood sugar diagnostic [Precision Xtra Test] strip See Dose Instructions .ROUTE .MEDSUPPLY Qty: 20 0RF Rx Instructions: As directed (DME) pen needle, diabetic [Easy Comfort Pen [place]] 31 gauge x 3/16" needle See Dose Instructions .ROUTE .MEDSUPPLY Qty: 30 0RF Rx Instructions: As directed cholecalciferol (vitamin D3) 2,000 unit capsule 2,000 unit PO QDAY Qty: 90 4RF insulin glargine [Lantus Solostar U-100 Insulin] 100 unit/mL (3 mL) insulin pen 18 unit SUB-Q QHS Qty: 15 0RF iron, carbonyl 45 mg tablet 45 mg PO QHS 0RF alendronate 70 mg tablet 70 mg PO QWEEK 0RF nystatin 100,000 unit/gram powder 1 applic topical BID PRN (Reason: Rash) 0RF Rx Instructions: Apply under breasts and groin BID simvastatin 20 mg tablet 1 tab PO HS 0RF Changed losartan 50 mg tablet 25 mg PO DAILY Qty: 1 0RF carvedilol 6.25 mg tablet 3.125 mg PO BID Qty: 1 0RF Discontinued warfarin 5 mg tablet 5 mg PO QDAY 0RF triamterene-hydrochlorothiazid 37.5-25 mg capsule 1 cap PO QDAY 0RF Follow Up Plan Follow up with: Adeola Saleh MD [Primary Care Provider] - Patient Disposition: Home Health Service Prognosis: Undetermined Overall status at discharge: patient is progressing back to baseline Discharge Orders: Discharge Order (Routine); Ordered 01/16/22 Ordered By: Justin Lovell
[2022-01-16] MEDS: POLYETHYLENE GLYCOL 3350 17 GM PACKET PO PRN (11:23)
[2022-01-16] MEDS: traMADol 50 MG TABLET PO PRN (12:03)
[2022-01-16] MEDS ORDERED: LORazepam 1 MG TABLET ONE (12:40)
[2022-01-16] MEDS ORDERED: LORazepam 1 MG TABLET PO ONE (12:45)
--- NOTE | 2022-01-16 17:30 | Behavioral Health Consult ---
HPI History of Present Illness Patient information: Note initiated : 01/16/22 at 5:28 pm Service Date, if different from initiated Date: [] Patient: Maribel Reaves a 81 y/o F admitted on 01/09/22 for Low blood pressure, elevated blood sugar. Chief Complaint: [] History of present illness: Name: Maribel ReavesDOB: 1940 DateandTime: 01/16/2022 8:05:30 PM Location of the patient: [facility] IPLocation of the doctor: Length of consult: This evaluation was conducted via video telepsychiatry with the assistance of onsite staff Reason for consult: Requested by: History of Present Illness: Ms Maribel Reaves is a 81-year-old female who was brought in hypotensive shock with diabetic ketoacidosis. patient during the interview was still disoriented, confused, irritable, agitated and did not really want to participate in the interview with this examiner. Nurse Ms Farr was very helpful who was present during the interview and help answer some basic orientation questions. as per the data gathered from the medical record patient lives with her 91-year-old man by the name of Tushar. Mr. Finley is the sole caregiver of this patient. patient has a history of hypertension, hyperlipide tank, insulin-dependent type 2 diabetes mellitus, atrial fibrillation on Coumadin, left ventricular diastolic dysfunction, pulmonary hypertension, chronic kidney disease stage IV who presented to the emergency department via EMS after a syncopal event and coffee ground emesis. In the emergency department the patient was found to be in shock, diabetic ketoacidosis as well as a lactic acidosis complicated by an acute on chronic kidney disease injury. CT abdomen pelvis showed bibasilar pulmonary parenchymal infiltrates that could represent pulmonary edema or interstitial pneumonia, cardiomegaly, previous cholecystectomy with prominent common bile duct without intrahepatic duct dilation, a distended fluid-filled stomach otherwise no clear reported evidence of an infectious process. CODE STATUS was reviewed with the patient, the patient wishes to be DNR/DNI but is okay with medical management including vasopressor medications for shock. As per the nursing staff patient became very agitated in the last 24 hours remove the central line and had to be given p.r.n. agitation medications including Haldol and ativan. patient is gravely disabled right now. Patient is not capable of making rational decisions for her welfare at this current time now patient appears to be delirious and agitated Collateral Contacted: Bertha for not contacting the collateral:None available Sleep issues?: YesSleep Quantity:Sleep Quality: Psychiatric History/Treatment History: Past diagnoses: multiple medical problems as per medical records Hospitalizations: No Current Treatment:No Suicide Assessment: PSS-3: 1) Over the past 2 weeks have you felt down, depressed or hopeless?No 2) Over the past 2 weeks have you had thoughts of killing yourself?No 3) Have you ever in your life attempted to kill yourself?No Within the past 6 months? [facility]-based Safety Assessment: Risk Factors Stressors: needs assistance with activities of daily living, needs supervision to manage her diabetes and multiple medical problems Attempts/Self-injury: No Impulsivity:YesDescription: Drug/Alcohol History:No Trauma History:No Access to firearms:No HI/Violence/Property destruction:No Legal: No Family Psych History:Unknown-NA Family History of suicide:Unknown-NA Protective Factors: Can handle stress well?No Yarsani?Yes External: Social supports/ Therapeutic relationships: YesDescription: Relationship history: Living situation: lives with a friend by the name of Tushar who is 91 years old Employment: No Education: Responsibility to family/children/work: No Future orientation:No Health History: Medical History: multiple medical problems as listed in the chart Medications & Freq: as per the MARs Allergies: as per records Mental Status Exam: Appearance and Attire: Psychomotor agitation:Psychomotor agitation Attitude and behavior:Agitated, Restless, Guarded, Suspicious Speech:Paucity of speech Mood:Labile, Irritable, Anxious Affect:Labile, Intense, Irritable Thought process:Circumstantial, Vague Thought content:Paranoia Perception: Intel:Low average Abstract:Perseverative, Poor reasoning Language:Impaired to Naming, Impaired to Word finding, Impaired to Repetition Orientation:Oriented to person, Oriented to place, Oriented to time Sense:Distractible, Delirious Knowledge:Moderate impairment Memory:Impaired to Immediate recall, Impaired to Recent recall (3 min) Insight:Lack of awareness of problems, Failure to recognize benefits of treatment, Lack of motivation to change health risk behaviors, Mild impairment Judgement:Moderate impairmentImpaired in interactions with others, Impaired in response and decision making, Impaired in responses to current situation and behavior, Impaired in self care, Impaired in treatment compliance Gait: Impression/Risk Assessment: Current Suicide Risk Elevated?No Current Violence Risk Elevated?No Issues with ability to care for self?Yes Summary: patient is an 81-year-old female consulted for acute psychomotor agitation, acute disorientation acute confusion and acute delirium resulting from hypotensive septic shock and diabetic ketoacidosis Diagnosis: F01.51 Vascular dementia with behavioral disturbance, 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 CPT Codes: 88114 Expanded problem focused history, exam, low complexity medical decision making (15 min) Treatment Plan: General: patient is gravely disabled patient is not able to make rational decisions for her welfare at this current time patient is not capable of functioning independently at this current time patient needs to be transferred to a senior living facility for some kind of physical therapy and rehab for further strengthening, stabilization, welfare, recovery after medical clearance and optimum medical stabilization Level of Care: continue inpatient medical management until further medical stabilization Psychiatric Clearance: Yes Observation level 1:1 needed?: YesNotes:falls precautions, acute delirium Pharmacological: recommend to start the patient on -- Seroquel 25 mg twice a day before meals, 100 mg at bedtime -- Depakote Dr 125 mg twice a day -- Zoloft 50 mg in the morning Patient psychotic?No Therapy: supportive Follow up needed while in the hospital?: YesNumber of times:every other day until patient is medically stabilized and is discharged to the next level of care Discussed plan with onsite steam finisher: Yes Who registered nurse on duty Ms Farr Other: PFSH PFSH All Active Problems (Updated 01/10/22 @ 22:23 by Stan Cummins DO) Diabetic keto-acidosis (Acute) Acute renal failure (Acute) Acute upper gastrointestinal bleeding (Acute) Hypertension in stage 4 chronic kidney disease due to type 2 diabetes mellitus (Chronic) CKD (chronic kidney disease) stage 4, GFR 15-29 ml/min (Chronic) Degenerative disc disease, lumbar (Acute) Secondary hyperparathyroidism of renal origin (Chronic) Localized edema due to fluid overload (Acute) Vitamin D deficiency (Chronic) Atrial fibrillation (Chronic) Iron deficiency anemia (Acute) Diastolic dysfunction (Acute) Cardiomegaly (Acute) Pulmonary hypertension (Acute) Hyperlipidemia (Acute) Hypertension (Acute) Osteoporosis (Acute) Heart trouble (Acute) Type II diabetes mellitus (Acute) Depression (Acute) Cancer (Acute) Arthritis (Acute) Medical History (Updated 01/10/22 @ 22:23 by Stan Cummins DO) Arthritis Atrial fibrillation Cancer Cardiomegaly Depression Diastolic dysfunction Heart trouble Hyperlipidemia Hypertension Iron deficiency anemia Osteoporosis Pulmonary hypertension Type II diabetes mellitus Vitamin D deficiency Surgical History Hx of colonoscopy Family History Father Stroke Social History 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 status: physical activity: walking and swimming frequency: 3-4 times per week alcohol intake frequency: does not drink substance use type: does not use seatbelt use: always MEDS/ALLERGIES Home Medications and Allergies Home Medications Medication Instructions Recorded Confirmed Type insulin lispro [Humalog KwikPen 37 units SUB-Q TID 04/13/16 01/10/22 History Insulin] blood sugar diagnostic (Precision #20 each 09/10/17 01/01/22 History Xtra Test) pen needle, diabetic 31 gauge x #30 each 09/10/17 01/01/22 History 3/16" (Easy Comfort Pen [place]) cholecalciferol (vitamin D3) 50 2,000 unit PO QDAY #90 cap 12/20/17 01/09/22 Rx mcg (2,000 unit) capsule iron, carbonyl 45 mg tablet 45 mg PO QHS tab 04/27/18 01/09/22 History insulin glargine 100 unit/mL (3 18 unit (0.18 mL) SUB-Q QHS #15 ml 09/19/18 01/09/22 Rx mL) subcutaneous pen (Lantus Solostar U-100 Insulin) alendronate 70 mg tablet 70 mg PO QWEEK 01/21/21 01/09/22 History nystatin 100,000 unit/gram topical 1 applic TOPICAL BID PRN 01/09/22 01/09/22 History powder simvastatin 20 mg tablet 1 tab PO HS 01/09/22 01/09/22 History carvedilol 6.25 mg tablet 3.125 mg PO BID #1 tab 01/16/22 Rx dapagliflozin 10 mg tablet 10 mg PO QAM #30 tab 01/16/22 Rx losartan 50 mg tablet 25 mg PO DAILY #1 tab 01/16/22 Rx pantoprazole 40 mg granules 40 mg PO BIDAC #60 ea 01/16/22 Rx delayed-release for susp in packet spironolactone 25 mg tablet 12.5 mg PO QDAY #30 tab 01/16/22 Rx Allergies Allergy/AdvReac Type Severity Reaction Status Date / Time No Known Drug Allergies Allergy Verified 01/01/22 12:31 Physical Examination Vital Signs Vital signs: Temp Pulse Resp BP Pulse Ox 98.3 F 89 20 106/65 96 01/16/22 16:01 01/16/22 13:07 01/16/22 16:01 01/16/22 16:01 01/16/22 16:01 Results Laboratory Findings CBC and BMP: 01/16/22 10:25 01/16/22 05:45 ABG, PT/INR, D-dimer: PT/INR, D-dimer PT 15.6 sec (11.9-14.5) H 01/13/22 05:10 INR 1.2 (0.9-1.1) H 01/13/22 05:10 Abnormal lab findings: Abnormal Labs 01/09/22 01/09/22 01/09/22 09:35 09:35 09:35 WBC 14.2 H RBC Hgb Hct POC Hct MCV 107.2 H MCHC 30.0 L Plt Count 107 L MPV 13.3 H Neut % (Auto) 90.8 H Lymph % (Auto) 5.5 L Lymph # (Auto) 0.78 L [place] # (Auto) Absolute Neutrophils 12.84 H PT INR APTT 43.7 H ABG Methemoglobin VBG pH VBG pCO2 VBG pO2 VBG HCO3 VBG Total CO2 VBG O2 Saturation VBG Base Excess VBG Lactic Acid Carboxyhemoglobin POC Sodium 118 L* Sodium 116 L* POC Potassium 6.6 H* Potassium 6.6 H* POC Chloride 89 L Chloride 73 L Carbon Dioxide 6 L* POC Total CO2 9 L* Anion Gap 37.0 H POC BUN 57 H BUN 67 H Creatinine 3.8 H POC Creatinine 3.7 H Glucose 1253 H* POC Glucose > 700 H* Uric Acid Calcium POC WB Ioniz Calcium 1.04 L Phosphorus Magnesium Direct Bilirubin Lactate Dehydrogenase Troponin T Total Protein Albumin Globulin Urine Appearance Urine Glucose (UA) Urine Ketones Hyaline Casts Urine Mucus 01/09/22 01/09/22 01/09/22 09:35 09:49 12:54 WBC RBC Hgb Hct POC Hct MCV MCHC Plt Count MPV Neut % (Auto) Lymph % (Auto) Lymph # (Auto) [place] # (Auto) Absolute Neutrophils PT INR APTT ABG Methemoglobin VBG pH VBG pCO2 VBG pO2 VBG HCO3 VBG Total CO2 VBG O2 Saturation VBG Base Excess VBG Lactic Acid 4.1 H* Carboxyhemoglobin POC Sodium Sodium 125 L POC Potassium Potassium 5.9 H* POC Chloride Chloride 81 L Carbon Dioxide 7 L* POC Total CO2 Anion Gap 37.0 H POC BUN BUN 65 H Creatinine 3.6 H POC Creatinine Glucose 1094 H* POC Glucose Uric Acid Calcium POC WB Ioniz Calcium Phosphorus Magnesium Direct Bilirubin Lactate Dehydrogenase Troponin T 0.03 H Total Protein Albumin Globulin Urine Appearance Urine Glucose (UA) Urine Ketones Hyaline Casts Urine Mucus 01/09/22 01/09/22 01/09/22 12:54 13:53 14:46 WBC RBC Hgb Hct POC Hct MCV MCHC Plt Count MPV Neut % (Auto) Lymph % (Auto) Lymph # (Auto) [place] # (Auto) Absolute Neutrophils PT INR APTT ABG Methemoglobin VBG pH VBG pCO2 VBG pO2 VBG HCO3 VBG Total CO2 VBG O2 Saturation VBG Base Excess VBG Lactic Acid 4.4 H* Carboxyhemoglobin POC Sodium 126 L Sodium 123 L 123 L POC Potassium 5.2 H Potassium 5.2 H POC Chloride 95 L Chloride 81 L 82 L Carbon Dioxide 7 L* 8 L* POC Total CO2 11 L Anion Gap 35.0 H 33.0 H POC BUN 63 H BUN 62 H 64 H Creatinine 3.6 H 3.7 H POC Creatinine 3.4 H Glucose 1003 H* 1001 H* POC Glucose > 700 H* Uric Acid Calcium POC WB Ioniz Calcium 1.15 L Phosphorus Magnesium Direct Bilirubin Lactate Dehydrogenase Troponin T Total Protein Albumin Globulin Urine Appearance Urine Glucose (UA) Urine Ketones Hyaline Casts Urine Mucus 01/09/22 01/09/22 01/09/22 15:43 16:30 17:49 WBC RBC Hgb Hct POC Hct 35 L MCV MCHC Plt Count MPV Neut % (Auto) Lymph % (Auto) Lymph # (Auto) [place] # (Auto) Absolute Neutrophils PT INR APTT ABG Methemoglobin VBG pH VBG pCO2 VBG pO2 VBG HCO3 VBG Total CO2 VBG O2 Saturation VBG Base Excess VBG Lactic Acid Carboxyhemoglobin POC Sodium 128 L Sodium 125 L POC Potassium Potassium POC Chloride Chloride 83 L Carbon Dioxide 11 L POC Total CO2 14 L Anion Gap 31.0 H POC BUN 60 H BUN 64 H Creatinine 3.5 H POC Creatinine 3.4 H Glucose 921 H* POC Glucose > 700 H* Uric Acid Calcium POC WB Ioniz Calcium 1.09 L Phosphorus Magnesium Direct Bilirubin Lactate Dehydrogenase Troponin T Total Protein Albumin Globulin Urine Appearance Hazy A Urine Glucose (UA) >=500 A Urine Ketones 20 A Hyaline Casts 7 H Urine Mucus Few A 01/09/22 01/09/22 01/09/22 18:01 19:55 22:17 WBC RBC Hgb Hct POC Hct MCV MCHC Plt Count MPV Neut % (Auto) Lymph % (Auto) Lymph # (Auto) [place] # (Auto) Absolute Neutrophils PT INR APTT ABG Methemoglobin VBG pH VBG pCO2 VBG pO2 VBG HCO3 VBG Total CO2 VBG O2 Saturation VBG Base Excess VBG Lactic Acid Carboxyhemoglobin POC Sodium 130 L Sodium 125 L POC Potassium Potassium POC Chloride Chloride 86 L 90 L Carbon Dioxide 11 L 18 L POC Total CO2 16 L Anion Gap 28.0 H 25.0 H POC BUN 61 H BUN 65 H 65 H Creatinine 3.6 H 3.4 H POC Creatinine 3.5 H Glucose 801 H* 637 H* POC Glucose 658 H* Uric Acid 9.7 H Calcium POC WB Ioniz Calcium 1.14 L Phosphorus Magnesium Direct Bilirubin Lactate Dehydrogenase Troponin T Total Protein Albumin Globulin Urine Appearance Urine Glucose (UA) Urine Ketones Hyaline Casts Urine Mucus 01/09/22 01/09/22 01/09/22 22:17 22:17 22:17 WBC RBC Hgb Hct POC Hct MCV MCHC Plt Count MPV Neut % (Auto) Lymph % (Auto) Lymph # (Auto) [place] # (Auto) Absolute Neutrophils PT INR APTT ABG Methemoglobin 0.2 L VBG pH VBG pCO2 32.1 L VBG pO2 VBG HCO3 16.6 L VBG Total CO2 17.6 L VBG O2 Saturation 72.9 H VBG Base Excess -8 L VBG Lactic Acid 4.5 H* Carboxyhemoglobin 5.3 H POC Sodium 131 L Sodium POC Potassium Potassium POC Chloride Chloride Carbon Dioxide POC Total CO2 20 L Anion Gap POC BUN 61 H BUN Creatinine POC Creatinine 3.5 H Glucose POC Glucose 610 H* Uric Acid Calcium POC WB Ioniz Calcium 1.14 L Phosphorus Magnesium Direct Bilirubin Lactate Dehydrogenase Troponin T Total Protein Albumin Globulin Urine Appearance Urine Glucose (UA) Urine Ketones Hyaline Casts Urine Mucus 01/10/22 01/10/22 01/10/22 01:42 01:42 06:09 WBC RBC Hgb Hct POC Hct MCV MCHC Plt Count MPV Neut % (Auto) Lymph % (Auto) Lymph # (Auto) [place] # (Auto) Absolute Neutrophils PT 17.4 H INR 1.4 H APTT ABG Methemoglobin 0.2 L VBG pH VBG pCO2 VBG pO2 40.3 H VBG HCO3 23.7 L VBG Total CO2 VBG O2 Saturation 75.6 H VBG Base Excess VBG Lactic Acid Carboxyhemoglobin 3.5 H POC Sodium Sodium 132 L POC Potassium Potassium POC Chloride Chloride 91 L Carbon Dioxide POC Total CO2 Anion Gap 18.0 H POC BUN BUN 69 H Creatinine 3.2 H POC Creatinine Glucose 404 H POC Glucose Uric Acid Calcium POC WB Ioniz Calcium Phosphorus 2.0 L Magnesium Direct Bilirubin Lactate Dehydrogenase Troponin T Total Protein Albumin Globulin Urine Appearance Urine Glucose (UA) Urine Ketones Hyaline Casts Urine Mucus 01/10/22 01/10/22 01/10/22 06:10 06:10 09:30 WBC RBC Hgb Hct POC Hct MCV MCHC Plt Count MPV Neut % (Auto) Lymph % (Auto) Lymph # (Auto) [place] # (Auto) Absolute Neutrophils PT INR APTT ABG Methemoglobin 0.2 L VBG pH 7.45 H VBG pCO2 36.0 L VBG pO2 109.7 H VBG HCO3 VBG Total CO2 VBG O2 Saturation 93.8 H VBG Base Excess VBG Lactic Acid Carboxyhemoglobin 4.0 H POC Sodium Sodium POC Potassium Potassium POC Chloride Chloride 95 L Carbon Dioxide POC Total CO2 Anion Gap POC BUN BUN 63 H 59 H Creatinine 3.0 H 2.8 H POC Creatinine Glucose 330 H 206 H POC Glucose Uric Acid Calcium POC WB Ioniz Calcium Phosphorus 2.2 L 2.0 L Magnesium Direct Bilirubin Lactate Dehydrogenase Troponin T Total Protein Albumin Globulin Urine Appearance Urine Glucose (UA) Urine Ketones Hyaline Casts Urine Mucus 01/10/22 01/10/22 01/10/22 09:30 14:09 14:11 WBC RBC Hgb Hct POC Hct MCV MCHC Plt Count MPV Neut % (Auto) Lymph % (Auto) Lymph # (Auto) [place] # (Auto) Absolute Neutrophils PT INR APTT ABG Methemoglobin 0.1 L VBG pH VBG pCO2 VBG pO2 VBG HCO3 VBG Total CO2 VBG O2 Saturation VBG Base Excess VBG Lactic Acid 4.0 H* Carboxyhemoglobin 3.9 H POC Sodium Sodium POC Potassium Potassium POC Chloride Chloride 95 L Carbon Dioxide POC Total CO2 Anion Gap POC BUN BUN 59 H Creatinine 2.6 H POC Creatinine Glucose 176 H POC Glucose Uric Acid Calcium POC WB Ioniz Calcium Phosphorus 1.4 L Magnesium Direct Bilirubin Lactate Dehydrogenase Troponin T Total Protein Albumin Globulin Urine Appearance Urine Glucose (UA) Urine Ketones Hyaline Casts Urine Mucus 01/10/22 01/10/22 01/10/22 14:11 17:38 17:38 WBC RBC Hgb Hct POC Hct MCV MCHC Plt Count MPV Neut % (Auto) Lymph % (Auto) Lymph # (Auto) [place] # (Auto) Absolute Neutrophils PT INR APTT ABG Methemoglobin 0.2 L 0.3 L VBG pH 7.47 H VBG pCO2 38.0 L 40.5 L VBG pO2 73.8 H VBG HCO3 VBG Total CO2 VBG O2 Saturation 91.0 H VBG Base Excess VBG Lactic Acid Carboxyhemoglobin 4.9 H POC Sodium Sodium POC Potassium Potassium POC Chloride Chloride 93 L Carbon Dioxide POC Total CO2 Anion Gap 18.0 H POC BUN BUN 56 H Creatinine 2.5 H POC Creatinine Glucose 303 H POC Glucose Uric Acid Calcium POC WB Ioniz Calcium Phosphorus Magnesium Direct Bilirubin Lactate Dehydrogenase Troponin T Total Protein Albumin Globulin Urine Appearance Urine Glucose (UA) Urine Ketones Hyaline Casts Urine Mucus 01/10/22 01/10/22 01/10/22 19:54 19:54 20:04 WBC RBC Hgb Hct POC Hct MCV MCHC Plt Count MPV Neut % (Auto) Lymph % (Auto) Lymph # (Auto) [place] # (Auto) Absolute Neutrophils PT INR APTT ABG Methemoglobin 0.3 L VBG pH 7.47 H VBG pCO2 33.1 L VBG pO2 94.4 H VBG HCO3 23.3 L VBG Total CO2 24.3 L VBG O2 Saturation 92.8 H VBG Base Excess VBG Lactic Acid 4.2 H* Carboxyhemoglobin 4.5 H POC Sodium Sodium 132 L POC Potassium Potassium POC Chloride Chloride 93 L Carbon Dioxide POC Total CO2 Anion Gap 17.0 H POC BUN BUN 56 H Creatinine 2.6 H POC Creatinine Glucose 271 H POC Glucose Uric Acid Calcium POC WB Ioniz Calcium Phosphorus Magnesium Direct Bilirubin Lactate Dehydrogenase Troponin T Total Protein Albumin Globulin Urine Appearance Urine Glucose (UA) Urine Ketones Hyaline Casts Urine Mucus 01/11/22 01/11/22 01/11/22 01:12 01:12 05:34 WBC 12.1 H RBC 3.46 L Hgb 11.0 L Hct 33.4 L POC Hct MCV MCHC Plt Count 71 L MPV 11.9 H Neut % (Auto) 79.5 H Lymph % (Auto) 10.8 L Lymph # (Auto) 1.30 L [place] # (Auto) 1.13 H Absolute Neutrophils 9.62 H PT INR APTT ABG Methemoglobin VBG pH VBG pCO2 VBG pO2 VBG HCO3 VBG Total CO2 VBG O2 Saturation VBG Base Excess VBG Lactic Acid 2.7 H Carboxyhemoglobin POC Sodium Sodium POC Potassium Potassium 3.2 L POC Chloride Chloride Carbon Dioxide POC Total CO2 Anion Gap POC BUN BUN 52 H Creatinine 2.5 H POC Creatinine Glucose 161 H POC Glucose Uric Acid Calcium POC WB Ioniz Calcium Phosphorus 2.3 L Magnesium Direct Bilirubin Lactate Dehydrogenase Troponin T Total Protein Albumin Globulin Urine Appearance Urine Glucose (UA) Urine Ketones Hyaline Casts Urine Mucus 01/11/22 01/11/22 01/12/22 05:34 15:36 05:19 WBC RBC Hgb Hct POC Hct MCV MCHC Plt Count 72 L MPV 11.4 H Neut % (Auto) Lymph % (Auto) 13.3 L Lymph # (Auto) 1.13 L [place] # (Auto) Absolute Neutrophils PT INR APTT ABG Methemoglobin VBG pH VBG pCO2 VBG pO2 VBG HCO3 VBG Total CO2 VBG O2 Saturation VBG Base Excess VBG Lactic Acid Carboxyhemoglobin POC Sodium Sodium POC Potassium Potassium 3.1 L POC Chloride Chloride 89 L Carbon Dioxide 33 H POC Total CO2 Anion Gap POC BUN BUN 48 H 42 H Creatinine 2.1 H 2.0 H POC Creatinine Glucose 161 H 179 H POC Glucose Uric Acid Calcium 8.5 L 8.5 L POC WB Ioniz Calcium Phosphorus 1.8 L Magnesium Direct Bilirubin Lactate Dehydrogenase 277 H Troponin T Total Protein 5.1 L Albumin 3.0 L Globulin 2.1 L Urine Appearance Urine Glucose (UA) Urine Ketones Hyaline Casts Urine Mucus 01/12/22 01/13/22 01/13/22 05:19 05:10 05:10 WBC RBC Hgb Hct POC Hct MCV MCHC Plt Count 80 L MPV 12.3 H Neut % (Auto) Lymph % (Auto) Lymph # (Auto) [place] # (Auto) 1.06 H Absolute Neutrophils PT INR APTT ABG Methemoglobin VBG pH VBG pCO2 VBG pO2 VBG HCO3 VBG Total CO2 VBG O2 Saturation VBG Base Excess VBG Lactic Acid Carboxyhemoglobin POC Sodium Sodium POC Potassium Potassium 3.1 L POC Chloride Chloride 92 L 92 L Carbon Dioxide POC Total CO2 Anion Gap POC BUN BUN 35 H 27 H Creatinine 1.5 H 1.4 H POC Creatinine Glucose 149 H 106 H POC Glucose Uric Acid Calcium 7.9 L 8.3 L POC WB Ioniz Calcium Phosphorus 2.4 L Magnesium 1.5 L Direct Bilirubin 0.3 H 0.3 H Lactate Dehydrogenase 263 H 318 H Troponin T Total Protein 5.0 L 5.8 L Albumin 3.0 L Globulin 2.0 L Urine Appearance Urine Glucose (UA) Urine Ketones Hyaline Casts Urine Mucus 01/13/22 01/14/22 01/16/22 05:10 05:08 05:45 WBC RBC Hgb Hct POC Hct MCV MCHC Plt Count MPV Neut % (Auto) Lymph % (Auto) Lymph # (Auto) [place] # (Auto) Absolute Neutrophils PT 15.6 H INR 1.2 H APTT ABG Methemoglobin VBG pH VBG pCO2 VBG pO2 VBG HCO3 VBG Total CO2 VBG O2 Saturation VBG Base Excess VBG Lactic Acid Carboxyhemoglobin POC Sodium Sodium POC Potassium Potassium POC Chloride Chloride 92 L Carbon Dioxide POC Total CO2 Anion Gap POC BUN BUN 27 H Creatinine 1.4 H 1.3 H POC Creatinine Glucose 163 H 123 H POC Glucose Uric Acid Calcium 7.9 L POC WB Ioniz Calcium Phosphorus Magnesium Direct Bilirubin 0.3 H Lactate Dehydrogenase 250 H Troponin T Total Protein 5.1 L Albumin 3.1 L Globulin 2.0 L Urine Appearance Urine Glucose (UA) Urine Ketones Hyaline Casts Urine Mucus 01/16/22 10:25 WBC RBC Hgb Hct POC Hct MCV MCHC Plt Count 96 L MPV Neut % (Auto) Lymph % (Auto) Lymph # (Auto) [place] # (Auto) Absolute Neutrophils PT INR APTT ABG Methemoglobin VBG pH VBG pCO2 VBG pO2 VBG HCO3 VBG Total CO2 VBG O2 Saturation VBG Base Excess VBG Lactic Acid Carboxyhemoglobin POC Sodium Sodium POC Potassium Potassium POC Chloride Chloride Carbon Dioxide POC Total CO2 Anion Gap POC BUN BUN Creatinine POC Creatinine Glucose POC Glucose Uric Acid Calcium POC WB Ioniz Calcium Phosphorus Magnesium Direct Bilirubin Lactate Dehydrogenase Troponin T Total Protein Albumin Globulin Urine Appearance Urine Glucose (UA) Urine Ketones Hyaline Casts Urine Mucus Microbiology: Microbiology 01/09/22 11:39 Blood Blood Culture - Final 01/09/22 11:30 Blood Blood Culture - Final 01/12/22 11:37 Nose - Both Right and Left MRSA (PCR) - Final Alcohol Toxicology: PT/INR, D-dimer PT 15.6 sec (11.9-14.5) H 01/13/22 05:10 INR 1.2 (0.9-1.1) H 01/13/22 05:10 A/P Time Spent With Patient Time: Total time spent is greater than 50% in coordination of care (as documented) at patient's floor/unit and/or counseling patient: Total time spent with greater than 50% in coordination of care (as documented) at patient's floor/unit and/or counseling patient:: 15 - 24 minutes
[2022-01-16] MEDS: QUEtiapine 100 MG TABLET PO SCH ×2 (18:45→20:55)
[2022-01-16] MEDS: OLANZapine 5 MG TABLET PO SCH (20:39)
[2022-01-16] MEDS: DIVALPROEX SODIUM 250 MG TABLET PO SCH (20:39)
[2022-01-16] MEDS: SIMVASTATIN 20 MG TABLET PO SCH (20:58)
[2022-01-16] MEDS ORDERED: IRON 45 MG PO SCH (21:00)
[2022-01-17] MEDS: 0.9 % SODIUM CHLORIDE 10 ML SYRINGE IV SCH ×3 (04:58→22:00)
[2022-01-17] MEDS: traMADol 50 MG TABLET PO PRN ×2 (05:40→17:41)
[2022-01-17] MEDS: QUEtiapine 25 MG TABLET PO SCH ×2 (06:59→16:49)
[2022-01-17] MEDS: PANTOPRAZOLE 40 MG PACKET PO SCH ×2 (06:59→16:49)
[2022-01-17 07:00] LABS: Phosphorous 2.8 mg/dL (2.5-4.5)
[2022-01-17] MEDS ORDERED: ALENDRONATE SODIUM 70 MG TABLET PO SCH (07:30)
[2022-01-17 08:12] LABS: Basophils # (Auto) 0.04 K/mcL (0.00-0.30); Basophils % (Auto) 0.5 % (0.0-2.0); Eosinophils # (Auto) 0.19 K/mcL (0.00-0.70); Eosinophils % (Auto) 2.4 % (0.0-7.0); Hematocrit 35.9 % (34.1-44.9); Hemoglobin 11.8 g/dL (11.2-15.7); Lymphocytes # (Auto) 1.61 K/mcL (1.50-4.80); Lymphocytes % (Auto) 20.6 % (15.5-49.0); Mean Cell Volume 99.2 fL (80.0-100.0); Mean Corpuscular HGB Conc 32.9 g/dL (31.0-36.0); Mean Platelet Volume 11.6 fL (7.4-10.4); Monocytes % (Auto) 17.9 % (1.0-12.0); Neutrophils % (Auto) 58.6 % (38.0-78.0); Platelet Count 109 K/mcL (140-440); RBC 3.62 M/mcL (3.59-5.38); Red Cell Distribution Width 13.2 % (11.5-14.5); WBC 7.8 K/mcL (4.5-11.0)
[2022-01-17] MEDS: MUPIROCIN OINT 2% 22GM NARES SCH ×2 (08:36→20:30)
[2022-01-17] MEDS: INSULIN LISPRO 1 UNIT/0.01 ML UNIT SQ SCH ×4 (08:36→20:34)
[2022-01-17] MEDS: INSULIN GLARGINE, HUMAN 1 UNIT/0.01 ML SQ SCH (08:36)
[2022-01-17] MEDS: DIVALPROEX SODIUM 250 MG TABLET PO SCH ×2 (08:37→20:38)
[2022-01-17] MEDS: SERTRALINE 50 MG TABLET PO SCH (08:37)
[2022-01-17] MEDS: VITAMIN D3 25 MCG TABLET PO SCH (08:37)
--- NOTE | 2022-01-17 09:44 | Internal Med Progress Note ---
SUBJECTIVE Subjective Patient information: Note initiated : 01/17/22 at 9:37 am Service Date, if different from initiated Date: [] Patient: Maribel Reaves 81 y/o F admitted on 01/09/22 for Low blood pressure, elevated blood sugar. Chief Complaint: [] Interval history: Ms. Reaves is a 81 year old male with a history of hypertension, hyperlipidemia, insulin-dependent type 2 diabetes mellitus, atrial fibrillation on Coumadin, left ventricular diastolic dysfunction, pulmonary hypertension, chronic kidney disease stage IV who presented to the emergency department via EMS after a syncopal event and coffee ground emesis. In the emergency department the patient was found to be in shock, diabetic ketoacidosis as well as a lactic acidosis complicated by an acute on chronic kidney disease injury. There is concern for septic shock, the patient was started on broad-spectrum antibiotics, IV fluid resuscitation, Levophed for vasopressor support, and insulin infusion for diabetic ketoacidosis as well as a bicarbonate IV infusion for severe metabolic acidosis. Sepsis work-up included a urinalysis which was not suggestive of a UTI, chest x-ray which was suggestive of pulmonary vascular congestion, a CT abdomen pelvis showed bibasilar pulmonary parenchymal infiltrates that could represent pulmonary edema or interstitial pneumonia, cardiomegaly, previous cholecystectomy with prominent common bile duct without intrahepatic duct dilation, a distended fluid-filled stomach otherwise no clear reported evidence of an infectious process. Blood cultures were drawn in the ED. The patient required an right IJ central line placement. CODE STATUS was reviewed with the patient, the patient wishes to be DNR/DNI but is okay with medical management i ncluding vasopressor medications for shock. Hospital medicine was consulted for admission. 01/10 The patient was agitated overnight, pulled out the right IJ central line. Haldol prn started for agitation. Diabetic ketoacidosis resolved, transitioned off insulin infusion to subcutaneous Lantus and sliding scale Humalog. Off Levophed in the morning but was restarted for hypotension while the patient was sleeping. The patient is encephalopathic, CT head ordered and did not show any acute changes. INR down to 1.4, hemoglobin trend has been stable. Making urine and renal function improving. The patient has improved clinical but overall prognosis is still guarded, updated family and friends at the bedside. Overnight, the patient developed a anion gap and an insulin infusion was restarted. 01/11 Weaned off of Levophed, blood sugar stable on insulin infusion. Blood cultures showing no growth to date. Lactic acid decreased to 2.7. Continues on vancomycin and cefepime, renal function continues to improve. Chest x-ray showed pulmonary vascular congestion. 40 mg IV once given. Transthoracic echocardiogram ordered. Transition back to subcutaneous basal bolus insulin. 01/12 Patient became agitated and pulled out a lot of her lines overnight. Received Haldol. Drowsy this morning but does answer questions slowly. Unable to take p.o. at this point and will start tube feedings. Had to start vasopressor back on. Leukocytosis improved. Hypokalemia/ hypomagnesemia. Creatinine better. Awaiting stool sample for occult blood test. 01/13 Patient became quite agitated last night during a lines required IV Haldol Benadryl and subsequently Ativan to calm her. Patient appears to be resting comfortably and mildly drowsy but opens eyes and answers questions appropriately. Digital rectal exam reveals dark stool and was tested and is guaiac positive. 01/14 Blood pressure low last night but not enough to require Levophed. Patient started to eat a little bit more yesterday. No sedation needed for agitation last night. Patient drowsy this morning but does answer questions appropriate ly. 01/15 Patient did not require any Levophed last night. However she did require some IV Haldol for agitation and pulling at lines. Seems calm and cooperative this morning. Stable on sliding scale insulin no need for drip. 01/16 Patient doing well quite improved. Sitting up in bed eating breakfast. No agitation medications needed last night. Feeling better. No GI bleeding noted. Renal function stable and improved. 01/17: Status post telemetry psychiatrist evaluations on 01/16, diagnosed her with acute delirium, and recommended Seroquel, Depakote, and Zoloft. Patient had a good night sleep status post Seroquel 100 mg p.o. given at bedtime last night. Patient is currently complaining of mild to moderate lower back pain. Patient is otherwise feeling all right. Stool occult blood tested negative. H&H stable. Resume Coumadin. Awaiting fdc placement. Constitutional Vitals: Vital Signs Temp Pulse Resp BP Pulse Ox 37.1 C 90 16 132/88 95 01/17/22 04:33 01/16/22 21:15 01/17/22 04:33 01/17/22 04:33 01/17/22 04:33 Period Temp Pulse Resp BP Sys/Simpson Pulse Ox Last 24 Hr 36.4 C-37.1 C 89-90 14-28 106-132/58-92 88-98 Intake and Output 01/16/22 01/17/22 01/17/22 21:59 05:59 13:59 Intake Total 240 120 Output Total 0 Balance 240 120 Weight 95.481 kg Intake & Output: Intake & Output 01/16/22 01/17/22 01/17/22 21:59 05:59 13:59 Intake Total 240 120 Output Total 0 Balance 240 120 Weight 95.481 kg Intake: Nourishment/Supplement quantity 240 (ml) Oral 120 Output: Void Amount 0 Other: Meal apple sauce Percent of Meal Consumed Refused 100% Feeding Ability Independent Assist with Tray Set Up Nourishment/Supplement name Glucergenesis Stool Size Moderate Stool Color Brown Stool Consistency Soft # Voids 1 # Bowel Movements 1 # of times incontinent of 0 Bowels General appearance: cooperative, no acute distress and obese Head Head exam: Present atraumatic and normal inspection Eye Eye exam: Present normal appearance ENT ENT exam: Present mucous membranes moist, normal exam and normal external ear exam Neck Neck exam: Present normal inspection Respiratory Respiratory exam: Present normal respiratory exam Cardiovascular Cardiovascular exam: Present irregular rhythm GI/Abdominal GI/Abdominal exam: Present normal bowel sounds Back Exam Back exam: Present normal inspection Neurological Exam Neurological exam: Present alert and oriented X3 Skin Skin exam: Present intact and warm OBJ DATA Labs CBC & Chem 7: 01/17/22 06:53 01/17/22 05:18 Labs: Abnormal Lab Results 01/17/22 01/16/22 01/16/22 06:53 10:25 05:45 Plt Count 109 L 96 L MPV 11.6 H Carroll % (Auto) 17.9 H Carroll # (Auto) 1.40 H Creatinine 1.3 H Glucose 123 H Meds: Medications Acetaminophen (Acetaminophen 325 Mg Tablet) 650 mg PO Q4-6HP PRN; Protocol PRN Reason: Per Pain Protocol Alendronate Sodium (Alendronate Sodium 70 Mg Tablet) 70 mg PO Sa@0730 [facility] Last Admin: 01/17/22 06:59 Dose: 70 mg Documented by: Dextrose (Dextrose 50% 50 Ml Vial) 0 ml IV UD PRN PRN Reason: Per Sliding Scale Diagnostic Test (Pha) (Accu-Chek 1 Each Strip) 1 each FS [facility] Last Admin: 01/17/22 07:26 Dose: 1 each Documented by: Divalproex Sodium (Divalproex Sodium 250 Mg Tablet) 125 mg PO BID [facility] Last Admin: 01/17/22 08:37 Dose: 125 mg Documented by: Glucose (Dextrose 31 Gm Oral.Susp) 15 gm PO PRN PRN PRN Reason: Hypoglycemia Acetaminophen (Ofirmev) 1,000 mg in 100 mls @ 200 mls/hr IV Q6HP PRN; Protocol PRN Reason: PAIN/FEVER > 101 Last Infusion: 01/15/22 13:29 Dose: Infused Documented by: Insulin Glargine (Insulin Glargine, Human 1 Unit/0.01 Ml) 15 unit SQ DAILY [facility] Last Admin: 01/17/22 08:36 Dose: 15 units Documented by: Insulin Human Lispro (Insulin Lispro 1 Unit/0.01 Ml Unit) 0 unit SQ [facility]; Protocol Last Admin: 01/17/22 08:36 Dose: 4 units Documented by: Metoprolol Tartrate (Metoprolol Tartrate 5 Mg/5 Ml Vial) 5 mg IV Q4HP PRN PRN Reason: Tachyarrhythmias Last Admin: 01/12/22 16:14 Dose: 5 mg Documented by: Mupirocin (Mupirocin Oint 2% 22gm) 1 dose NARES BID [facility] Stop: 01/17/22 21:00 Last Admin: 01/17/22 08:36 Dose: 1 dose Documented by: Olanzapine (Olanzapine 5 Mg Tablet) 5 mg PO HS [facility] Last Admin: 01/16/22 20:39 Dose: 5 mg Documented by: Pantoprazole Sodium (Pantoprazole 40 Mg Packet) 40 mg PO BIDAC [facility] Last Admin: 01/17/22 06:59 Dose: 40 mg Documented by: Polyethylene Glycol (Polyethylene Glycol 3350 17 Gm Packet) 17 gm PO DAILYP PRN PRN Reason: Constipation Last Admin: 01/16/22 11:23 Dose: 17 gm Documented by: Quetiapine Fumarate (Quetiapine 25 Mg Tablet) 25 mg PO BIDCC [facility] Last Admin: 01/17/22 06:59 Dose: 25 mg Documented by: Quetiapine Fumarate (Quetiapine 100 Mg Tablet) 100 mg PO [facility] Last Admin: 01/16/22 20:55 Dose: Not Given Documented by: Senna (Sennosides 1 Tablet) 1 tab PO DAILYP PRN PRN Reason: constipation Last Admin: 01/16/22 09:11 Dose: 1 tab Documented by: Sertraline HCl (Sertraline 50 Mg Tablet) 50 mg PO DAILY [facility] Last Admin: 01/17/22 08:37 Dose: 50 mg Documented by: Simvastatin (Simvastatin 20 Mg Tablet) 20 mg PO [facility] Last Admin: 01/16/22 20:58 Dose: 20 mg Documented by: Sodium Chloride (0.9 % Sodium Chloride 10 Ml Syringe) 10 ml IV Q8 [facility] Last Admin: 01/17/22 04:58 Dose: Not Given Documented by: Tramadol HCl (Tramadol 50 Mg Tablet) 50 mg PO Q8HP PRN; Protocol PRN Reason: Pain Last Admin: 01/17/22 05:40 Dose: 50 mg Documented by: Vitamin D (Vitamin D3 25 Mcg Tablet) 50 mcg PO DAILY [facility] Last Admin: 01/17/22 08:37 Dose: 50 mcg Documented by: Warfarin Sodium (Warfarin Per Pharmacy) 1 order PO DAILY@1400 [facility] ABG Interpretation ABG results: 01/09/22 01/10/22 01/10/22 22:17 01:42 06:10 ABG Methemoglobin 0.2 L 0.2 L 0.2 L VBG pH 7.33 7.37 7.45 H VBG pCO2 32.1 L 42.0 36.0 L VBG pO2 37.8 40.3 H 109.7 H VBG HCO3 16.6 L 23.7 L 24.6 VBG Total CO2 17.6 L 25.0 25.7 VBG O2 Saturation 72.9 H 75.6 H 93.8 H VBG Base Excess -8 L -2 1 01/10/22 01/10/22 01/10/22 09:30 14:11 17:38 ABG Methemoglobin 0.1 L 0.2 L 0.3 L VBG pH 7.38 7.47 H 7.40 VBG pCO2 46.1 38.0 L 40.5 L VBG pO2 33.2 73.8 H 36.3 VBG HCO3 26.8 26.8 24.4 VBG Total CO2 28.3 28.0 25.6 VBG O2 Saturation 67.4 91.0 H 68.6 VBG Base Excess 1 3 0 01/10/22 19:54 ABG Methemoglobin 0.3 L VBG pH 7.47 H VBG pCO2 33.1 L VBG pO2 94.4 H VBG HCO3 23.3 L VBG Total CO2 24.3 L VBG O2 Saturation 92.8 H VBG Base Excess 0 A/P Assessment and plan (1) Diabetic keto-acidosis: Status: Acute (2) Acute renal failure: Status: Acute (3) Hypertension in stage 4 chronic kidney disease due to type 2 diabetes mellitus: Status: Chronic (4) Acute upper gastrointestinal bleeding: Status: Acute (5) CKD (chronic kidney disease) stage 4, GFR 15-29 ml/min: Status: Chronic (6) Secondary hyperparathyroidism of renal origin: Status: Chronic (7) Degenerative disc disease, lumbar: Status: Acute (8) Atrial fibrillation: Status: Chronic Qualifiers: Atrial fibrillation type: chronic Qualified Code(s): I48.2 - Chronic atrial fibrillation; I48.2 - Chronic atrial fibrillation; I48.2 - Chronic atrial fibrillation; I48.2 - Chronic atrial fibrillation (9) Diastolic dysfunction: Status: Acute (10) Hyperlipidemia: Status: Acute (11) Hypertension: Status: Acute Qualifiers: Hypertension type: essential hypertension Qualified Code(s): I10 - Essential (primary) hypertension; I10 - Essential (primary) hypertension; I10 - Essential (primary) hypertension (12) Type II diabetes mellitus: Status: Acute (13) Depression: Status: Acute (14) Delirium: Status: Acute Narrative A/P Narrative: Assessment and Plans: 1. Acute delirium in the context of dementia: s/p tele-psychiatrist evaluation, recs. 0.25 mg twice a day after meals, in addition to 100 mg p.o. at bedtime, Depakote delayed release 125 mg twice daily, Zoloft 50 mg in the morning 1:1 sitter, or at least watch bed status Awaiting SNF placement Treat the other medical comorbidities accordingly, see the following 2. Atrial fibrillation: Hold beta nica at this moment due to soft blood pressure Resume Warfarin since stool occult blood negative, pharmacy dosing Daily INR, goal INR 2-3 3. h/o recent GI bleeding: Resume Warfarin since stool occult blood negative, pharmacy dosing cbc w/ auto diff in the morning to trend H/H GI outpatient follow up for potential endoscopy Protonix PO BID 4. Undifferentiated shock, hypovolemic vs septic: Blood and urine cultures no growth to date No Levophed needed Hold beta nica at this moment due to soft blood pressure Encourage oral fluid intake 5. DKA, resolved: HgA1c Continue Lantus and SSI AC HS Accu Chek AC HS Hypoglycemia protocol Diabetic diet 6. Dyslipidemia: Continue statin therapy 7. BRENDAN on CKD stage IV, improved: Avoid nephrotoxic agents Currently saline lock CMP in the morning to trend kidney functions 8. Diastolic CHF with pulmonary edema: Echocardiogram showing LVEF 50-55%, stage III diastolic dysfunction, apical/basal WMA Currently tolerating room air Continue to monitor clinical status GI ppx: Protonix PO BID DVT ppx: Resume Warfarin since stool occult blood negative, pharmacy dosing Code status: DNI DNR Prognosis: stable Disposition: inpatient med surg; awaiting SNF placement Time Spent With Patient Time: Total time spent is greater than 50% in coordination of care (as documented) at patient's floor/unit and/or counseling patient: Total time spent with greater than 50% in coordination of care (as documented) a t patient's floor/unit and/or counseling patient:: 25 - 35 minutes
[2022-01-17 13:36] LABS: ALT/SGPT 13 U/L (<40); AST/SGOT 22 U/L (<32); Albumin 3.4 gm/dL (3.2-5.2); Albumin/Globulin Ratio 1.3 (1.0-2.3); Alkaline Phosphatase 78 U/L (39-117); Bilirubin,Total 0.6 mg/dL (0.1-1.0); Blood Urea Nitrogen 21 mg/dL (8-23); Calcium 9.3 mg/dL (8.6-10.4); Carbon Dioxide 27 mmol/L (22-30); Chloride 97 mmol/L (96-108); Globulin 2.7 gm/dL (2.2-3.7); Glomerular Filtration Rate 35; Glucose 195 mg/dL (70-105)
[2022-01-17] MEDS ORDERED: WARFARIN 5 MG TABLET PO SCH (14:00)
[2022-01-17] MEDS: ACETAMINOPHEN 325 MG TABLET PO PRN (16:49)
[2022-01-17] MEDS: SIMVASTATIN 20 MG TABLET PO SCH (20:32)
[2022-01-17] MEDS: OLANZapine 5 MG TABLET PO SCH (20:32)
[2022-01-17] MEDS: QUEtiapine 100 MG TABLET PO SCH (20:37)
[2022-01-18] MEDS: 0.9 % SODIUM CHLORIDE 10 ML SYRINGE IV SCH ×3 (05:47→21:23)
[2022-01-18 07:04] LABS: ALT/SGPT 12 U/L (<40); AST/SGOT 20 U/L (<32); Albumin 3.1 gm/dL (3.2-5.2); Albumin/Globulin Ratio 1.4 (1.0-2.3); Alkaline Phosphatase 77 U/L (39-117); Bilirubin,Total 0.4 mg/dL (0.1-1.0); Blood Urea Nitrogen 23 mg/dL (8-23); Calcium 8.7 mg/dL (8.6-10.4); Carbon Dioxide 29 mmol/L (22-30); Chloride 96 mmol/L (96-108); Globulin 2.2 gm/dL (2.2-3.7); Glomerular Filtration Rate 32; Glucose 135 mg/dL (70-105); Phosphorous 3.9 mg/dL (2.5-4.5)
[2022-01-18 07:16] LABS: Basophils # (Auto) 0.06 K/mcL (0.00-0.30); Basophils % (Auto) 1.1 % (0.0-2.0); Eosinophils # (Auto) 0.32 K/mcL (0.00-0.70); Eosinophils % (Auto) 5.6 % (0.0-7.0); Hematocrit 33.4 % (34.1-44.9); Lymphocytes # (Auto) 1.86 K/mcL (1.50-4.80); Lymphocytes % (Auto) 32.7 % (15.5-49.0); Mean Cell Volume 99.4 fL (80.0-100.0); Mean Corpuscular HGB Conc 32.9 g/dL (31.0-36.0); Monocytes # (Auto) 1.22 K/mcL (0.10-0.90); Monocytes % (Auto) 21.5 % (1.0-12.0); Neutrophils % (Auto) 39.1 % (38.0-78.0); Platelet Count 110 K/mcL (140-440); RBC 3.36 M/mcL (3.59-5.38); Red Cell Distribution Width 13.7 % (11.5-14.5); WBC 5.7 K/mcL (4.5-11.0)
[2022-01-18] MEDS: PANTOPRAZOLE 40 MG PACKET PO SCH ×2 (09:26→17:07)
[2022-01-18] MEDS: SERTRALINE 50 MG TABLET PO SCH (09:26)
[2022-01-18] MEDS: DIVALPROEX SODIUM 250 MG TABLET PO SCH ×2 (09:26→21:16)
[2022-01-18] MEDS: INSULIN GLARGINE, HUMAN 1 UNIT/0.01 ML SQ SCH (09:26)
[2022-01-18] MEDS: VITAMIN D3 25 MCG TABLET PO SCH (09:26)
[2022-01-18] MEDS: INSULIN LISPRO 1 UNIT/0.01 ML UNIT SQ SCH ×4 (09:27→21:06)
[2022-01-18] MEDS: ACETAMINOPHEN 325 MG TABLET PO PRN (10:25)
[2022-01-18] MEDS: QUEtiapine 25 MG TABLET PO SCH ×2 (10:25→17:07)
--- NOTE | 2022-01-18 11:25 | Internal Med Progress Note ---
SUBJECTIVE Subjective Patient information: Note initiated : 01/18/22 at 11:22 am Service Date, if different from initiated Date: [] Patient: Maribel Reaves 81 y/o F admitted on 01/09/22 for Low blood pressure, elevated blood sugar. Chief Complaint: [] Interval history: Ms. Reaves is a 81 year old male with a history of hypertension, hyperlipidemia, insulin-dependent type 2 diabetes mellitus, atrial fibrillation on Coumadin, left ventricular diastolic dysfunction, pulmonary hypertension, chronic kidney disease stage IV who presented to the emergency department via EMS after a syncopal event and coffee ground emesis. In the emergency department the patient was found to be in shock, diabetic ketoacidosis as well as a lactic acidosis complicated by an acute on chronic kidney disease injury. There is concern for septic shock, the patient was started on broad-spectrum antibiotics, IV fluid resuscitation, Levophed for vasopressor support, and insulin infusion for diabetic ketoacidosis as well as a bicarbonate IV infusion for severe metabolic acidosis. Sepsis work-up included a urinalysis which was not suggestive of a UTI, chest x-ray which was suggestive of pulmonary vascular congestion, a CT abdomen pelvis showed bibasilar pulmonary parenchymal infiltrates that could represent pulmonary edema or interstitial pneumonia, cardiomegaly, previous cholecystectomy with prominent common bile duct without intrahepatic duct dilation, a distended fluid-filled stomach otherwise no clear reported evidence of an infectious process. Blood cultures were drawn in the ED. The patient required an right IJ central line placement. CODE STATUS was reviewed with the patient, the patient wishes to be DNR/DNI but is okay with medical management including vasopressor medications for shock. Hospital medicine was consulted for admission. 01/10 The patient was agitated overnight, pulled out the right IJ central line. Haldol prn started for agitation. Diabetic ketoacidosis resolved, transitioned off insulin infusion to subcutaneous Lantus and sliding scale Humalog. Off Levophed in the morning but was restarted for hypotension while the patient was sleeping. The patient is encephalopathic, CT head ordered and did not show any acute changes. INR down to 1.4, hemoglobin trend has been stable. Making urine and renal function improving. The patient has improved clinical but overall prognosis is still guarded, updated family and friends at the bedside. Overnight, the patient developed a anion gap and an insulin infusion was restarted. 01/11 Weaned off of Levophed, blood sugar stable on insulin infusion. Blood cultures showing no growth to date. Lactic acid decreased to 2.7. Continues on vancomycin and cefepime, renal function continues to improve. Chest x-ray showed pulmonary vascular congestion. 40 mg IV once given. Transthoracic echocardiogram ordered. Transition back to subcutaneous basal bolus insulin. 01/12 Patient became agitated and pulled out a lot of her lines overnight. Received Haldol. Drowsy this morning but does answer questions slowly. Unable to take p.o. at this point and will start tube feedings. Had to start vasopressor back on. Leukocytosis improved. Hypokalemia/ hypomagnesemia. Creatinine better. Awaiting stool sample for occult blood test. 01/13 Patient became quite agitated last night during a lines required IV Haldol Benadryl and subsequently Ativan to calm her. Patient appears to be resting comfortably and mildly drowsy but opens eyes and answers questions appropriately. Digital rectal exam reveals dark stool and was tested and is guaiac positive. 01/14 Blood pressure low last night but not enough to require Levophed. Patient started to eat a little bit more yesterday. No sedation needed for agitation last night. Patient drowsy this morning but does answer questions appropriat zen. 01/15 Patient did not require any Levophed last night. However she did require some IV Haldol for agitation and pulling at lines. Seems calm and cooperative this morning. Stable on sliding scale insulin no need for drip. 01/16 Patient doing well quite improved. Sitting up in bed eating breakfast. No agitation medications needed last night. Feeling better. No GI bleeding noted. Renal function stable and improved. 01/17: Status post telemetry psychiatrist evaluations on 01/16, diagnosed her with acute delirium, and recommended Seroquel, Depakote, and Zoloft. Patient had a good night sleep status post Seroquel 100 mg p.o. given at bedtime last night. Patient is currently complaining of mild to moderate lower back pain. Patient is otherwise feeling all right. Stool occult blood tested negative. H&H stable. Resume Coumadin. Awaiting fci placement. 01/18: Patient had an uneventful night with reported good night sleep. Patient is currently complaining of mild to moderate lower back pain. Patient is otherwise feeling all right. H&H stable. Awaiting fci placement. Constitutional Vitals: Vital Signs Temp Pulse Resp BP Pulse Ox 35.8 C L 62 20 110/93 99 01/18/22 08:00 01/18/22 03:08 01/18/22 08:00 01/18/22 08:00 01/18/22 08:00 Period Temp Pulse Resp BP Sys/Simpson Pulse Ox Last 24 Hr 35.8 C-37.2 C 62-84 14-20 90-115/52-93 91-100 Intake and Output 01/17/22 01/18/22 01/18/22 21:59 05:59 13:59 Intake Total 840 240 Output Total 375 550 Balance 465 -310 Weight 97.613 kg Intake & Output: Intake & Output 01/17/22 01/18/22 01/18/22 21:59 05:59 13:59 Intake Total 840 240 Output Total 375 550 Balance 465 -310 Weight 97.613 kg Intake: Nourishment/Supplement quantity 240 (ml) Oral 600 240 Output: Urine Catheter Amount 550 Void Amount 375 Other: Meal Dinner Breakfast Percent of Meal Consumed 75% 25% Feeding Ability Assist with Tray Set Up Assist with Tray Set Up Urine Appearance Clear Clear Urine Color Dark Yellow Dark Yellow Urine Odor Normal Normal Stool Size Moderate Stool Color Brown Stool Consistency Soft # Bowel Movements 1 General appearance: cooperative, no acute distress and obese Head Head exam: Present atraumatic and normal inspection Eye Eye exam: Present normal appearance ENT ENT exam: Present mucous membranes moist, normal exam and normal external ear exam Neck Neck exam: Present normal inspection Respiratory Respiratory exam: Present normal respiratory exam Cardiovascular Cardiovascular exam: Present irregular rhythm GI/Abdominal GI/Abdominal exam: Present normal bowel sounds Back Exam Back exam: Present normal inspection Neurological Exam Neurological exam: Present alert and altered; Absent oriented X3 Additional comments: oriented X1 to person only Skin Skin exam: Present intact and warm OBJ DATA Labs CBC & Chem 7: 01/18/22 05:34 01/18/22 05:34 Labs: Abnormal Lab Results 01/18/22 01/18/22 01/17/22 05:34 05:34 06:53 RBC 3.36 L Hgb 11.0 L Hct 33.4 L Plt Count 110 L 109 L MPV 11.0 H 11.6 H [place] % (Auto) 21.5 H 17.9 H [place] # (Auto) 1.22 H 1.40 H Creatinine 1.5 H Glucose 135 H Total Protein 5.3 L Albumin 3.1 L 01/17/22 01/16/22 01/16/22 06:40 10:25 05:45 RBC Hgb Hct Plt Count 96 L MPV [place] % (Auto) [place] # (Auto) Creatinine 1.4 H 1.3 H Glucose 195 H 123 H Total Protein Albumin Meds: Medications Acetaminophen (Acetaminophen 325 Mg Tablet) 650 mg PO Q4-6HP PRN; Protocol PRN Reason: Per Pain Protocol Last Admin: 01/18/22 10:25 Dose: 650 mg Documented by: Alendronate Sodium (Alendronate Sodium 70 Mg Tablet) 70 mg PO Sa@0730 [facility] Last Admin: 01/17/22 06:59 Dose: 70 mg Documented by: Dextrose (Dextrose 50% 50 Ml Vial) 0 ml IV UD PRN PRN Reason: Per Sliding Scale Diagnostic Test (Pha) (Accu-Chek 1 Each Strip) 1 each FS [facility] Last Admin: 01/18/22 08:39 Dose: 1 each Documented by: Divalproex Sodium (Divalproex Sodium 250 Mg Tablet) 125 mg PO BID [facility] Last Admin: 01/18/22 09:26 Dose: 125 mg Documented by: Glucose (Dextrose 31 Gm Oral.Susp) 15 gm PO PRN PRN PRN Reason: Hypoglycemia Acetaminophen (Ofirmev) 1,000 mg in 100 mls @ 200 mls/hr IV Q6HP PRN; Protocol PRN Reason: PAIN/FEVER > 101 Last Infusion: 01/15/22 13:29 Dose: Infused Documented by: Insulin Glargine (Insulin Glargine, Human 1 Unit/0.01 Ml) 15 unit SQ DAILY [facility] Last Admin: 01/18/22 09:26 Dose: 15 units Documented by: Insulin Human Lispro (Insulin Lispro 1 Unit/0.01 Ml Unit) 0 unit SQ [facility]; Protocol Last Admin: 01/18/22 09:27 Dose: 2 units Documented by: Metoprolol Tartrate (Metoprolol Tartrate 5 Mg/5 Ml Vial) 5 mg IV Q4HP PRN PRN Reason: Tachyarrhythmias Last Admin: 01/12/22 16:14 Dose: 5 mg Documented by: Olanzapine (Olanzapine 5 Mg Tablet) 5 mg PO HS [facility] Last Admin: 01/17/22 20:32 Dose: 5 mg Documented by: Pantoprazole Sodium (Pantoprazole 40 Mg Packet) 40 mg PO BIDAC [facility] Last Admin: 01/18/22 09:26 Dose: 40 mg Documented by: Polyethylene Glycol (Polyethylene Glycol 3350 17 Gm Packet) 17 gm PO DAILYP PRN PRN Reason: Constipation Last Admin: 01/16/22 11:23 Dose: 17 gm Documented by: Quetiapine Fumarate (Quetiapine 25 Mg Tablet) 25 mg PO BIDCC [facility] Last Admin: 01/18/22 10:25 Dose: 25 mg Documented by: Quetiapine Fumarate (Quetiapine 100 Mg Tablet) 100 mg PO [facility] Last Admin: 01/17/22 20:37 Dose: 100 mg Documented by: Senna (Sennosides 1 Tablet) 1 tab PO DAILYP PRN PRN Reason: constipation Last Admin: 01/16/22 09:11 Dose: 1 tab Documented by: Sertraline HCl (Sertraline 50 Mg Tablet) 50 mg PO DAILY [facility] Last Admin: 01/18/22 09:26 Dose: 50 mg Documented by: Simvastatin (Simvastatin 20 Mg Tablet) 20 mg PO [facility] Last Admin: 01/17/22 20:32 Dose: 20 mg Documented by: Sodium Chloride (0.9 % Sodium Chloride 10 Ml Syringe) 10 ml IV Q8 [facility] Last Admin: 01/18/22 05:47 Dose: Not Given Documented by: Tramadol HCl (Tramadol 50 Mg Tablet) 50 mg PO Q8HP PRN; Protocol PRN Reason: Pain Last Admin: 01/17/22 17:41 Dose: 50 mg Documented by: Vitamin D (Vitamin D3 25 Mcg Tablet) 50 mcg PO DAILY [facility] Last Admin: 01/18/22 09:26 Dose: 50 mcg Documented by: Warfarin Sodium (Warfarin Per Pharmacy) 1 order PO DAILY@1400 [facility] Last Admin: 01/17/22 13:04 Dose: Not Given Documented by: ABG Interpretation ABG results: 01/09/22 01/10/22 01/10/22 22:17 01:42 06:10 ABG Methemoglobin 0.2 L 0.2 L 0.2 L VBG pH 7.33 7.37 7.45 H VBG pCO2 32.1 L 42.0 36.0 L VBG pO2 37.8 40.3 H 109.7 H VBG HCO3 16.6 L 23.7 L 24.6 VBG Total CO2 17.6 L 25.0 25.7 VBG O2 Saturation 72.9 H 75.6 H 93.8 H VBG Base Excess -8 L -2 1 01/10/22 01/10/22 01/10/22 09:30 14:11 17:38 ABG Methemoglobin 0.1 L 0.2 L 0.3 L VBG pH 7.38 7.47 H 7.40 VBG pCO2 46.1 38.0 L 40.5 L VBG pO2 33.2 73.8 H 36.3 VBG HCO3 26.8 26.8 24.4 VBG Total CO2 28.3 28.0 25.6 VBG O2 Saturation 67.4 91.0 H 68.6 VBG Base Excess 1 3 0 01/10/22 19:54 ABG Methemoglobin 0.3 L VBG pH 7.47 H VBG pCO2 33.1 L VBG pO2 94.4 H VBG HCO3 23.3 L VBG Total CO2 24.3 L VBG O2 Saturation 92.8 H VBG Base Excess 0 A/P Assessment and plan (1) Diabetic keto-acidosis: Status: Acute (2) Acute renal failure: Status: Acute (3) Hypertension in stage 4 chronic kidney disease due to type 2 diabetes mellitus: Status: Chronic (4) Acute upper gastrointestinal bleeding: Status: Acute (5) CKD (chronic kidney disease) stage 4, GFR 15-29 ml/min: Status: Chronic (6) Secondary hyperparathyroidism of renal origin: Status: Chronic (7) Degenerative disc disease, lumbar: Status: Acute (8) Atrial fibrillation: Status: Chronic Qualifiers: Atrial fibrillation type: chronic Qualified Code(s): I48.2 - Chronic atrial fibrillation; I48.2 - Chronic atrial fibrillation; I48.2 - Chronic atrial fibrillation; I48.2 - Chronic atrial fibrillation (9) Diastolic dysfunction: Status: Acute (10) Hyperlipidemia: Status: Acute (11) Hypertension: Status: Acute Qualifiers: Hypertension type: essential hypertension Qualified Code(s): I10 - Esse ntial (primary) hypertension; I10 - Essential (primary) hypertension; I10 - Essential (primary) hypertension (12) Type II diabetes mellitus: Status: Acute (13) Depression: Status: Acute (14) Delirium: Status: Acute Narrative A/P Narrative: Assessment and Plans: 1. Acute delirium in the context of dementia: s/p tele-psychiatrist evaluation, recs. 0.25 mg twice a day after meals, in addition to 100 mg p.o. at bedtime, Depakote delayed release 125 mg twice daily, Zoloft 50 mg in the morning 1:1 sitter, or at least watch bed status Awaiting SNF placement Treat the other medical comorbidities accordingly, see the following 2. Atrial fibrillation: Hold beta nica at this moment due to soft blood pressure Resume Warfarin since stool occult blood negative, pharmacy dosing Daily INR, goal INR 2-3 3. h/o recent GI bleeding: Resume Warfarin since stool occult blood negative, pharmacy dosing cbc w/ auto diff in the morning to trend H/H GI outpatient follow up for potential endoscopy Protonix PO BID 4. Undifferentiated shock, hypovolemic vs septic: Blood and urine cultures no growth to date No Levophed needed Resume beta nica, metoprolol tartrate 12.5mg PO BID Encourage oral fluid intake 5. DKA, resolved: HgA1c Continue Lantus and SSI AC HS Accu Chek AC HS Hypoglycemia protocol Diabetic diet 6. Dyslipidemia: Continue statin therapy 7. BRENDAN on CKD stage IV, improved: Avoid nephrotoxic agents Currently saline lock CMP in the morning to trend kidney functions 8. Diastolic CHF with pulmonary edema: Echocardiogram showing LVEF 50-55%, stage III diastolic dysfunction, apical/basal WMA Currently tolerating room air Continue to monitor clinical status GI ppx: Protonix PO BID DVT ppx: Resume Warfarin since stool occult blood negative, pharmacy dosing Code status: DNI DNR Prognosis: stable Disposition: inpatient med surg; awaiting SNF placement Time Spent With Patient Time: Total time spent is greater than 50% in coordination of care (as documented) at patient's floor/unit and/or counseling patient: Total time spent with greater than 50% in coordination of care (as documented) at patient's floor/unit and/or counseling patient:: 25 - 35 minutes
[2022-01-18] MEDS ORDERED: WARFARIN 5 MG TABLET PO SCH (14:00)
[2022-01-18] MEDS: traMADol 50 MG TABLET PO PRN (15:22)
[2022-01-18] MEDS: QUEtiapine 100 MG TABLET PO SCH (21:06)
[2022-01-18] MEDS: SIMVASTATIN 20 MG TABLET PO SCH (21:07)
[2022-01-18] MEDS: METOPROLOL TARTRATE 25 MG TABLET PO SCH (21:07)
[2022-01-19] MEDS: 0.9 % SODIUM CHLORIDE 10 ML SYRINGE IV SCH (04:21)
[2022-01-19 07:27] LABS: Basophils # (Auto) 0.05 K/mcL (0.00-0.30); Basophils % (Auto) 1.1 % (0.0-2.0); Eosinophils # (Auto) 0.26 K/mcL (0.00-0.70); Eosinophils % (Auto) 5.7 % (0.0-7.0); Hematocrit 33.2 % (34.1-44.9); Lymphocytes # (Auto) 1.52 K/mcL (1.50-4.80); Lymphocytes % (Auto) 33.4 % (15.5-49.0); Mean Cell Volume 97.9 fL (80.0-100.0); Mean Corpuscular HGB Conc 33.1 g/dL (31.0-36.0); Mean Platelet Volume 10.9 fL (7.4-10.4); Monocytes # (Auto) 0.77 K/mcL (0.10-0.90); Monocytes % (Auto) 16.9 % (1.0-12.0); Neutrophils % (Auto) 42.9 % (38.0-78.0); Platelet Count 110 K/mcL (140-440); RBC 3.39 M/mcL (3.59-5.38); Red Cell Distribution Width 13.8 % (11.5-14.5); WBC 4.6 K/mcL (4.5-11.0)
[2022-01-19 07:36] LABS: INR 1.3 (0.9-1.1); Prothrombin Time 17.2 sec (11.9-14.5)
[2022-01-19 08:26] LABS: ALT/SGPT 14 U/L (<40); AST/SGOT 20 U/L (<32); Albumin 3.2 gm/dL (3.2-5.2); Albumin/Globulin Ratio 1.4 (1.0-2.3); Alkaline Phosphatase 84 U/L (39-117); Bilirubin,Total 0.4 mg/dL (0.1-1.0); Blood Urea Nitrogen 22 mg/dL (8-23); Calcium 9.1 mg/dL (8.6-10.4); Carbon Dioxide 29 mmol/L (22-30); Chloride 98 mmol/L (96-108); Globulin 2.3 gm/dL (2.2-3.7); Glomerular Filtration Rate 38; Glucose 119 mg/dL (70-105); Phosphorous 3.5 mg/dL (2.5-4.5)
[2022-01-19] MEDS: PANTOPRAZOLE 40 MG PACKET PO SCH ×2 (08:39→17:00)
[2022-01-19] MEDS: VITAMIN D3 25 MCG TABLET PO SCH (08:39)
[2022-01-19] MEDS: METOPROLOL TARTRATE 25 MG TABLET PO SCH ×2 (08:39→21:16)
[2022-01-19] MEDS: INSULIN GLARGINE, HUMAN 1 UNIT/0.01 ML SQ SCH (08:39)
[2022-01-19] MEDS: SERTRALINE 50 MG TABLET PO SCH (08:40)
[2022-01-19] MEDS: QUEtiapine 25 MG TABLET PO SCH ×2 (08:40→17:00)
[2022-01-19] MEDS: DIVALPROEX 125 MG CAP.SPRINK PO SCH ×2 (08:42→21:15)
[2022-01-19] MEDS: INSULIN LISPRO 1 UNIT/0.01 ML UNIT SQ SCH ×4 (08:44→21:14)
--- NOTE | 2022-01-19 12:42 | Internal Med Progress Note ---
SUBJECTIVE Subjective Patient information: Note initiated : 01/19/22 at 12:38 pm Service Date, if different from initiated Date: [] Patient: Maribel Reaves 81 y/o F admitted on 01/09/22 for Low blood pressure, elevated blood sugar. Chief Complaint: [] Interval history: Ms. Reaves is a 81 year old male with a history of hypertension, hyperlipidemia, insulin-dependent type 2 diabetes mellitus, atrial fibrillation on Coumadin, left ventricular diastolic dysfunction, pulmonary hypertension, chronic kidney disease stage IV who presented to the emergency department via EMS after a syncopal event and coffee ground emesis. In the emergency department the patient was found to be in shock, diabetic ketoacidosis as well as a lactic acidosis complicated by an acute on chronic kidney disease injury. There is concern for septic shock, the patient was started on broad-spectrum antibiotics, IV fluid resuscitation, Levophed for vasopressor support, and insulin infusion for diabetic ketoacidosis as well as a bicarbonate IV infusion for severe metabolic acidosis. Sepsis work-up included a urinalysis which was not suggestive of a UTI, chest x-ray which was suggestive of pulmonary vascular congestion, a CT abdomen pelvis showed bibasilar pulmonary parenchymal infiltrates that could represent pulmonary edema or interstitial pneumonia, cardiomegaly, previous cholecystectomy with prominent common bile duct without intrahepatic duct dilation, a distended fluid-filled stomach otherwise no clear reported evidence of an infectious process. Blood cultures were drawn in the ED. The patient required an right IJ central line placement. CODE STATUS was reviewed with the patient, the patient wishes to be DNR/DNI but is okay with medical management including vasopressor medications for shock. Hospital medicine was consulted for admission. 01/10 The patient was agitated overnight, pulled out the right IJ central line. Haldol prn started for agitation. Diabetic ketoacidosis resolved, transitioned off insulin infusion to subcutaneous Lantus and sliding scale Humalog. Off Levophed in the morning but was restarted for hypotension while the patient was sleeping. The patient is encephalopathic, CT head ordered and did not show any acute changes. INR down to 1.4, hemoglobin trend has been stable. Making urine and renal function improving. The patient has improved clinical but overall prognosis is still guarded, updated family and friends at the bedside. Overnight, the patient developed a anion gap and an insulin infusion was restarted. 01/11 Weaned off of Levophed, blood sugar stable on insulin infusion. Blood cultures showing no growth to date. Lactic acid decreased to 2.7. Continues on vancomycin and cefepime, renal function continues to improve. Chest x-ray showed pulmonary vascular congestion. 40 mg IV once given. Transthoracic echocardiogram ordered. Transition back to subcutaneous basal bolus insulin. 01/12 Patient became agitated and pulled out a lot of her lines overnight. Received Haldol. Drowsy this morning but does answer questions slowly. Unable to take p.o. at this point and will start tube feedings. Had to start vasopressor back on. Leukocytosis improved. Hypokalemia/ hypomagnesemia. Creatinine better. Awaiting stool sample for occult blood test. 01/13 Patient became quite agitated last night during a lines required IV Haldol Benadryl and subsequently Ativan to calm her. Patient appears to be resting comfortably and mildly drowsy but opens eyes and answers questions appropriately. Digital rectal exam reveals dark stool and was tested and is guaiac positive. 01/14 Blood pressure low last night but not enough to require Levophed. Patient started to eat a little bit more yesterday. No sedation needed for agitation last night. Patient drowsy this morning but does answer questions appropriat zen. 01/15 Patient did not require any Levophed last night. However she did require some IV Haldol for agitation and pulling at lines. Seems calm and cooperative this morning. Stable on sliding scale insulin no need for drip. 01/16 Patient doing well quite improved. Sitting up in bed eating breakfast. No agitation medications needed last night. Feeling better. No GI bleeding noted. Renal function stable and improved. 01/17: Status post telemetry psychiatrist evaluations on 01/16, diagnosed her with acute delirium, and recommended Seroquel, Depakote, and Zoloft. Patient had a good night sleep status post Seroquel 100 mg p.o. given at bedtime last night. Patient is currently complaining of mild to moderate lower back pain. Patient is otherwise feeling all right. Stool occult blood tested negative. H&H stable. Resume Coumadin. Awaiting custodial placement. 01/18: Patient had an uneventful night with reported good night sleep. Patient is currently complaining of mild to moderate lower back pain. Patient is otherwise feeling all right. H&H stable. Awaiting custodial placement. 01/19: One big bowel movement overnight, not black and non bloody. No new complaints. H/H stable. Awaiting custodial placement. Constitutional Vitals: Vital Signs Temp Pulse Resp BP Pulse Ox 36.3 C 92 H 20 125/79 95 01/19/22 08:00 01/19/22 08:00 01/19/22 08:00 01/19/22 08:00 01/19/22 08:00 Period Temp Pulse Resp BP Sys/Simpson Pulse Ox Last 24 Hr 36.1 C-36.7 C 62-92 16-20 94-125/56-79 91-95 Intake and Output 01/18/22 01/19/22 01/19/22 21:59 05:59 13:59 Intake Total 480 100 Output Total 350 850 Balance 130 -750 Weight 99.79 kg Intake & Output: Intake & Output 01/18/22 01/19/22 01/19/22 21:59 05:59 13:59 Intake Total 480 100 Output Total 350 850 Balance 130 -750 Weight 99.79 kg Intake: Nourishment/Supplement quantity 240 (ml) Oral 240 100 Output: Urine Catheter Amount 700 Void Amount 350 150 Other: Meal Dinner Percent of Meal Consumed 75% Feeding Ability Independent Urine Appearance Clear Clear Clear Urine Color Bright Yellow Bright Yellow Bright Yellow Urine Odor Normal Normal Stool Size Large Stool Color Brown Stool Consistency Soft Formed # Voids 1 # Bowel Movements 1 Exam: Lethargic Head Head exam: Present atraumatic and normal inspection Eye Eye exam: Present normal appearance ENT ENT exam: Present mucous membranes moist, normal exam and normal external ear exam Neck Neck exam: Present normal inspection Respiratory Respiratory exam: Present normal respiratory exam Cardiovascular Cardiovascular exam: Present irregular rhythm GI/Abdominal GI/Abdominal exam: Present normal bowel sounds Back Exam Back exam: Present normal inspection Neurological Exam Neurological exam: Absent alert or oriented X3 Additional comments: Lethargic Skin Skin exam: Present intact and warm OBJ DATA Labs CBC & Chem 7: 01/19/22 05:45 01/19/22 05:45 Labs: Abnormal Lab Results 01/19/22 01/19/22 01/19/22 05:45 05:45 05:45 RBC 3.39 L Hgb 11.0 L Hct 33.2 L Plt Count 110 L MPV 10.9 H [place] % (Auto) 16.9 H [place] # (Auto) PT 17.2 H INR 1.3 H Creatinine 1.3 H Glucose 119 H Total Protein 5.5 L Albumin 01/18/22 01/18/22 01/17/22 05:34 05:34 06:53 RBC 3.36 L Hgb 11.0 L Hct 33.4 L Plt Count 110 L 109 L MPV 11.0 H 11.6 H [place] % (Auto) 21.5 H 17.9 H [place] # (Auto) 1.22 H 1.40 H PT INR Creatinine 1.5 H Glucose 135 H Total Protein 5.3 L Albumin 3.1 L 01/17/22 06:40 RBC Hgb Hct Plt Count MPV [place] % (Auto) [place] # (Auto) PT INR Creatinine 1.4 H Glucose 195 H Total Protein Albumin Meds: Medications Acetaminophen (Acetaminophen 325 Mg Tablet) 650 mg PO Q4-6HP PRN; Protocol PRN Reason: Per Pain Protocol Last Admin: 01/18/22 10:25 Dose: 650 mg Documented by: Alendronate Sodium (Alendronate Sodium 70 Mg Tablet) 70 mg PO Sa@0730 [facility] Last Admin: 01/17/22 06:59 Dose: 70 mg Documented by: Dextrose (Dextrose 50% 50 Ml Vial) 0 ml IV UD PRN PRN Reason: Per Sliding Scale Diagnostic Test (Pha) (Accu-Chek 1 Each Strip) 1 each FS [facility] Last Admin: 01/19/22 11:45 Dose: 1 each Documented by: Divalproex Sodium (Divalproex 125 Mg Cap.Sprink) 125 mg PO BID [facility] Last Admin: 01/19/22 08:42 Dose: 125 mg Documented by: Glucose (Dextrose 31 Gm Oral.Susp) 15 gm PO PRN PRN PRN Reason: Hypoglycemia Acetaminophen (Ofirmev) 1,000 mg in 100 mls @ 200 mls/hr IV Q6HP PRN; Protocol PRN Reason: PAIN/FEVER > 101 Last Infusion: 01/15/22 13:29 Dose: Infused Documented by: Insulin Glargine (Insulin Glargine, Human 1 Unit/0.01 Ml) 15 unit SQ DAILY [facility] Last Admin: 01/19/22 08:39 Dose: 15 units Documented by: Insulin Human Lispro (Insulin Lispro 1 Unit/0.01 Ml Unit) 0 unit SQ [facility]; Protocol Last Admin: 01/19/22 11:46 Dose: Not Given Documented by: Metoprolol Tartrate (Metoprolol Tartrate 5 Mg/5 Ml Vial) 5 mg IV Q4HP PRN PRN Reason: Tachyarrhythmias Last Admin: 01/12/22 16:14 Dose: 5 mg Documented by: Metoprolol Tartrate (Metoprolol Tartrate 25 Mg Tablet) 12.5 mg PO BID [facility] Last Admin: 01/19/22 08:39 Dose: 12.5 mg Documented by: Pantoprazole Sodium (Pantoprazole 40 Mg Packet) 40 mg PO BIDAC [facility] Last Admin: 01/19/22 08:39 Dose: 40 mg Documented by: Polyethylene Glycol (Polyethylene Glycol 3350 17 Gm Packet) 17 gm PO DAILYP PRN PRN Reason: Constipation Last Admin: 01/16/22 11:23 Dose: 17 gm Documented by: Quetiapine Fumarate (Quetiapine 25 Mg Tablet) 25 mg PO BIDCC [facility] Last Admin: 01/19/22 08:40 Dose: 25 mg Documented by: Quetiapine Fumarate (Quetiapine 100 Mg Tablet) 100 mg PO [facility] Last Admin: 01/18/22 21:06 Dose: 100 mg Documented by: Senna (Sennosides 1 Tablet) 1 tab PO DAILYP PRN PRN Reason: constipation Last Admin: 01/16/22 09:11 Dose: 1 tab Documented by: Sertraline HCl (Sertraline 50 Mg Tablet) 50 mg PO DAILY [facility] Last Admin: 01/19/22 08:40 Dose: 50 mg Documented by: Simvastatin (Simvastatin 20 Mg Tablet) 20 mg PO [facility] Last Admin: 01/18/22 21:07 Dose: 20 mg Documented by: Sodium Chloride (0.9 % Sodium Chloride 10 Ml Syringe) 10 ml IV Q8 [facility] Last Admin: 01/19/22 04:21 Dose: Not Given Documented by: Tramadol HCl (Tramadol 50 Mg Tablet) 50 mg PO Q8HP PRN; Protocol PRN Reason: Pain Last Admin: 01/18/22 15:22 Dose: 50 mg Documented by: Vitamin D (Vitamin D3 25 Mcg Tablet) 50 mcg PO DAILY [facility] Last Admin: 01/19/22 08:39 Dose: 50 mcg Documented by: Warfarin Sodium (Warfarin Per Pharmacy) 1 order PO UD [facility] ABG Interpretation ABG results: 01/09/22 01/10/22 01/10/22 22:17 01:42 06:10 ABG Methemoglobin 0.2 L 0.2 L 0.2 L VBG pH 7.33 7.37 7.45 H VBG pCO2 32.1 L 42.0 36.0 L VBG pO2 37.8 40.3 H 109.7 H VBG HCO3 16.6 L 23.7 L 24.6 VBG Total CO2 17.6 L 25.0 25.7 VBG O2 Saturation 72.9 H 75.6 H 93.8 H VBG Base Excess -8 L -2 1 01/10/22 01/10/22 01/10/22 09:30 14:11 17:38 ABG Methemoglobin 0.1 L 0.2 L 0.3 L VBG pH 7.38 7.47 H 7.40 VBG pCO2 46.1 38.0 L 40.5 L VBG pO2 33.2 73.8 H 36.3 VBG HCO3 26.8 26.8 24.4 VBG Total CO2 28.3 28.0 25.6 VBG O2 Saturation 67.4 91.0 H 68.6 VBG Base Excess 1 3 0 01/10/22 19:54 ABG Methemoglobin 0.3 L VBG pH 7.47 H VBG pCO2 33.1 L VBG pO2 94.4 H VBG HCO3 23.3 L VBG Total CO2 24.3 L VBG O2 Saturation 92.8 H VBG Base Excess 0 A/P Assessment and plan (1) Diabetic keto-acidosis: Status: Acute (2) Acute renal failure: Status: Acute (3) Hypertension in stage 4 chronic kidney disease due to type 2 diabetes mellitus: Status: Chronic (4) Acute upper gastrointestinal bleeding: Status: Acute (5) CKD (chronic kidney disease) stage 4, GFR 15-29 ml/min: Status: Chronic (6) Secondary hyperparathyroidism of renal origin: Status: Chronic (7) Degenerative disc disease, lumbar: Status: Acute (8) Atrial fibrillation: Status: Chronic Qualifiers: Atrial fibrillation type: chronic Qualified Code(s): I48.2 - Chronic atrial fibrillation; I48.2 - Chronic atrial fibrillation; I48.2 - Chronic atrial fibrillation; I48.2 - Chronic atrial fibrillation (9) Diastolic dysfunction: Status: Acute (10) Hyperlipidemia: Status: Acute (11) Hypertension: Status: Acute Qualifiers: Hypertension type: essential hypertension Qualified Code(s): I10 - Essential (primary) hypertension; I10 - Essential (primary) hypertension; I10 - Essential (primary) hypertension (12) Type II diabetes mellitus: Status: Acute (13) Depression: Status: Acute (14) Delirium: Status: Acute Narrative A/P Narrative: Assessment and Plans: 1. Acute delirium in the context of dementia: s/p tele-psychiatrist evaluation, recs. 0.25 mg twice a day after meals, in addition to 100 mg p.o. at bedtime, Depakote delayed release 125 mg twice daily, Zoloft 50 mg in the morning 1:1 sitter, or at least watch bed status Awaiting SNF placement Treat the other medical comorbidities accordingly, see the following 2. Atrial fibrillation: Hold beta nica at this moment due to soft blood pressure Resume Warfarin since stool occult blood negative, pharmacy dosing Daily INR, goal INR 2-3 3. h/o recent GI bleeding: Resume Warfarin since stool occult blood negative, pharmacy dosing cbc w/ auto diff in the morning to trend H/H GI outpatient follow up for potential endoscopy Protonix PO BID 4. Undifferentiated shock, hypovolemic vs septic: Blood and urine cultures no growth to date No Levophed needed Resume beta nica, metoprolol tartrate 12.5mg PO BID Encourage oral fluid intake 5. DKA, resolved: HgA1c 10.0 Continue Lantus and SSI AC HS Accu Chek AC HS Hypoglycemia protocol Diabetic diet 6. Dyslipidemia: Continue statin therapy 7. BRENDAN on CKD stage IV, improved: Avoid nephrotoxic agents Currently saline lock CMP in the morning to trend kidney functions 8. Diastolic CHF with pulmonary edema: Echocardiogram showing LVEF 50-55%, stage III diastolic dysfunction, apical/basal WMA Currently tolerating room air Continue to monitor clinical status GI ppx: Protonix PO BID DVT ppx: Resume Warfarin since stool occult blood negative, pharmacy dosing Code status: DNI DNR Prognosis: stable Disposition: inpatient med surg; awaiting SNF placement Time Spent With Patient Time: Total time spent is greater than 50% in coordination of care (as documented) at patient's floor/unit and/or counseling patient: Total time spent with greater than 50% in coordination of care (as documented) at patient's floor/unit and/or counseling patient:: 25 - 35 minutes
[2022-01-19] MEDS ORDERED: WARFARIN 5 MG TABLET PO ONE (16:30)
[2022-01-19] MEDS: SIMVASTATIN 20 MG TABLET PO SCH (21:15)
[2022-01-19] MEDS: QUEtiapine 100 MG TABLET PO SCH (21:15)
[2022-01-20 07:29] LABS: Basophils # (Auto) 0.05 K/mcL (0.00-0.30); Eosinophils # (Auto) 0.21 K/mcL (0.00-0.70); Eosinophils % (Auto) 4.2 % (0.0-7.0); Hemoglobin 11.6 g/dL (11.2-15.7); Lymphocytes # (Auto) 1.94 K/mcL (1.50-4.80); Lymphocytes % (Auto) 39.2 % (15.5-49.0); Mean Cell Volume 98.4 fL (80.0-100.0); Mean Corpuscular HGB Conc 32.2 g/dL (31.0-36.0); Mean Platelet Volume 10.5 fL (7.4-10.4); Monocytes # (Auto) 0.76 K/mcL (0.10-0.90); Monocytes % (Auto) 15.4 % (1.0-12.0); Neutrophils % (Auto) 40.2 % (38.0-78.0); Platelet Count 131 K/mcL (140-440); RBC 3.66 M/mcL (3.59-5.38); Red Cell Distribution Width 14.3 % (11.5-14.5)
[2022-01-20 07:41] LABS: INR 1.5 (0.9-1.1); Prothrombin Time 18.9 sec (11.9-14.5)
[2022-01-20 08:00] LABS: ALT/SGPT 13 U/L (<40); AST/SGOT 21 U/L (<32); Albumin 3.5 gm/dL (3.2-5.2); Albumin/Globulin Ratio 1.5 (1.0-2.3); Alkaline Phosphatase 89 U/L (39-117); Bilirubin,Total 0.4 mg/dL (0.1-1.0); Blood Urea Nitrogen 19 mg/dL (8-23); Calcium 9.2 mg/dL (8.6-10.4); Carbon Dioxide 29 mmol/L (22-30); Chloride 99 mmol/L (96-108); Globulin 2.3 gm/dL (2.2-3.7); Glomerular Filtration Rate 38; Glucose 126 mg/dL (70-105); Phosphorous 2.7 mg/dL (2.5-4.5)
--- NOTE | 2022-01-20 10:15 | Discharge Summary ---
Discharge Provider Provider Patient information: Note initiated : 01/20/22 at 10:11 am Service Date, if different from initiated Date: [] Patient: Maribel Reaves 81 y/o F admitted on 01/09/22 for Low blood pressure, elevated blood sugar. Chief Complaint: [] Date of admission: 01/09/22 20:56 Discharge date: 01/20/22 Primary care physician: Adeola Saleh Attending physician on admission: Joaquin Correa Consults: 01/09/22 Consult to Physician [CONS] Stat Comment: Consulting Provider: Joaquin Correa Reason For Exam: Physician to Consult 01/16/22 13:01 Consult to Physician [CONS] Routine Comment: Consulting Provider: [facility] Reason For Exam: Physician to Consult Attending physician on discharge: Alexander Dumont Pumary beth Discharge Meds Discharge Medications Home Medications insulin lispro [Humalog KwikPen Insulin] 37 units SUB-Q TID 04/13/16 [History Confirmed 01/10/22 Last Taken Unknown] cholecalciferol (vitamin D3) 50 mcg (2,000 unit) capsule 2,000 unit PO QDAY #90 cap 12/20/17 [Rx Confirmed 01/09/22 Last Taken Unknown] iron, carbonyl 45 mg tablet 45 mg PO QHS tab 04/27/18 [History Confirmed 01/09/22 Last Taken Unknown] insulin glargine 100 unit/mL (3 mL) subcutaneous pen (Lantus Solostar U-100 Insulin) 18 unit (0.18 mL) SUB-Q QHS #15 ml 09/19/18 [Rx Confirmed 01/09/22 Last Taken Unknown] alendronate 70 mg tablet 70 mg PO QWEEK 01/21/21 [History Confirmed 01/09/22 Last Taken Unknown] nystatin 100,000 unit/gram topical powder 1 applic TOPICAL BID PRN 01/09/22 [History Confirmed 01/09/22 Last Taken Unknown] simvastatin 20 mg tablet 1 tab PO HS 01/09/22 [History Confirmed 01/09/22 Last Taken Unknown] carvedilol 6.25 mg tablet 3.125 mg PO BID #1 tab 01/16/22 [Rx Last Taken Unknown] dapagliflozin 10 mg tablet 10 mg PO QAM #30 tab 01/16/22 [Rx Last Taken Unknown] losartan 50 mg tablet 25 mg PO DAILY #1 tab 01/16/22 [Rx Last Taken Unknown] pantoprazole 40 mg granules delayed-release for susp in packet 40 mg PO BIDAC #60 ea 01/16/22 [Rx Last Taken Unknown] spironolactone 25 mg tablet 12.5 mg PO QDAY #30 tab 01/16/22 [Rx Last Taken Unknown] blood sugar diagnostic 01/17/22 [History Confirmed 01/17/22 Last Taken Unknown] pen needle, diabetic 31 gauge x 3/" 01/17/22 [History Confirmed 01/17/22 Last Taken Unknown] divalproex 125 mg capsule,delayed release sprinkle 125 mg PO BID #30 cap 01/20/22 [Rx Last Taken Unknown] metoprolol tartrate 25 mg tablet 12.5 mg PO BID #30 tab 01/20/22 [Rx Last Taken Unknown] quetiapine 100 mg tablet 100 mg PO HS #30 tab 01/20/22 [Rx Last Taken Unknown] quetiapine 25 mg tablet 25 mg PO BIDCC #30 tab 01/20/22 [Rx Last Taken Unknown] sertraline 50 mg tablet 50 mg PO DAILY #30 tab 01/20/22 [Rx Last Taken Unknown] warfarin 5 mg tablet 5 mg PO QDAY #30 tab 01/20/22 [Rx Last Taken Unknown] COURSE Hospital Course Hospital course: Ms. Reaves is a 81 year old male with a history of hypertension, hyperlipidemia, insulin-dependent type 2 diabetes mellitus, atrial fibrillation on Coumadin, left ventricular diastolic dysfunction, pulmonary hypertension, chronic kidney disease stage IV who presented to the emergency department via EMS after a syncopal event and coffee ground emesis. In the emergency department the patient was found to be in shock, diabetic ketoacidosis as well as a lactic acidosis complicated by an acute on chronic kidney disease injury. There is concern for septic shock, the patient was started on broad-spectrum antibiotics, IV fluid resuscitation, Levophed for vasopressor support, and insulin infusion for diabetic ketoacidosis as well as a bicarbonate IV infusion for severe metabolic acidosis. Sepsis work-up included a urinalysis which was not suggestive of a UTI, chest x-ray which was suggestive of pulmonary vascular congestion, a CT abdomen pelvis showed bibasilar pulmonary parenchymal infiltrates that could represent pulmonary edema or interstitial pneumonia, cardiomegaly, previous cholecystectomy with prominent common bile duct without intrahepatic duct dilation, a distended fluid-filled stomach otherwise no clear reported evidence of an infectious process. Blood cultures were drawn in the ED. The patient required an right IJ central line placement. CODE STATUS was reviewed with the patient, the patient wishes to be DNR/DNI but is okay with medical management including vasopressor medications for shock. Hospital medicine was consulted for admission. 01/10 The patient was agitated overnight, pulled out the right IJ central line. Haldol prn started for agitation. Diabetic ketoacidosis resolved, transitioned off insulin infusion to subcutaneous Lantus and sliding scale Humalog. Off Levophed in the morning but was restarted for hypotension while the patient was sleeping. The patient is encephalopathic, CT head ordered and did not show any acute changes. INR down to 1.4, hemoglobin trend has been stable. Making urine and renal function improving. The patient has improved clinical but overall prognosis is still guarded, updated family and friends at the bedside. Overnight, the patient developed a anion gap and an insulin infusion was restarted. 01/11 Weaned off of Levophed, blood sugar stable on insulin infusion. Blood cultures showing no growth to date. Lactic acid decreased to 2.7. Continues on vancomycin and cefepime, renal function continues to improve. Chest x-ray showed pulmonary vascular congestion. 40 mg IV once given. Transthoracic echocardiogram ordered. Transition back to subcutaneous basal bolus insulin. 01/12 Patient became agitated and pulled out a lot of her lines overnight. Received Haldol. Drowsy this morning but does answer questions slowly. Unable to take p.o. at this point and will start tube feedings. Had to start vasopressor back on. Leukocytosis improved. Hypokalemia/ hypomagnesemia. Creatinine better. Awaiting stool sample for occult blood test. 01/13 Patient became quite agitated last night during a lines required IV Haldol Benadryl and subsequently Ativan to calm her. Patient appears to be resting comfortably and mildly drowsy but opens eyes and answers questions appropriately. Digital rectal exam reveals dark stool and was tested and is guaiac positive. 01/14 Blood pressure low last night but not enough to require Levophed. Patient started to eat a little bit more yesterday. No sedation needed for agitation last night. Patient drowsy this morning but does answer questions appropriately. 01/15 Patient did not require any Levophed last night. However she did require some IV Haldol for agitation and pulling at lines. Seems calm and cooperative this morning. Stable on sliding scale insulin no need for drip. 01/16 Patient doing well quite improved. Sitting up in bed eating breakfast. No agitation medications needed last night. Feeling better. No GI bleeding noted. Renal function stable and improved. 01/17: Status post telemetry psychiatrist evaluations on 01/16, diagnosed her with acute delirium, and recommended Seroquel, Depakote, and Zoloft. Patient had a good night sleep status post Seroquel 100 mg p.o. given at bedtime last night. Patient is currently complaining of mild to moderate lower back pain. Patient is otherwise feeling all right. Stool occult blood tested negative. H&H stable. Resume Coumadin. Awaiting assisted placement. 01/18: Patient had an uneventful night with reported good night sleep. Patient is currently complaining of mild to moderate lower back pain. Patient is otherwise feeling all right. H&H stable. Awaiting assisted placement. 01/19: One big bowel movement overnight, not black and non bloody. Otherwise stable and no major overnight events. Pending SNF placement. 01/20: Reached clinical stability, discharged to SNF. Discharge diagnosis: DKA Time Spent with Patient Time attestation: Total time spent providing and/or coordinating discharge services: Time spent: Greater than 30 minutes EXAM Constitutional Vitals: Temp Pulse Resp BP Pulse Ox 35.7 C L 69 16 111/66 92 01/20/22 08:00 01/20/22 08:00 01/20/22 08:00 01/20/22 08:00 01/20/22 08:00 General appearance: cooperative and no acute distress Head Head exam: Present atraumatic and normocephalic Eye Eye exam: Present EOMI and PERRL ENT ENT exam: Present mucous membranes moist, normal exam and normal external ear exam Neck Neck exam: Present normal inspection; Absent lymphadenopathy, tenderness or thyromegaly Respiratory Respiratory exam: Absent accessory muscle use, respiratory distress or wheezes Cardiovascular Cardiovascular exam: Present irregular rhythm; Absent JVD GI/Abdominal GI/Abdominal exam: Present normal bowel sounds and soft; Absent organomegaly or tenderness Extremities Exam Extremities exam: Present full ROM, normal capillary refill and normal inspection; Absent tenderness Neurological Exam Neurological exam: Present alert, altered and CN II-XII intact; Absent motor sensory deficit or oriented X3 Additional comments: oriented X1 to person only Psychiatric Psychiatric exam: Present normal affect and normal mood; Absent anxious or depressed Skin Skin exam: Present dry and intact Discharge Data Data Completed and Pending Labs on day of discharge: Labs from last 24 hours 01/20/22 01/20/22 01/20/22 06:10 06:10 06:10 WBC 5.0 RBC 3.66 Hgb 11.6 Hct 36.0 MCV 98.4 MCH 31.7 MCHC 32.2 RDW 14.3 Plt Count 131 L MPV 10.5 H Neut % (Auto) 40.2 Lymph % (Auto) 39.2 Cross % (Auto) 15.4 H Eos % (Auto) 4.2 Baso % (Auto) 1.0 Lymph # (Auto) 1.94 Cross # (Auto) 0.76 Eos # (Auto) 0.21 Baso # (Auto) 0.05 Absolute Neutrophils 1.99 PT 18.9 H INR 1.5 H Sodium 138 Potassium 3.7 Chloride 99 Carbon Dioxide 29 Anion Gap 10.0 BUN 19 Creatinine 1.3 H GFR Calculation 38 Glucose 126 H Calcium 9.2 Phosphorus 2.7 Magnesium 2.0 Total Bilirubin 0.4 AST 21 ALT 13 Alkaline Phosphatase 89 Total Protein 5.8 L Albumin 3.5 Globulin 2.3 Albumin/Globulin Ratio 1.5 Discharge Plan Patient/Caregiver Discharge Instructions Activity: increase activity as tolerated Diet: Consistent Carbohydrate Activity Restrictions/Additional Instructions: Hold home warfarin until seen by general surgery for EGD. Monitor your blood pressure twice daily, keep a log and bring to PCP. Keep a log of your blood glucose readings and bring to PCP. Prescriptions: New dapagliflozin 10 mg tablet 10 mg PO QAM Qty: 30 0RF spironolactone 25 mg tablet 12.5 mg PO QDAY Qty: 30 0RF pantoprazole [address] For Susp In Packet 40 mg PO BIDAC Qty: 60 0RF quetiapine 25 mg Tablet 25 mg PO BIDCC Qty: 30 0RF quetiapine 100 mg Tablet 100 mg PO HS Qty: 30 0RF sertraline 50 mg Tablet 50 mg PO DAILY Qty: 30 0RF divalproex 125 mg Capsule, Delayed Rel Sprinkle 125 mg PO BID Qty: 30 0RF metoprolol tartrate 25 mg Tablet 12.5 mg PO BID Qty: 30 0RF warfarin 5 mg tablet 5 mg PO QDAY Qty: 30 0RF Continued insulin lispro 37 units SUB-Q TID 0RF cholecalciferol (vitamin D3) 2,000 unit capsule 2,000 unit PO QDAY Qty: 90 4RF insulin glargine [Lantus Solostar U-100 Insulin] 100 unit/mL (3 mL) insulin pen 18 unit SUB-Q QHS Qty: 15 0RF iron, carbonyl 45 mg tablet 45 mg PO QHS 0RF alendronate 70 mg tablet 70 mg PO QWEEK 0RF nystatin 100,000 unit/gram powder 1 applic topical BID PRN (Reason: Rash) 0RF Rx Instructions: Apply under breasts and groin BID simvastatin 20 mg tablet 1 tab PO HS 0RF Changed losartan 50 mg tablet 25 mg PO DAILY Qty: 1 0RF carvedilol 6.25 mg tablet 3.125 mg PO BID Qty: 1 0RF Discontinued warfarin 5 mg tablet 5 mg PO QDAY 0RF triamterene-hydrochlorothiazid 37.5-25 mg capsule 1 cap PO QDAY 0RF No Action (DME) pen needle, diabetic 31 gauge x 3/16" Needle MISCELLANEOUS 0RF (DME) blood sugar diagnostic Strip MISCELLANEOUS 0RF Follow Up Plan Follow up with: Adeola Saleh MD [Primary Care Provider] - Fito Claudio MD [Physician] - (EGD) Patient Disposition: Home Health Service Prognosis: Good Rehab Potential: Good I certify that the patient requires SNF services: Yes Overall status at discharge: patient is back to baseline Discharge Orders: Discharge Order (Routine); Ordered 01/20/22 Ordered By: Alexander Pham
[2022-01-20] MEDS: INSULIN LISPRO 1 UNIT/0.01 ML UNIT SQ SCH ×2 (10:18→11:31)
[2022-01-20] MEDS: DIVALPROEX 125 MG CAP.SPRINK PO SCH (11:28)
[2022-01-20] MEDS: VITAMIN D3 25 MCG TABLET PO SCH (11:28)
[2022-01-20] MEDS: SERTRALINE 50 MG TABLET PO SCH (11:29)
[2022-01-20] MEDS: QUEtiapine 25 MG TABLET PO SCH (11:29)
[2022-01-20] MEDS: PANTOPRAZOLE 40 MG PACKET PO SCH (11:29)
[2022-01-20] MEDS: METOPROLOL TARTRATE 25 MG TABLET PO SCH (11:30)
[2022-01-20] MEDS: INSULIN GLARGINE, HUMAN 1 UNIT/0.01 ML SQ SCH (11:30)
[2022-01-20] MEDS ORDERED: WARFARIN 5 MG TABLET PO ONE (14:00)
== END 2022-01-20 12:05 | disposition home health service (06) | DRG 871 ==
LOC: ED 09:20 → ICU 20:56 → MEDSUR 01-18 14:16
PROVIDERS: ADMIT Internal Medicine; ATTEND Internal Medicine